=== PATIENT | female | born 1935 | race Hispanic/Latino ===

== ENCOUNTER 2018-03-28 11:49 | Emergency (ER) | payer OTHER ==
--- OUTSIDE RECORDS SUMMARY | 2018-03-28 11:50 | XMS REPORT ---
:1935 Author Organization eClinicalWorks Care Team Providers Name Role Phone Andrew Munoz Provider Role Unavailable Allergies, Adverse Reactions, Alerts Substance Reaction Event Type N.K.D.A. Info Not Available Non Drug Allergy Problems Problem Type Condition Code Onset Dates Condition Status Assessment Chronic diastolic (congestive) heart I50.32 Active failure Assessment Viral upper respiratory tract J06.9 Active infection Problem Atherosclerotic heart disease of I25.10 Active [place] coronary artery without angina pectoris Problem Chronic diastolic (congestive) heart I50.32 Active failure Problem Essential (primary) hypertension I10 Active Problem Bilateral hearing loss, unspecified H91.93 Active hearing loss type Problem Type 2 diabetes mellitus without E11.9 Active complication, unspecified whether detention insulin use Problem Hyperlipidemia, unspecified E78.5 Active hyperlipidemia type Problem Cardiac arrhythmia, unspecified I49.9 Active cardiac arrhythmia type Assessment Essential (primary) hypertension I10 Active Assessment Type 2 diabetes mellitus without E11.9 Active complication, unspecified whether detention insulin use Assessment Bilateral hearing loss, unspecified H91.93 Active hearing loss type Assessment Hyperlipidemia, unspecified E78.5 Active hyperlipidemia type Assessment Abnormal kidney function N28.9 Active Assessment Atherosclerotic heart disease of I25.10 Active [place] coronary artery without angina pectoris Medications Medication Code Code Instructions Start End Status Dosage System Date Date Metformin HCl [facility] [address]-74 1000 MG Orally Active 1 tablet Twice a day with a meal Carvedilol [facility] [address]-68 12.5 MG Orally Active as directed twice a day NovoLog Mix [facility] [address]-27 (70-30) 100 Active 10 units 70/30 Flexpen UNIT/ML Subcutaneous once a day Fluticasone [facility] 21971241489 50 MCG/ACT Feb 09, Active 1 spray in Propionate Nasally Once a 2018 each day nostril Benazepril HCl [facility] 52662114395 20 MG Orally Active 1 tablet Once a day Amlodipine ND 34999345616 10 MG Orally Active 1 tablet Besylate Once a day Simvastatin [facility] 99451071377 20 MG Orally Active 1 tablet in Once a day the evening Megestrol [facility] [address]-98 40 MG/ML Orally Active 20 ml Acetate Once a day Loratadine [facility] 14232342034 10 MG Orally Feb 09, Apr 10, Active 1 capsule Once a day 2017 2017 Alendronate [facility] 89495678702 70 MG Orally Active 1 tablet Sodium every week Results No Known Results Summary Purpose eClinicalWorks Submission
[2018-03-28] MEDS ORDERED: ALBUTEROL 2.5 MG/3 ML NEB SOL ONE (12:54)
--- NOTE | 2018-03-28 13:00 | RAD REPORT ---
EXAM DESCRIPTION: RAD - Chest Single View - 03/28/2018 12:54 pm CLINICAL HISTORY: COUGH Chest pain. COMPARISON: No comparisons FINDINGS: Portable technique limits examination quality. Interstitial markings are prominent bilaterally likely representing pulmonary edema or interstitial p neumonia. The heart is mildly enlarged in size. No displaced fractures.
[2018-03-28 13:29] LABS: Absolute Lymphocytes (CBC) 0.7 K/uL (0.7-4.9); Absolute Monocytes 0.5 K/uL (0.1-1.3); Absolute Neutrophil 4.9 K/uL (1.8-8.0); Eosinophils % 3.1 % (0-4.4); Hematocrit 26.9 % (36.0-45.0); Lymphocytes % 10.7 % (15.3-44.8); MCH 25.8 pg (27.0-35.0); MCV 78.4 fL (80-100); MPV 10.6 fL (7.6-11.3); Monocytes % 7.5 % (3.3-12.3); RBC Red Blood Cell Count 3.44 M/uL (3.86-4.86)
[2018-03-28 13:45] LABS: BUN Blood Urea Nitrogen 26 mg/dL (7-18); Bicarbonate 26 mmol/L (21-32); Glucose Level 263 mg/dL (74-106); NT PRO-BNP 5275 pg/mL (<450); Sodium Level 142 mmol/L (136-145); Troponin (Emerg Dept Use Only) < 0.02 ng/mL (0.0-0.045)
[2018-03-28] MEDS ORDERED: FUROSEMIDE 20 MG/ 2ML VIAL ONE (14:15)
--- NOTE | 2018-03-28 14:44 | EDPHYS ---
Physician Documentation [facility] Name: Dahlia Reyes Age: 82 yrs Sex: Female : 1935 Arrival Date: 03/28/2018 Time: 11:51 Bed 15 Private MD: Andrew Munoz ED Physician Lino Colin HPI: 03/28 14:34 This 82 yrs old Female presents to ER via Ambulatory with complaints of Cough. gs 14:34 The patient or guardian reports cough, that is intermittent. Onset: The gs symptoms/episode began/occurred 2 week(s) ago. Severity of symptoms: At their worst the symptoms were moderate, in the emergency department the symptoms are unchanged. Associated signs and symptoms: Pertinent negatives: chest pain. 14:39 Modifying factors: the symptoms are aggravated by exertion. The patient has experienced gs similar episodes in the past, a few times. The patient has been recently seen by a physician: the patient's primary care provider. Historical: - Allergies: 11:57 No Known Allergies; sg - Home Meds: 11:57 Insulin: Regular Sub-Q [Active]; Metformin Oral [Active]; sg - PMHx: 11:57 Diabetes - NIDDM; High Cholesterol; Hypertension; sg - PSHx: 11:57 Hysterectomy; Cholecystectomy; sg - Immunization history:: Adult Immunizations up to date. - Social history:: Smoking status: Patient/guardian denies using tobacco. - Ebola Screening: : Patient negative for fever greater than or equal to 101.5 degrees Fahrenheit, and additional compatible Ebola Virus Disease symptoms Patient denies exposure to infectious person Patient denies travel to an Ebola-affected area in the 21 days before illness onset No symptoms or risks identified at this time. ROS: 14:39 All other systems are negative. gs Exam: 14:39 Head/Face: Normocephalic, atraumatic. Eyes: Pupils equal round and reactive to light, gs extra-ocular motions intact. Lids and lashes normal. Conjunctiva and sclera are non-icteric and not injected. Cornea within normal limits. Periorbital areas with no swelling, redness, or edema. ENT: Nares patent. No nasal discharge, no septal abnormalities noted. Tympanic membranes are normal and external auditory canals are clear. Oropharynx with no redness, swelling, or masses, exudates, or evidence of obstruction, uvula midline. Mucous membranes moist. Neck: Trachea midline, no thyromegaly or masses palpated, and no cervical lymphadenopathy. Supple, full range of motion without nuchal rigidity, or vertebral point tenderness. No Meningismus. Chest/axilla: Normal chest wall appearance and motion. Nontender with no deformity. No lesions are appreciated. 14:39 Abdomen/GI: Soft, non-tender, with normal bowel sounds. No distension or tympany. No guarding or rebound. No evidence of tenderness throughout. Back: No spinal tenderness. No costovertebral tenderness. Full range of motion. Skin: Warm, dry with normal turgor. Normal color with no rashes, no lesions, and no evidence of cellulitis. Neuro: Awake and alert, GCS 15, oriented to person, place, time, and situation. Cranial nerves II-XII grossly intact. Motor strength 5/5 in all extremities. Sensory grossly intact. Cerebellar exam normal. Normal gait. 14:39 Constitutional: The patient appears alert, awake. 14:39 Cardiovascular: Rate: bradycardic, Rhythm: regular, Pulses: no pulse deficits are appreciated. 14:39 ECG was reviewed by the Attending Physician. 14:39 Respiratory: the patient does not display signs of respiratory distress, Respirations: normal, Breath sounds: rales, that are moderate, are located in both bases, are heard in the left posterior lower lobe, right posterior middle lobe and right posterior lower lobe. 14:39 Musculoskeletal/extremity: Circulation is intact in all extremities. Edema, 1+ to the left ankle, left foot, right ankle and right foot is noted. Vital Signs: 11:58 Pulse 89; Resp 18; Temp 97.6; Pulse Ox 100% ; Weight 55.34 kg (R); Height 4 ft. 11 in. sg (149.86 cm); Pain 3/10; 12:00 BP 144 / 71; sg 14:13 BP 154 / 65; Pulse 55; Resp 19; Pulse Ox 98% on R/A; mh5 11:58 Body Mass Index 24.64 (55.34 kg, 149.86 cm) MDM: 12:32 Patient medically screened. 14:39 Differential Diagnosis: Bronchitis Asthma Exacerbation Pneumonia Other chf. Data gs reviewed: vital signs, nurses notes. Response to treatment: the patient's symptoms have markedly improved after treatment. ED course: pt and family says have had this before do not want admission will take diuretics follow up next week. 03/28 12:38 Order name: Basic Metabolic Panel; Complete Time: 13:55 gs 03/28 12:38 Order name: CBC with Diff; Complete Time: 13:55 03/28 12:38 Order name: Troponin (emerg Dept Use Only); Complete Time: 13:55 03/28 12:38 Order name: XRAY Chest (1 view); Complete Time: 13:04 03/28 12:38 Order name: PROBNP; Complete Time: 13:55 gs 03/28 12:38 Order name: EKG; Complete Time: 12:39 03/28 12:38 Order name: Cardiac monitoring; Complete Time: 13:22 03/28 12:38 Order name: EKG - Nurse/Tech; Complete Time: 13:22 gs 03/28 12:38 Order name: IV Saline Lock; Complete Time: 13:22 03/28 12:38 Order name: Labs collected and sent; Complete Time: 13:22 03/28 12:38 Order name: O2 Per Protocol; Complete Time: 13:22 gs 03/28 12:38 Order name: O2 Sat Monitoring; Complete Time: 13:22 gs EC:39 Rate is 50 beats/min. Rhythm is regular. MT interval is normal. QRS interval is normal. gs QT interval is normal. T waves are Normal. No ST changes noted. Clinical impression: Sinus bradycardia. Interpreted by me. Administered Medications: 13:21 Drug: Albuterol 2.5 mg Route: Inhalation; [facility] 13:45 Follow up: Response: No adverse reaction [facility] 14:16 Drug: Lasix 20 mg Route: IVP; Site: right antecubital; jl7 14:59 Follow up: Response: No adverse reaction jl7 Disposition: 03/28/18 14:43 Discharged to Home. Impression: Heart failure, unspecified. - Condition is Stable. - Discharge Instructions: Heart Failure. - Prescriptions for Lasix 40 mg Oral Tablet - take 1 tablet by ORAL route once daily .; 10 tablet. Potassium Chloride 20 meq Oral Packet - take 1 packet by ORAL route once daily 1 packet in 6 (six) ounces of water or juice; Take after meal start in two days; 5 packet. Albuterol Sulfate 90 mcg/actuation - inhale 1-2 puff by INHALATION route every 4-6 hours; 1 Inhaler. - Medication Reconciliation Form, Thank You Letter, Antibiotic Education, Prescription Opioid Use form. - Follow up: Private Physician; When: 1 - 2 days; Reason: Re-evaluation by your physician. Follow up: Medardo Nickerson MD; When: 2 - 3 days; Reason: Re-evaluation by your physician. Signatures: Dispatcher [employer] EDFlavio Horton RN RN sg Liam Cancino RN RN jl7 Lino Colin MD MD gs Corrections: (The following items were deleted from the chart) 15:01 14:43 03/28/2018 14:43 Discharged to Home. Impression: Heart failure, unspecified. jl7 Condition is Stable. Forms are Medication Reconciliation Form, Thank You Letter, Antibiotic Education, Prescription Opioid Use. Follow up: Private Physician; When: 1 - 2 days; Reason: Re-evaluation by your physician. Follow up: Medardo Nickerson; When: 2 - 3 days; Reason: Re-evaluation by your physician. gs
--- NOTE | 2018-03-28 14:44 | ER ---
Nurse's Notes [facility] Name: Dahlia Reyes Age: 82 yrs Sex: Female : 1935 Arrival Date: 03/28/2018 Time: 11:51 Bed 15 Private MD: Andrew Munoz Diagnosis: Heart failure, unspecified Presentation: 03/28 11:55 Presenting complaint: Child states: Daughter states that she has had a cough for the sg last couple nights, has worsened last night, she sounded like she was choking out last night, has been taking OTC medications for the cough, but it has just been getting worse, denies fever/diarrhea/nausea. Transition of care: patient was not received from another setting of care. Onset of symptoms was March 28, 2018. Risk Assessment: Do you want to hurt yourself or someone else? Patient reports no desire to harm self or others. Care prior to arrival: None. 11:55 Method Of Arrival: Ambulatory sg 11:55 Acuity: NOE 3 sg 12:20 Initial Sepsis Screen: Does the patient meet any 2 criteria? No. Patient's initial jl7 sepsis screen is negative. Does the patient have a suspected source of infection? No. Patient's initial sepsis screen is negative. Historical: - Allergies: 11:57 No Known Allergies; sg - Home Meds: 11:57 Insulin: Regular Sub-Q [Active]; Metformin Oral [Active]; sg - PMHx: 11:57 Diabetes - NIDDM; High Cholesterol; Hypertension; sg - PSHx: 11:57 Hysterectomy; Cholecystectomy; sg - Immunization history:: Adult Immunizations up to date. - Social history:: Smoking status: Patient/guardian denies using tobacco. - Ebola Screening: : Patient negative for fever greater than or equal to 101.5 degrees Fahrenheit, and additional compatible Ebola Virus Disease symptoms Patient denies exposure to infectious person Patient denies travel to an Ebola-affected area in the 21 days before illness onset No symptoms or risks identified at this time. Screenin:30 Abuse screen: Denies threats or abuse. Denies injuries from another. Nutritional jl7 screening: No deficits noted. Tuberculosis screening: No symptoms or risk factors identified. Fall Risk No fall in past 12 months (0 pts). No secondary diagnosis (0 pts). IV access (20 points). Ambulatory Aid- Crutches/Cane/Walker (15 pts). Gait- Normal/Bed Rest/Wheelchair (0 pts) Mental Status- Oriented to own ability (0 pts). Total Benítez Fall Scale indicates Low Risk Score (25-44 pts). Fall prevention measures have been instituted. Side Rails Up X 2 Placed close to Nursing Station Frequent Obs/Assesments occuring Family Present and informed to notify staff if they need to leave bedside As available Patient and Family Educated on Fall Prevention Program and strategies. Assessment: 13:22 General: Appears in no apparent distress. comfortable, Behavior is calm, cooperative, jl7 appropriate for age. Pain: Denies pain. Neuro: Level of Consciousness is awake, alert, obeys commands, Oriented to person, place, time, situation. Cardiovascular: Heart tones present Patient's skin is warm and dry. Respiratory: Reports cough that is hacking, persistent Airway is patent Respiratory effort is even, unlabored, Respiratory pattern is regular, symmetrical, Breath sounds are coarse bilaterally. Breath sounds with crackles bilaterally. GI: No signs and/or symptoms were reported involving the gastrointestinal system. : No signs and/or symptoms were reported regarding the genitourinary system. EENT: Reports Very hard of hearing. Derm: Skin is pink, warm \T\ dry. Musculoskeletal: No signs and/or symptoms reported regarding the musculoskeletal system. 14:30 Reassessment: No changes from previously documented assessment. Patient and/or family jl7 updated on plan of care and expected duration. Pain level reassessed. Patient is alert, oriented x 3, equal unlabored respirations, skin warm/dry/pink. Vital Signs: 11:58 Pulse 89; Resp 18; Temp 97.6; Pulse Ox 100% ; Weight 55.34 kg (R); Height 4 ft. 11 in. sg (149.86 cm); Pain 3/10; 12:00 BP 144 / 71; sg 14:13 BP 154 / 65; Pulse 55; Resp 19; Pulse Ox 98% on R/A; mh5 11:58 Body Mass Index 24.64 (55.34 kg, 149.86 cm) ED Course: 11:51 Patient arrived in ED. mr 11:52 Andrew Munoz MD is Private Physician. mr 11:56 Triage completed. sg 11:56 Arm band placed on. sg 12:07 Colin, Lino, MD is Attending Physician. 12:20 Patient has correct armband on for positive identification. Placed in gown. Bed in low jl7 position. Call light in reach. Side rails up X 1. 12:46 Liam Cancino RN is Primary Nurse. jl7 12:53 X-ray completed. Portable x-ray completed in exam room. Patient tolerated procedure tm4 well. 12:54 XRAY Chest (1 view) In Process Unspecified. EDMS 13:26 Initial lab(s) drawn, by me, sent to lab. Inserted saline lock: 20 gauge in right jl7 antecubital area, using aseptic technique. Blood collected. 14:37 Assisted to bathroom. jl7 14:43 Medardo Nickerson MD is Referral Physician. 15:00 No provider procedures requiring assistance completed. IV discontinued, intact, jl7 bleeding controlled, No redness/swelling at site. Pressure dressing applied. Administered Medications: 13:21 Drug: Albuterol 2.5 mg Route: Inhalation; jl7 13:45 Follow up: Response: No adverse reaction jl7 14:16 Drug: Lasix 20 mg Route: IVP; Site: right antecubital; jl7 14:59 Follow up: Response: No adverse reaction jl7 Outcome: 14:43 Discharge ordered by . 15:00 Discharged to home ambulatory, with family. jl7 15:00 Condition: stable 15:00 Discharge instructions given to patient, family, Instructed on discharge instructions, follow up and referral plans. medication usage, Demonstrated understanding of instructions, follow-up care, medications, Prescriptions given X 3. 15:01 Patient left the ED. jl7 Signatures: Dispatcher [employer] EDMS Flavio Fritz, RN MEL Callahan, Shoshana Olivera tm4 Rhina Kendrick 5 Liam Cancino, MEL LEAL jl7 Lino Colin MD MD
--- NOTE | 2018-03-29 06:47 | EKG ---
Test Date: 2018-03-28 Test Time: 13:27:26 [employer]: [place] MEASUREMENT RESULTS: Intervals: Rate: 50 MS: 128 QRSD: 86 QT: 464 QTc: 423 Alpha: P: 51 MS: 128 QRS: 25 T: 21 INTERPRETIVE STATEMENTS: Sinus bradycardia Otherwise normal ECG No previous ECG available for comparison Electronically Signed On 03-29-18 06:46:10 CDT by Joseph Edwards
== END 2018-03-28 15:01 | disposition home or self-care (01) ==
LOC: ER 11:49
DX: I50.9 Heart failure, unspecified (principal); I10 Essential (primary) hypertension; E11.9 Type 2 diabetes mellitus without complications; Z79.4 Long term (current) use of insulin
CPT/HCPCS: 36415; 71045; 80048; 83880; 84484; 85025; 93005; 96374; 99284; J1940

== ENCOUNTER 2018-04-30 11:03 | Inpatient (IN) | payer OTHER ==
--- OUTSIDE RECORDS SUMMARY | 2018-04-30 11:06 | XMS REPORT ---
[...] Problem Atherosclerotic heart disease of I25.10 Active [place] coronary artery without angina pectoris Problem Chronic diastolic (congestive) heart I50.32 Active failure Problem Essential (primary) hypertension I10 Active Problem Bilateral hearing loss, unspecified H91.93 Active hearing loss type Problem Type 2 diabetes mellitus without E11.9 Active complication, unspecified whether snf insulin use Problem Hyperlipidemia, unspecified E78.5 Active hyperlipidemia type Problem Cardiac arrhythmia, unspecified I49.9 Active cardiac arrhythmia type Assessment Essential (primary) hypertension I10 Active Assessment Type 2 diabetes mellitus without E11.9 Active complication, unspecified whether snf insulin use Assessment Bilateral hearing loss, unspecified H91.93 Active hearing loss type Assessment Hyperlipidemia, unspecified E78.5 Active hyperlipidemia type Assessment Abnormal kidney function N28.9 Active Assessment Atherosclerotic heart disease of I25.10 Active [place] coronary artery without angina pectoris Medications Medication Code Code Instructions Start End Status Dosage System Date Date Metformin HCl [facility] [address]-60 1000 MG Orally Active 1 tablet Twice a day with a meal Carvedilol [facility] [address]-77 12.5 MG Orally Active as directed twice a day NovoLog Mix [facility] [address]-26 (70-30) 100 Active 10 units 70/30 Flexpen UNIT/ML Subcutaneous once a day Fluticasone [facility] 15243628234 50 MCG/ACT Feb 09, Active 1 spray in Propionate Nasally Once a 2018 each day nostril Benazepril HCl [facility] 01168958711 20 MG Orally Active 1 tablet Once a day Amlodipine ND 34049789149 10 MG Orally Active 1 tablet Besylate Once a day Simvastatin [facility] 16703700085 20 MG Orally Active 1 tablet in Once a day the evening Megestrol [facility] [address]-82 40 MG/ML Orally Active 20 ml Acetate Once a day Loratadine [facility] 12938054056 10 MG Orally Feb 09, Apr 10, Active 1 capsule Once a day [address] [facility] 27584176940 70 MG Orally Active 1 tablet Sodium every week Results No Known Results Summary Purpose eClinicalWorks Submission
--- OUTSIDE RECORDS SUMMARY | 2018-04-30 11:06 | XMS REPORT ---
:1935 Author [facility] Team Providers Name Role Phone Andrew Munoz Provider Role Unavailable Allergies No Known Allergies Problems Problem Type Condition Code Onset Dates Condition Status Assessment Hyperlipidemia, unspecified E78.5 Active hyperlipidemia type Problem Bilateral hearing loss, unspecified H91.93 Active hearing loss type Assessment Stage 3 chronic kidney disease N18.3 Active Assessment Essential (primary) hypertension I10 Active Assessment Chronic diastolic (congestive) heart I50.32 Active failure Problem Type 2 diabetes mellitus without E11.9 Active complication, 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 Problem Essential (primary) hypertension I10 Active Problem Stage 3 chronic kidney disease N18.3 Active Problem Hyperlipidemia, unspecified E78.5 Active hyperlipidemia type Problem Cardiac arrhythmia, unspecified I49.9 Active cardiac arrhythmia type Problem Atherosclerotic heart disease of I25.10 Active [place] coronary artery without angina pectoris Problem Chronic diastolic (congestive) heart I50.32 Active failure Medications Medication Code Code Instructions Start End Status Dosage System Date Date Loratadine [facility] 07984395042 10 MG Orally Feb 09, Apr 10, Active 1 capsule Once a day 2017 2017 Carvedilol [facility] 21762768315 12.5 MG Orally Active as directed twice a day Albuterol [facility] [address]-23 108 (90 Base) Active 2 puffs as Sulfate HFA MCG/ACT needed Inhalation every 6 hrs Benazepril HCl [facility] 76930476129 20 MG Orally Active 1 tablet Once a day Fluticasone [facility] 27827027353 50 MCG/ACT Feb 09, Active 1 spray in Propionate Nasally Once a 2018 each day nostril NovoLog Mix [facility] 12910049762 (70-30) 100 Active 10 units 70/30 Flexpen UNIT/ML Subcutaneous once a day Metformin HCl [facility] 04277436422 1000 MG Orally Active 1 tablet Twice a day with a meal Amlodipine [facility] 96865530065 10 MG Orally Active 1 tablet Besylate Once a day Alendronate [facility] 57477555263 70 MG Orally Active 1 tablet Sodium every week Potassium [facility] 35714737157 - Active as directed Chloride Simvastatin [facility] 47770482954 20 MG Orally Active 1 tablet in Once a day the evening ProAir HFA [facility] 94262736479 108 (90 Base) Mar 31, Active 2 puffs as MCG/ACT 2018 needed Inhalation every 6 hrs Megestrol [facility] 75128608140 40 MG/ML Orally Active 20 ml Acetate Once a day Lasix [facility] 64123252668 20 MG Orally Active 1 tablet Once a day Results No Known Results Summary Purpose eClinicalWorks Submission
--- NOTE | 2018-04-30 11:59 | RAD REPORT ---
EXAM DESCRIPTION: CT - Head Brain Wo Cont - 04/30/2018 11:43 am CLINICAL HISTORY: Right facial numbness COMPARISON: None TECHNIQUE: Computed axial tomography of the head was obtained. IV contrast was not requested. All CT scans are performed using dose optimization technique as appropriate and may include automated exposure control or mA/KV adjustment according to patient size. FINDINGS: Couple of tiny areas of increased density are present within the left basal ganglia. . The ventricles are normal in caliber. Small low-density within the right cerebellum may indicate old infarct No extra-axial fluid collection is noted. Mild to moderate low-density areas within periventricular, deep and subcortical white matter likely represent ischemic changes secondary to small vessel disease . Small amount of fluid within the ethmoid sinus may indicate acute sinusitis. IMPRESSION: A couple of punctate areas increased density within the left basal ganglia likely repres ent calcification. No acute intracranial abnormality is seen. Given the history of right facial numbn ess MRI the brain is recommended for further evaluation
[2018-04-30 12:36] LABS: Absolute Lymphocytes (CBC) 0.6 K/uL (0.7-4.9); Absolute Monocytes 0.7 K/uL (0.1-1.3); Basophils % 1.3 % (0-1.3); Eosinophils % 0.5 % (0-4.4); Hematocrit 27.9 % (36.0-45.0); Lymphocytes % 5.1 % (15.3-44.8); MCH 24.4 pg (27.0-35.0); MCV 76.2 fL (80-100); MPV 10.1 fL (7.6-11.3); RBC Red Blood Cell Count 3.67 M/uL (3.86-4.86)
[2018-04-30 12:53] LABS: Potassium 4.4 mmol/L (3.5-5.1)
--- NOTE | 2018-04-30 12:58 | RAD REPORT ---
EXAM DESCRIPTION: Fermni Diaz And Lat (2 Views)04/30/2018 11:55 am CLINICAL HISTORY: Cough COMPARISON: February 2018 FINDINGS: Moderate bilateral reticulonodular opacities are present within the lungs without signifi cant change. The heart is normal size IMPRESSION: Moderate bilateral reticulonodular opacities within the lungs may indicate atypical inf ection
[2018-04-30 13:03] LABS: Urine White Blood Cell Casts OK
[2018-04-30 13:04] LABS: Anisocytosis 1+; Blood Morphology Comment NOTED (NOT SEEN); Hypochromasia 1+; Platelet Estimate ADEQ; Platelets, Giant FEW
[2018-04-30] MEDS ORDERED: METHYLPREDNISOLONE 125 MG INJ ONE (13:50)
[2018-04-30] MEDS ORDERED: LEVALBUTEROL 1.25 MG/3 ML NEB ONE (13:50)
[2018-04-30] MEDS ORDERED: Levofloxacin500mg IV 500 MG/100 ML BAG IV ONE (13:51)
--- NOTE | 2018-04-30 13:53 | ER ---
Nurse's Notes [facility] Name: Dahlia Reyes Age: 82 yrs Sex: Female : 1935 Arrival Date: 04/30/2018 Time: 11:06 Bed 20 Private MD: Andrew Munoz Diagnosis: Interstitial Pneumonia;Chronic obstructive pulmonary disease with acute lower respiratory infection;Acute kidney failure Presentation: 04/30 11:11 Presenting complaint: Patient states: "I've had this cough forever and the doctors aj1 can't do anything for me. I'm not eating, I've lost my appetite." Reports cough for the past 3 months. Reports that she had some numbness to the left side of her face that started 2 days ago and is still there but not as bad. Daughter states that her eye looked "sleepy" 2 days ago, but that has resolved. Reports generalized weakness. Transition of care: patient was not received from another setting of care. No acute neurological deficit is noted. Onset of symptoms was April 28, 2018. Risk Assessment: Do you want to hurt yourself or someone else? Patient reports no desire to harm self or others. Initial Sepsis Screen: Does the patient meet any 2 criteria? No. Patient's initial sepsis screen is negative. Does the patient have a suspected source of infection? Yes: Productive cough/pneumonia. Care prior to arrival: None. 11:11 Method Of Arrival: Ambulatory aj1 11:11 Acuity: NOE 3 aj1 Triage Assessment: 11:17 The onset of the patients symptoms was April 28, 2018 at 06:00. General: Appears in aj1 no apparent distress. comfortable, Behavior is calm, cooperative, appropriate for age. Pain: Complains of pain in generalized pain Pain currently is 7 out of 10 on a pain scale. Neuro: Level of Consciousness is awake, alert, obeys commands, Oriented to person, place, time, situation, Pointing Machine Operator are equal bilaterally Speech is normal, Reports numbness to the face that started 2 days ago generalized weakness. Cardiovascular: Patient's skin is warm and dry. Respiratory: Airway is patent Respiratory effort is even, unlabored, Respiratory pattern is regular, symmetrical. Stroke Activation: Symptom onset > 6 hours Physician: Stroke Attending; Name: ; Notified At: ; Arrived At: Physician: Chief Stroke Resident; Name: ; Notified At: ; Arrived At: Physician: Stroke Resident; Name: ; Notified At: ; Arrived At: Physician: ED Attending; Name: ; Notified At: ; Arrived At: Physician: ED Resident; Name: ; Notified At: ; Arrived At: Historical: - Allergies: :17 No Known Allergies; aj1 - Home Meds: 11:17 Insulin: Regular Sub-Q [Active]; Metformin Oral [Active]; Megestrol Acetate Oral aj1 [Active]; alendronate oral oral [Active]; amlodipine oral [Active]; benazepril oral oral [Active]; carvedilol oral oral [Active]; Simvastatin Oral [Active]; - PMHx: 11:17 Diabetes - NIDDM; High Cholesterol; Hypertension; COPD; aj1 - PSHx: 15:13 Hysterectomy; ; Appendectomy; Knee surgery; Tonsillectomy; em 15:13 Cholecystectomy; em - Immunization history:: Flu vaccine is up to date. - Social history:: Smoking status: Patient/guardian denies using tobacco. - Ebola Screening: : Patient denies travel to an Ebola-affected area in the 21 days before illness onset. - Family history:: not pertinent. - Hospitalizations: : No recent hospitalization is reported. Screenin:30 Abuse screen: Denies threats or abuse. Nutritional screening: No deficits noted. em Tuberculosis screening: No symptoms or risk factors identified. Fall Risk None identified. Assessment: 11:30 General: Appears in no apparent distress. comfortable, Behavior is calm, cooperative. em Pain: Denies pain. Neuro: Level of Consciousness is awake, alert, obeys commands, Oriented to person, place, time, situation, Reports eye and lip numbness that lasted several minutes, but has resolved. Cardiovascular: Heart tones S1 S2 present Capillary refill < 3 seconds Patient's skin is warm and dry. Respiratory: Airway is patent Respiratory effort is even, unlabored, Respiratory pattern is regular, symmetrical, Breath sounds with crackles bilaterally. GI: Abdomen is flat. : No signs and/or symptoms were reported regarding the genitourinary system. EENT: No signs and/or symptoms were reported regarding the EENT system. Derm: Skin is intact, Skin is pink, warm \\T\\ dry. Musculoskeletal: Range of motion: intact in all extremities. 11:40 Reassessment: I agree with previous assessment. hb 12:29 Reassessment: Patient appears in no apparent distress at this time. Patient and/or em family updated on plan of care and expected duration. Pain level reassessed. Patient is alert, oriented x 3, equal unlabored respirations, skin warm/dry/pink. 13:32 Reassessment: Patient appears in no apparent distress at this time. Patient and/or em family updated on plan of care and expected duration. Pain level reassessed. Patient is alert, oriented x 3, equal unlabored respirations, skin warm/dry/pink. Patient denies pain at this time. 14:52 Reassessment: Patient appears in no apparent distress at this time. Patient and/or em family updated on plan of care and expected duration. Pain level reassessed. Patient is alert, oriented x 3, equal unlabored respirations, skin warm/dry/pink. Patient denies pain at this time. Patient states feeling better. Vital Signs: 11:17 BP 130 / 60; Pulse 67; Resp 20; Temp 98.0; Pulse Ox 93% on R/A; Weight 53.52 kg (R); aj1 Height 5 ft. 2 in. (157.48 cm) (R); 12:30 BP 124 / 74; Pulse 66; Resp 19; Pulse Ox 93% on R/A; em 13:31 BP 116 / 79; Pulse 68; Resp 21; Pulse Ox 96% on R/A; Pain 0/10; em 14:53 BP 134 / 78; Pulse 81; Resp 19; Pulse Ox 94% on R/A; Pain 0/10; em 11:17 Body Mass Index 21.58 (53.52 kg, 157.48 cm) aj1 ED Course: 11:06 Patient arrived in ED. sb2 11:07 Andrew Munoz MD is Private Physician. sb2 11:15 Triage completed. aj1 11:17 Arm band placed on Patient placed in an exam room. aj1 11:20 Joe Neal LVN is Primary Nurse. em 11:22 Gamaliel Torres MD is Attending Physician. rn 11:30 Patient has correct armband on for positive identification. Placed in gown. Bed in low em position. Call light in reach. Side rails up X2. Adult w/ patient. 11:42 CT completed. Patient tolerated procedure well. Patient moved to CT via wheelchair. [id number] Patient moved to radiology via wheelchair. Patient moved back from CT. 11:43 CT Head Brain wo Cont In Process Unspecified. EDMS 11:50 X-ray completed. Patient tolerated procedure well. Patient moved back from radiology. kw 11:51 XRAY Chest Pa And Lat (2 Views) In Process Unspecified. EDMS 12:20 Initial lab(s) drawn, by me, sent to lab. Inserted saline lock: 20 gauge in right em forearm, using aseptic technique. Blood collected. 13:52 Andrew Munoz MD is Hospitalizing Provider. rn 15:05 No provider procedures requiring assistance completed. Patient admitted, IV remains in em place. Administered Medications: 13:45 Drug: Xopenex 1.25 mg Route: Inhalation; em 14:30 Follow up: Response: No adverse reaction; Marked relief of symptoms em 13:47 Drug: SOLU-Medrol 125 mg Route: IVP; Site: right forearm; hb 14:30 Follow up: Response: No adverse reaction em 14:05 Drug: LevaQUIN 500 mg Volume: 100 ml; Route: IVPB; Infused Over: 60 mins; Site: right em forearm; 14:58 Follow up: Response: No adverse reaction; IV Status: Completed infusion; IV Intake: em 100ml Intake: 14:58 IV: 100ml; Total: 100ml. em Outcome: 13:53 Decision to Hospitalize by Provider. rn 15:05 Admitted to Tele accompanied by tech, via wheelchair, room 212, with chart, Report em called to MEL Rendon 15:05 Condition: good 15:05 Instructed on the need for admit, Demonstrated understanding of instructions. 15:19 Patient left the ED. Signatures: Dispatcher [employer] EDSwathi King RN RN aj1 Joe Neal, HORIZONTAL BORING MILL OPERATOR HORIZONTAL BORING MILL OPERATOR em Gamaliel Torres MD MD rn Whitley, Kimberlee kw Baxter, Heather, RN RN Angela Lombardi Jessica jg6
--- NOTE | 2018-04-30 13:53 | EDPHYS ---
Physician Documentation [facility] Name: Dahlia Reyes Age: 82 yrs Sex: Female : 1935 Arrival Date: 04/30/2018 Time: 11:06 Bed 20 Private MD: Andrew Munoz ED Physician Gamaliel Torres HPI: 04/30 12:31 This 82 yrs old Female presents to ER via Ambulatory with complaints of Cough, rn Weakness, Numbness Of Face. 12:31 The patient or guardian reports cough. Onset: The symptoms/episode began/occurred 3 rn month(s) ago. Severity of symptoms: At their worst the symptoms were moderate, in the emergency department the symptoms are unchanged. Modifying factors: The symptoms are alleviated by nothing, the symptoms are aggravated by nothing. The patient has experienced similar episodes in the past. Reports chronic cough, no clear diagnosis, has been told has COPD, from second hand smoke, no fever, reports cough is starting to cause her to lose appetite and trouble sleeping. No hemoptysis. Also reports right sided facial weakness yesterday, no longer present, has happened before. No other focal neurological complaint. No acute change in cough. Has been sent to pulmonology and cardiology. On diuretics.. Historical: - Allergies: 11:17 No Known Allergies; aj1 - Home Meds: 11:17 Insulin: Regular Sub-Q [Active]; Metformin Oral [Active]; Megestrol Acetate Oral aj1 [Active]; alendronate oral oral [Active]; amlodipine oral [Active]; benazepril oral oral [Active]; carvedilol oral oral [Active]; Simvastatin Oral [Active]; - PMHx: 11:17 Diabetes - NIDDM; High Cholesterol; Hypertension; COPD; aj1 - PSHx: 15:13 Hysterectomy; ; Appendectomy; Knee surgery; Tonsillectomy; em 15:13 Cholecystectomy; em - Immunization history:: Flu vaccine is up to date. - Social history:: Smoking status: Patient/guardian denies using tobacco. - Ebola Screening: : Patient denies travel to an Ebola-affected area in the 21 days before illness onset. - Family history:: not pertinent. - Hospitalizations: : No recent hospitalization is reported. ROS: 12:31 Constitutional: Negative for fever, chills, and weight loss, Eyes: Negative for injury, rn pain, redness, and discharge, Cardiovascular: Negative for chest pain, palpitations, and edema, Respiratory: Negative for wheezing, and pleuritic chest pain, Abdomen/GI: Negative for abdominal pain, nausea, vomiting, diarrhea, and constipation, MS/Extremity: Negative for injury and deformity, Skin: Negative for injury, rash, and discoloration, Neuro: Negative for headache, and seizure. Exam: 12:31 Constitutional: This is a well developed, well nourished patient who is awake, alert, rn and in no acute distress. + persistent cough. Head/Face: Normocephalic, atraumatic. ENT: no stridor, MMM Cardiovascular: Regular rate and rhythm with a normal S1 and S2. No gallops, murmurs, or rubs. Normal PMI, no JVD. No pulse deficits. Respiratory: + bibasilar crackles, no wheezing, mild tachypnea Abdomen/GI: soft, non-tender Skin: Warm, dry with normal turgor. Normal color with no rashes, no lesions, and no evidence of cellulitis. MS/ Extremity: Pulses equal, no cyanosis. Neurovascular intact. Full, normal range of motion. Equal circumference. Neuro: Awake and alert, GCS 15, oriented to person, place, time, and situation. Cranial nerves II-XII grossly intact. Motor strength 5/5 in all extremities. Sensory grossly intact. Cerebellar exam normal. Vital Signs: 11:17 BP 130 / 60; Pulse 67; Resp 20; Temp 98.0; Pulse Ox 93% on R/A; Weight 53.52 kg (R); aj1 Height 5 ft. 2 in. (157.48 cm) (R); 12:30 BP 124 / 74; Pulse 66; Resp 19; Pulse Ox 93% on R/A; em 13:31 BP 116 / 79; Pulse 68; Resp 21; Pulse Ox 96% on R/A; Pain 0/10; em 14:53 BP 134 / 78; Pulse 81; Resp 19; Pulse Ox 94% on R/A; Pain 0/10; em 11:17 Body Mass Index 21.58 (53.52 kg, 157.48 cm) aj MDM: 11:22 Patient medically screened. rn 13:51 Differential Diagnosis: Bronchitis Upper Respiratory Infection Viral Syndrome rn Pneumonia. Data reviewed: vital signs, nurses notes, lab test result(s), EKG, radiologic studies, plain films, and as a result, I will admit patient. Counseling: I had a detailed discussion with the patient and/or guardian regarding: the historical points, exam findings, and any diagnostic results supporting the discharge/admit diagnosis, lab results, radiology results, the need for further work-up and treatment in the hospital. Response to treatment: the patient's symptoms have mildly improved after treatment, and as a result, I will admit patient. Admission orders: after a detailed discussion of the patient's condition and case, the admit orders are written by me. 04/30 11:32 Order name: CBC with Diff; Complete Time: 13:07 rn 04/30 11:32 Order name: Basic Metabolic Panel; Complete Time: 13:07 rn 04/30 11:32 Order name: XRAY Chest Pa And Lat (2 Views); Complete Time: 13:07 rn 04/30 11:32 Order name: N-Terminal Pro-brain Natriuretic Peptide; Complete Time: 13:07 rn 04/30 12:41 Order name: CBC Smear Scan; Complete Time: 13:07 EDMS 04/30 13:39 Order name: Blood Culture Adult (2) rn 04/30 11:32 Order name: IV Start; Complete Time: 12:22 rn 04/30 11:32 Order name: CT Head Brain wo Cont; Complete Time: 13:07 rn Administered Medications: 13:45 Drug: Xopenex 1.25 mg Route: Inhalation; em 14:30 Follow up: Response: No adverse reaction; Marked relief of symptoms em 13:47 Drug: SOLU-Medrol 125 mg Route: IVP; Site: right forearm; hb 14:30 Follow up: Response: No adverse reaction em 14:05 Drug: LevaQUIN 500 mg Volume: 100 ml; Route: IVPB; Infused Over: 60 mins; Site: right em forearm; 14:58 Follow up: Response: No adverse reaction; IV Status: Completed infusion; IV Intake: em 100ml Disposition: 04/30/18 13:53 Hospitalization ordered by Andrew Munoz for Inpatient Admission. Preliminary diagnosis are Interstitial Pneumonia, Chronic obstructive pulmonary disease with acute lower respiratory infection, Acute kidney failure. - Bed requested for Telemetry/MedSurg (Inpatient). - Status is Inpatient Admission. hb - Condition is Stable. - Problem is new. - Symptoms have improved. UTI on Admission? No Signatures: Dispatcher [employer] Swathi Werner, RN RN aj1 Joe Neal, STRAW HAT PLUNGER OPERATOR STRAW HAT PLUNGER OPERATOR em Gamaliel Torres MD MD rn Baxter, Heather, RN RN Andressa Abreu Corrections: (The following items were deleted from the chart) 13:56 13:53 Hospitalization Ordered by Andrew Munoz MD for Inpatient Admission. Preliminary eb diagnosis is Interstitial Pneumonia; Chronic obstructive pulmonary disease with acute lower respiratory infection; Acute kidney failure. Bed requested for Telemetry/MedSurg (Inpatient). Status is Inpatient Admission. Condition is Stable. Problem is new. Symptoms have improved. UTI on Admission? No. rn 14:37 13:56 04/30/2018 13:53 Hospitalization Ordered by Andrew Munoz MD for Inpatient eb Admission. Preliminary diagnosis is Interstitial Pneumonia; Chronic obstructive pulmonary disease with acute lower respiratory infection; Acute kidney failure. Bed requested for Telemetry/MedSurg (Inpatient). Status is Inpatient Admission. Condition is Stable. Problem is new. Symptoms have improved. UTI on Admission? No. eb 15:19 14:37 04/30/2018 13:53 Hospitalization Ordered by Andrew Munoz MD for Inpatient hb Admission. Preliminary diagnosis is Interstitial Pneumonia; Chronic obstructive pulmonary disease with acute lower respiratory infection; Acute kidney failure. Bed requested for Telemetry/MedSurg (Inpatient). Status is Inpatient Admission. Condition is Stable. Problem is new. Symptoms have improved. UTI on Admission? No. eb
[2018-04-30] MEDS ORDERED: ONDANSETRON 4 MG/2 ML VIAL IV PRN (15:48)
[2018-04-30] MEDS ORDERED: ALBUTEROL 2.5 MG/3 ML NEB SOL NEB PRN (15:48)
[2018-04-30 16:15] VITALS: BMI 39.3
[2018-04-30] MEDS ORDERED: METHYLPREDNISOLONE 40 MG INJ IV SCH (17:00)
[2018-04-30] MEDS ORDERED: GLUCAGON 1 MG/VIAL IM PRN (17:41)
[2018-04-30] MEDS ORDERED: D50W 25 GM/50 ML SYRINGE IV PRN (17:41)
--- NOTE | 2018-04-30 17:44 | P.HP ---
Certification for Inpatient Patient admitted to: Inpatient With expected LOS: >2 Midnights Patient will require the following post-hospital care: None Practitioner: I am a practitioner with admitting privileges, knowledge of patient current condition, hospital course, and medical plan of care. Services: Services provided to patient in accordance with Admission requirements found in Title 42 Section 412.3 of the Code of Federal Regulations Patient History Date of Service: 04/30/18 Primary Care Provider: Alexander Reason for admission: strep pneumonia History of Present Illness: Patient is an office patient of [facility]. History of heart disease for which she see's Dr. Maurice in [place]. Diabetes, htn and ckd. She has been having a cough on and off for 3 months. Has been to the office. States she has not been eating very well, been getting weaker. The patient came to the ER. She was found to have worsening bilateral basilar infiltrates. She had elevated creatine and BUN. She had stable vitals. However based on her advanced age decided to bring her in for iv antibiotics. Allergies No Known Allergies Allergy (Verified 04/30/18 15:33) Home Medications: Alendronate Sodium 70 mg PO Q7D 04/30/18 Amlodipine Besylate 10 mg PO DAILY 04/30/18 Benazepril HCl 20 mg PO DAILY 04/30/18 Carvedilol 12.5 mg PO BIDWM 04/30/18 Furosemide 40 mg PO DAILY 04/30/18 Insulin Aspart Protam & Aspart [Novolog Mix 70-30 Flexpen Syrn] 10 unit SQ DAILY 04/30/18 Megestrol [Megace*] 800 mg PO DAILY 04/30/18 Metformin HCl 1,000 mg PO BIDWM 04/30/18 Simvastatin 20 mg PO BEDTIME 04/30/18 - Past Medical/Surgical History Has patient received pneumonia vaccine in the past: Yes Diabetic: Yes -: 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 -: HTN -: hyperlipidemia, -: Rt knee surg -: lana -: toncilectomy -: hystectomy -: appy - Family History Father -: Cancer Notes: prostrate Mother -: Stroke - Social History Smoking Status: Never smoker Alcohol use: Yes CD- Drugs: No Caffeine use: Yes Place of Residence: Home Review of Systems 10-point ROS is otherwise unremarkable General: Weakness, Malaise Respiratory: Cough, Sputum (states 3tbsp in the am) Physical Examination - Vital Signs Temperature: 98.0 F Blood Pressure: 134/78 Pulse: 81 Respirations: 19 - Physical Exam General: Alert, In no apparent distress HEENT: Atraumatic, PERRLA, Mucous membr. moist/pink, EOMI, Sclerae nonicteric Neck: Supple, 2+ carotid pulse no bruit, No LAD, Without JVD or thyroid abnormality Respiratory: Clear to auscultation bilaterally, Normal air movement Cardiovascular: Regular rate/rhythm, Normal S1 S2 Gastrointestinal: Normal bowel sounds, No tenderness Musculoskeletal: No tenderness Integumentary: No rashes Neurological: Normal gait, Normal speech, Normal strength at 5/5 x4 extr, Normal tone, Normal affect Lymphatics: No axilla or inguinal lymphadenopathy - Studies Laboratory Data (last 24 hrs) 04/30/18 12:20: WBC 12.6 H, Hgb 8.9 L, Hct 27.9 L, Plt Count 287 04/30/18 12:20: Sodium 140, Potassium 4.4, BUN 43 H, Creatinine 2.10 H, Glucose 77 Assessment and Plan - Problems (Diagnosis) (1) Streptococcus pneumoniae Current Visit: Yes Status: Acute Plan: Patient's curb 65 is 2. Which correlates for a 3% mortality. Will start her on fluids. Gently hydration and breathing treatment. Will stop the patient steroids. She is not currently wheezing (2) Diabetes 1.5, managed as type 2 Current Visit: Yes Status: Acute Plan: Will hold the patients metformin due to kidney function. Will cover her on the sliding scale. (3) Acute on chronic renal failure Current Visit: Yes Status: Acute Plan: Patients baseline creatine is 1.5, a stage 3. Will start her on gently hydration. Hold jessica and metformin. Will continue amlodipine. Restart carvedilol as her bp and kidney function recover Qualifiers: Chronic kidney disease stage: stage 4 (severe) (4) CHF (congestive heart failure), NYHA class I Current Visit: Yes Status: Acute Plan: treated by Dr. Maurice. Had a recent outpatient echo. Will hold the beta mai. Restart in the am. Hold the jessica. Continue simvastatin Qualifiers: Congestive heart failure type: unspecified Qualified Code(s): I50.9 - Heart failure, unspecified Discharge Plan: Home Plan to discharge in: 48 Hours - Advance Directives Does patient have a Living Will: Yes Does patient have a Durable POA for Healthcare: Yes - Code Status/Comfort Care Code Status Assessed: No Code Status: Full Code Physician Review: Patient Assessed, Agree with Above Assessment and Plan Critical Care: No Time Spent Managing Pts Care (In Minutes): 50
[2018-04-30] MEDS: ENOXAPARIN 30 MG/0.3 ML SQ SCH (18:08)
[2018-04-30] MEDS: NA CHLORIDE 0.9% 1,000 ML IV SCH (18:10)
[2018-04-30] MEDS: ATORVASTATIN 10 MG TAB PO SCH (20:22)
[2018-04-30] MEDS ORDERED: HOME MED 1 EA UNK (Simvastatin [Simvastatin] 20 MG) PO SCH (21:00)
[2018-04-30] MEDS: INSULIN -REGULAR HUMAN 50 UNIT/0.5 ML ML SQ SCH (21:34)
[2018-05-01 06:10] LABS: Absolute Lymphocytes (CBC) 0.4 K/uL (0.7-4.9); Absolute Monocytes 0.1 K/uL (0.1-1.3); Absolute Neutrophil 9.5 K/uL (1.8-8.0); Hematocrit 25.6 % (36.0-45.0); Lymphocytes % 4.2 % (15.3-44.8); MCH 24.9 pg (27.0-35.0); MCV 77.8 fL (80-100); MPV 10.4 fL (7.6-11.3); Monocytes % 1.1 % (3.3-12.3)
[2018-05-01 06:33] LABS: Potassium 5.6 mmol/L (3.5-5.1)
[2018-05-01] MEDS: NA CHLORIDE 0.9% 1,000 ML IV SCH ×2 (06:35→20:11)
[2018-05-01] MEDS: PANTOPRAZOLE 40MG TABLET PO SCH (08:54)
[2018-05-01] MEDS: ASPIRIN EC 81 MG TAB PO SCH (08:54)
[2018-05-01] MEDS: INSULIN -REGULAR HUMAN 50 UNIT/0.5 ML ML SQ SCH ×4 (08:54→20:11)
[2018-05-01] MEDS: AMLODIPINE 10 MG TAB PO SCH (08:55)
[2018-05-01] MEDS ORDERED: BUPIVACA 0.5%/EPI 0.0005%/PF 30 ML VIAL ONE (11:11)
[2018-05-01] MEDS ORDERED: Ringers Lactate 0 ML IV ONE (11:11)
[2018-05-01] MEDS ORDERED: INSULIN -REGULAR HUMAN 50 UNIT/0.5 ML ML SQ ONE (12:15)
--- NOTE | 2018-05-01 12:15 | P.PN ---
Subjective Date of Service: 05/01/18 Primary Care Provider: Alexander Chief Complaint: strep pneumonia Subjective: No new changes (Patient is in bed having lunch. states she walked the [place]. Has an elevated sugar per nursing) Review of Systems 10-point ROS is otherwise unremarkable Physical Examination - Vital Signs Temperature: 97 F Blood Pressure: 126/59 Pulse: 69 Respirations: 20 Pulse Ox (%): 95 - Physical Exam General: Alert, In no apparent distress HEENT: Atraumatic, PERRLA, EOMI Neck: Supple, JVD not distended Respiratory: Clear to auscultation bilaterally, Normal air movement Cardiovascular: Regular rate/rhythm, Normal S1 S2 Gastrointestinal: Normal bowel sounds, No tenderness Musculoskeletal: No tenderness Integumentary: No rashes Neurological: Normal speech, Normal tone, Normal affect Lymphatics: No axilla or inguinal lymphadenopathy - Studies Laboratory Data (last 24 hrs) 04/30/18 12:20: WBC 12.6 H, Hgb 8.9 L, Hct 27.9 L, Plt Count 287 04/30/18 12:20: Sodium 140, Potassium 4.4, BUN 43 H, Creatinine 2.10 H, Glucose 77 Microbiology Data (last 24 hrs): 04/30/18 13:45 Blood - Blood Anaerobic Blood Culture - Final Assessment & Plan - Problems (Diagnosis) (1) Streptococcus pneumoniae Current Visit: Yes Status: Acute Plan: Patient's curb 65 is 2. Which correlates for a 3% mortality. Will start her on fluids. Gently hydration and breathing treatment. Will stop the patient steroids. She is not currently wheezing (2) Diabetes 1.5, managed as type 2 Current Visit: Yes Status: Acute Plan: Elevated sugar today. Possible due to the steroids. Will give her 10 units of regular times one. Restart her home 70/30 novolog. Will hold the patients metformin due to kidney function. Will cover her on the sliding scale. (3) Acute on chronic renal failure Current Visit: Yes Status: Acute Plan: Patients baseline creatine is 1.5, a stage 3. Has not improved. Sometime with elderly patients recover can take some time. Continue iv fluid hydration Qualifiers: Chronic kidney disease stage: stage 4 (severe) (4) CHF (congestive heart failure), NYHA class I Current Visit: Yes Status: Acute Plan: treated by Dr. Maurice. Had a recent outpatient echo. Will hold the beta mai. Restart in the am. Hold the jessica. Continue simvastatin Qualifiers: Congestive heart failure type: unspecified Qualified Code(s): I50.9 - Heart failure, unspecified Discharge Plan: Home Plan to discharge in: 48 Hours - Code Status/Comfort Care Code Status Assessed: No Code Status: Full Code Physician Review: Patient Assessed, Agree with Above Assessment and Plan Critical Care: No Time Spent Managing Pts Care (In Minutes): 20
[2018-05-01] MEDS: HUMALOG MIX 75/25 100 UNITS/ML SQ SCH (13:00)
[2018-05-01] MEDS: Levofloxacin 250mg IV 250 MG/50 ML BAG IV SCH (13:24)
[2018-05-01] MEDS: ENOXAPARIN 30 MG/0.3 ML SQ SCH (17:57)
[2018-05-01] MEDS: ATORVASTATIN 10 MG TAB PO SCH (20:11)
[2018-05-01] MEDS ORDERED: NA CHLORIDE 0.9% 250 ML IV ONE (21:07)
[2018-05-01] MEDS ORDERED: clonazePAM 0.5 MG TAB PO ONE (21:08)
[2018-05-02] MEDS: NA CHLORIDE 0.9% 1,000 ML IV SCH ×4 (03:14→20:32)
[2018-05-02] MEDS: ASPIRIN EC 81 MG TAB PO SCH (08:41)
[2018-05-02] MEDS: AMLODIPINE 10 MG TAB PO SCH (08:41)
[2018-05-02] MEDS: PANTOPRAZOLE 40MG TABLET PO SCH (08:41)
[2018-05-02] MEDS: INSULIN -REGULAR HUMAN 50 UNIT/0.5 ML ML SQ SCH ×4 (08:42→20:31)
[2018-05-02] MEDS: HUMALOG MIX 75/25 100 UNITS/ML SQ SCH (08:43)
--- NOTE | 2018-05-02 10:09 | P.PN ---
Subjective Date of Service: 05/02/18 Primary Care Provider: Alexander Chief Complaint: strep pneumonia Subjective: Improving (sugars are slowly coming down) Review of Systems 10-point ROS is otherwise unremarkable Respiratory: Cough Physical Examination - Vital Signs Temperature: 97.9 F Blood Pressure: 146/63 Pulse: 67 Respirations: 15 Pulse Ox (%): 97 - Physical Exam General: Alert, In no apparent distress HEENT: Atraumatic, PERRLA, EOMI Neck: Supple, JVD not distended Respiratory: Clear to auscultation bilaterally, Normal air movement Cardiovascular: Regular rate/rhythm, Normal S1 S2 Gastrointestinal: Normal bowel sounds, No tenderness Musculoskeletal: No tenderness Integumentary: No rashes Neurological: Normal speech, Normal tone, Normal affect Lymphatics: No axilla or inguinal lymphadenopathy - Studies Microbiology Data (last 24 hrs): 04/30/18 13:45 Blood - Blood Anaerobic Blood Culture - Final Assessment & Plan - Problems (Diagnosis) (1) Streptococcus pneumoniae Current Visit: Yes Status: Acute Plan: Patient's curb 65 is 2. Which correlates for a 3% mortality. Will start her on fluids. Gently hydration and breathing treatment. Will stop the patient steroids. She is not currently wheezing (2) Diabetes 1.5, managed as type 2 Current Visit: Yes Status: Acute Plan: Elevated sugar today. Has improved with fluids and subcutaneous insulin. Possible due to the steroids. . Restart her home 70/30 novolog. (3) Acute on chronic renal failure Current Visit: Yes Status: Acute Plan: Patients baseline creatine is 1.5, a stage 3. Has not improved. Sometime with elderly patients recover can take some time. Continue iv fluid hydration Qualifiers: Chronic kidney disease stage: stage 4 (severe) (4) CHF (congestive heart failure), NYHA class I Current Visit: Yes Status: Acute Plan: treated by Dr. Maurice. Had a recent outpatient echo. Will hold the beta mai. Restart in the am. Hold the jessica. Continue simvastatin Qualifiers: Congestive heart failure type: unspecified Qualified Code(s): I50.9 - Heart failure, unspecified Discharge Plan: Home Plan to discharge in: 24 Hours - Code Status/Comfort Care Code Status Assessed: No Code Status: Full Code Physician Review: Patient Assessed, Agree with Above Assessment and Plan Critical Care: No Time Spent Managing Pts Care (In Minutes): 20
[2018-05-02] MEDS: LEVALBUTEROL 0.63 MG/3 ML NEB NEB PRN ×2 (11:05→20:38)
[2018-05-02] MEDS: IPRATROPIUM BROM 0.5MG/2.5ML NEB PRN ×2 (11:05→20:38)
[2018-05-02 11:48] LABS: Absolute Lymphocytes (CBC) 0.6 K/uL (0.7-4.9); Absolute Monocytes 1.1 K/uL (0.1-1.3); Absolute Neutrophil 12.9 K/uL (1.8-8.0); Hematocrit 26.9 % (36.0-45.0); Lymphocytes % 4.2 % (15.3-44.8); MCH 24.1 pg (27.0-35.0); MCV 77.4 fL (80-100); MPV 9.7 fL (7.6-11.3); Monocytes % 7.4 % (3.3-12.3); RBC Red Blood Cell Count 3.47 M/uL (3.86-4.86)
[2018-05-02 12:01] LABS: Potassium 4.3 mmol/L (3.5-5.1)
[2018-05-02 12:53] LABS: Blood Morphology Comment NOT SEEN (NOT SEEN); Platelet Estimate ADEQ
[2018-05-02] MEDS: Levofloxacin 250mg IV 250 MG/50 ML BAG IV SCH (13:52)
[2018-05-02] MEDS: ENOXAPARIN 30 MG/0.3 ML SQ SCH (16:47)
[2018-05-02] MEDS ORDERED: ASPART SQ SCH (18:00)
[2018-05-02] MEDS ORDERED: INSULIN ASPART PROTAM SQ SCH (18:00)
[2018-05-02] MEDS ORDERED: [UNRECOGNIZED DRUG - OTHER] SQ SCH (18:00)
[2018-05-02] MEDS: ATORVASTATIN 10 MG TAB PO SCH (20:32)
[2018-05-03] MEDS: NA CHLORIDE 0.9% 1,000 ML IV SCH ×3 (06:25→17:39)
[2018-05-03] MEDS: ASPIRIN EC 81 MG TAB PO SCH (08:36)
[2018-05-03] MEDS: AMLODIPINE 10 MG TAB PO SCH (08:36)
[2018-05-03] MEDS: PANTOPRAZOLE 40MG TABLET PO SCH (08:37)
[2018-05-03] MEDS: INSULIN -REGULAR HUMAN 50 UNIT/0.5 ML ML SQ SCH ×4 (08:38→21:07)
[2018-05-03] MEDS: HUMALOG MIX 75/25 100 UNITS/ML SQ SCH (08:39)
[2018-05-03 13:03] LABS: Albumin 2.2 g/dL (3.4-5.0); Bilirubin Total 0.2 mg/dL (0.2-1.0); Potassium 4.2 mmol/L (3.5-5.1); Protein, Total 5.8 g/dL (6.4-8.2)
--- NOTE | 2018-05-03 14:23 | P.PN ---
Subjective Date of Service: 05/03/18 Primary Care Provider: Alexander Chief Complaint: strep pneumonia Subjective: No new changes Review of Systems 10-point ROS is otherwise unremarkable Physical Examination - Vital Signs Temperature: 97.8 F Blood Pressure: 140/67 Pulse: 82 Respirations: 16 Pulse Ox (%): 95 - Physical Exam General: Alert, In no apparent distress HEENT: Atraumatic, PERRLA, EOMI Neck: Supple, JVD not distended Respiratory: Clear to auscultation bilaterally, Normal air movement Cardiovascular: Regular rate/rhythm, Normal S1 S2 Gastrointestinal: Normal bowel sounds, No tenderness Musculoskeletal: No tenderness Integumentary: No rashes Neurological: Normal speech, Normal tone, Normal affect Lymphatics: No axilla or inguinal lymphadenopathy Assessment & Plan - Problems (Diagnosis) (1) Streptococcus pneumoniae Onset Date: 05/03/18 Current Visit: Yes Status: Acute Plan: Patient's curb 65 is 2. Which correlates for a 3% mortality. Will start her on fluids. Gently hydration and breathing treatment. Will stop the patient steroids. She is not currently wheezing (2) Diabetes 1.5, managed as type 2 Onset Date: 05/03/18 Current Visit: Yes Status: Acute Plan: Elevated sugar today. Has improved with fluids and subcutaneous insulin. Possible due to the steroids. . Restart her home 70/30 novolog. (3) Acute on chronic renal failure Onset Date: 05/03/18 Current Visit: Yes Status: Acute Plan: Patients baseline creatine is 1.5, a stage 3. some improvement creatine has gone to 1.9. Would like to see her a little closer to baseline before discharge. Will recheck in the am. Qualifiers: Chronic kidney disease stage: stage 4 (severe) (4) CHF (congestive heart failure), NYHA class I Onset Date: 05/03/18 Current Visit: Yes Status: Acute Plan: treated by Dr. Maurice. Had a recent outpatient echo. Will hold the beta mai. Restart in the am. Hold the jessica. Continue simvastatin Qualifiers: Congestive heart failure type: unspecified Qualified Code(s): I50.9 - Heart failure, unspecified Discharge Plan: Home Plan to discharge in: 24 Hours - Code Status/Comfort Care Code Status Assessed: No Code Status: Full Code Physician Review: Patient Assessed, Agree with Above Assessment and Plan Critical Care: No Time Spent Managing Pts Care (In Minutes): 25
[2018-05-03] MEDS: Levofloxacin 250mg IV 250 MG/50 ML BAG IV SCH (14:57)
[2018-05-03] MEDS: ENOXAPARIN 30 MG/0.3 ML SQ SCH (17:39)
[2018-05-03] MEDS: ACETAMINOPHEN 500 MG TAB PO PRN ×2 (17:39→23:09)
[2018-05-03] MEDS: ATORVASTATIN 10 MG TAB PO SCH (20:25)
[2018-05-04 06:25] LABS: Potassium 4.4 mmol/L (3.5-5.1)
[2018-05-04] MEDS: NA CHLORIDE 0.9% 1,000 ML IV SCH (06:38)
[2018-05-04] MEDS: ASPIRIN EC 81 MG TAB PO SCH (08:37)
[2018-05-04] MEDS: PANTOPRAZOLE 40MG TABLET PO SCH (08:37)
[2018-05-04] MEDS: AMLODIPINE 10 MG TAB PO SCH (08:37)
[2018-05-04] MEDS: INSULIN -REGULAR HUMAN 50 UNIT/0.5 ML ML SQ SCH ×2 (08:38→11:59)
[2018-05-04] MEDS: HUMALOG MIX 75/25 100 UNITS/ML SQ SCH (08:39)
[2018-05-04 08:41] VITALS: BP 175/80
--- NOTE | 2018-05-04 09:13 | P.DS ---
Admission Date: 04/30/18 Discharge Date: 05/04/18 Primary Care Provider: Alexander Disposition: ROUTINE DISCHARGE Discharge Condition: FAIR Reason for Admission: strep pneumonia - Problems (1) Streptococcus pneumoniae Onset Date: 05/03/18 Current Visit: Yes Status: Acute (2) Diabetes 1.5, managed as type 2 Onset Date: 05/03/18 Current Visit: Yes Status: Acute (3) Acute on chronic renal failure Onset Date: 05/03/18 Current Visit: Yes Status: Acute Qualifiers: Chronic kidney disease stage: stage 4 (severe) (4) CHF (congestive heart failure), NYHA class I Onset Date: 05/03/18 Current Visit: Yes Status: Acute Qualifiers: Congestive heart failure type: unspecified Qualified Code(s): I50.9 - Heart failure, unspecified Brief History of Present Illness: Patient is an office patient of [employer]. History of heart disease for which she see's Dr. Maurice in [place]. Diabetes, htn and ckd. She has been having a cough on and off for 3 months. Has been to the office. States she has not been eating very well, been getting weaker. The patient came to the ER. She was found to have worsening bilateral basilar infiltrates. She had elevated creatine and BUN. She had stable vitals. However based on her advanced age decided to bring her in for iv antibiotics. Hospital Course: Patient was admitted and started on iv fluids and antibiotics. She recovered well from a breathing/pneumonia standpoint. However was a little slower to recover from the renal standpoint. She is nearly at her baseline creatine of 1.5(was 1.6 this morning). Blood pressure was elevated today. However may improve at home. Will have her follow up in a week. If no improvement we can adjust her medications at that time. Vital Signs/Physical Exam: Temp Pulse Resp BP Pulse Ox 97.6 F 89 18 175/80 H 93 05/04/18 04:00 05/04/18 08:37 05/04/18 04:00 05/04/18 08:37 05/04/18 04:00 General: Alert, In no apparent distress HEENT: Atraumatic, PERRLA, EOMI Neck: Supple, JVD not distended Respiratory: Clear to auscultation bilaterally, Normal air movement Cardiovascular: Regular rate/rhythm, Normal S1 S2 Gastrointestinal: Normal bowel sounds, No tenderness Musculoskeletal: No tenderness Integumentary: No rashes Neurological: Normal speech, Normal tone, Normal affect Lymphatics: No axilla or inguinal lymphadenopathy Laboratory Data at Discharge: WBC 14.6 K/uL (4.3-10.9) H D 05/02/18 11:34 Hgb 8.4 g/dL (12.0-15.0) L 05/02/18 11:34 Hct 26.9 % (36.0-45.0) L 05/02/18 11:34 Plt Count 324 K/uL (152-406) 05/02/18 11:34 Sodium 143 mmol/L (136-145) 05/04/18 05:45 Potassium 4.4 mmol/L (3.5-5.1) 05/04/18 05:45 BUN 24 mg/dL (7-18) H 05/04/18 05:45 Creatinine 1.60 mg/dL (0.55-1.3) H 05/04/18 05:45 Glucose 242 mg/dL (74-106) H 05/04/18 05:45 Total Bilirubin 0.2 mg/dL (0.2-1.0) 05/03/18 12:38 AST 15 U/L (15-37) 05/03/18 12:38 ALT 11 U/L (12-78) L 05/03/18 12:38 Alkaline Phosphatase 62 U/L (45-117) 05/03/18 12:38 Home Medications: Alendronate Sodium 70 mg PO Q7D 04/30/18 Amlodipine Besylate 10 mg PO DAILY 04/30/18 Benazepril HCl 20 mg PO DAILY 04/30/18 Carvedilol 12.5 mg PO BIDWM 04/30/18 Furosemide 40 mg PO DAILY 04/30/18 Insulin Aspart Protam & Aspart [Novolog Mix 70-30 Flexpen Syrn] 10 unit SQ DAILY 04/30/18 Megestrol [Megace*] 800 mg PO DAILY 04/30/18 Metformin HCl 1,000 mg PO BIDWM 04/30/18 Simvastatin 20 mg PO BEDTIME 04/30/18 Albuterol Sulfate [Proair Hfa] 8.5 gm IH Q6HP PRN #1 hfa.aer.ad 05/04/18 Levofloxacin [Levaquin] 500 mg PO DAILY #7 tablet 05/04/18 New Medications: Albuterol Sulfate [Proair Hfa] 8.5 gm IH Q6HP PRN #1 hfa.aer.ad PRN Reason: Shortness Of Breath Levofloxacin [Levaquin] 500 mg PO DAILY #7 tablet Diet: ADA Followup: Andrew Munoz MD [Primary Care Provider] - Time spent managing pt's care (in minutes): 45
[2018-05-04 10:50] VITALS: TEMP 98.9
[2018-05-04] MEDS: IPRATROPIUM BROM 0.5MG/2.5ML NEB PRN (11:45)
[2018-05-04] MEDS: LEVALBUTEROL 0.63 MG/3 ML NEB NEB PRN (11:45)
[2018-05-04 12:07] VITALS: O2SAT 93
== END 2018-05-04 12:19 | disposition home or self-care (01) | DRG 194 ==
LOC: ER 11:03 → ERHOLD 13:54 → 2ND 15:04
PROVIDERS: ADMIT Internal Medicine; ATTEND Internal Medicine
DX: J13 Pneumonia due to Streptococcus pneumoniae (principal); N18.4 Chronic kidney disease, stage 4 (severe); N17.9 Acute kidney failure, unspecified; I13.0 Hypertensive heart and chronic kidney disease with heart failure and stage 1 through stage 4 chronic kidney disease, or unspecified chronic kidney disease; Z79.4 Long term (current) use of insulin; E78.5 Hyperlipidemia, unspecified; I50.9 Heart failure, unspecified; E11.22 Type 2 diabetes mellitus with diabetic chronic kidney disease
CPT/HCPCS: 36415; 70450; 71046; 80048; 80053; 82962; 83880; 85025; 87040; 87070; 87205; 94760; 96365; 96375; 97163; 99285; J1650; J2920; J2930; J7030

== ENCOUNTER 2018-10-06 01:57 | Inpatient (IN) | payer OTHER ==
--- OUTSIDE RECORDS SUMMARY | 2018-10-06 01:58 | XMS REPORT ---
:1935 [facility] [address] [place] [address] Care Team Providers Name Role Phone Unavailable Unavailable Unavailable Problems This patient has no known problems. Allergies, Adverse Reactions, Alerts This patient has no known allergies or adverse reactions. Medications This patient has no known medications.
--- OUTSIDE RECORDS SUMMARY | 2018-10-06 01:59 | XMS REPORT ---
:1935 Author Organization [employer] Care Team Providers Name Role Phone Andrew Munoz Provider Role Unavailable Allergies No Known Allergies Problems Problem Type Condition Code Onset Dates Condition Status Problem Bilateral hearing loss, unspecified H91.93 Active hearing loss type Problem Type 2 diabetes mellitus without E11.9 Active complication, unspecified whether care home insulin use Problem Essential (primary) hypertension I10 Active Problem Stage 3 chronic kidney disease N18.3 Active Problem Hyperlipidemia, unspecified E78.5 Active hyperlipidemia type Problem Cardiac arrhythmia, unspecified I49.9 Active cardiac arrhythmia type Problem Atherosclerotic heart disease of I25.10 Active [place] coronary artery without angina pectoris Problem Chronic diastolic (congestive) heart I50.32 Active failure Medications Medication Code Code Instructions Start End Date Status Dosage System Date Ventolin HFA [facility] 25726912965 108 (90 Base) Apr 13, Active 2 puffs as MCG/ACT 2018 needed Inhalation every 6 hrs Results No Known Results Summary Purpose [employer]ClinicalSpot[employer] Submission
--- OUTSIDE RECORDS SUMMARY | 2018-10-06 01:59 | XMS REPORT ---
:1935 [facility] Team Providers Name Role Phone Andrew [...] mellitus without E11.9 Active complication, unspecified whether [place] insulin use Problem Essential (primary) hypertension I10 Active Problem Stage 3 chronic kidney disease N18.3 Active Problem Hyperlipidemia, unspecified E78.5 Active hyperlipidemia type Problem Cardiac arrhythmia, unspecified I49.9 Active cardiac arrhythmia type Problem Atherosclerotic heart disease of I25.10 Active [place] coronary artery without angina pectoris Problem Chronic diastolic (congestive) heart I50.32 Active failure Medications Medication Code Code Instructions Start End Status Dosage System Date Date Loratadine [facility] 06628615044 10 MG Orally Feb 09, Apr 10, Active 1 capsule Once a day 2017 2017 Carvedilol [facility] 92333451518 12.5 MG Orally Active as directed twice a day Albuterol [facility] [address]-15 108 (90 Base) Active 2 puffs as Sulfate HFA MCG/ACT needed Inhalation every 6 hrs Benazepril HCl [facility] 18108556796 20 MG Orally Active 1 tablet Once a day Fluticasone [facility] 11562156723 50 MCG/ACT Feb 09, Active 1 spray in Propionate Nasally Once a 2018 each day nostril NovoLog Mix [facility] 87425461464 (70-30) 100 Active 10 units 70/30 Flexpen UNIT/ML Subcutaneous once a day Metformin HCl [facility] 39102713268 1000 MG Orally Active 1 tablet Twice a day with a meal Amlodipine [facility] 25551367890 10 MG Orally Active 1 tablet Besylate Once a day Alendronate [facility] 94718342913 70 MG Orally Active 1 tablet Sodium every week Potassium [facility] 27602043692 - Active as directed Chloride Simvastatin [facility] 19812456607 20 MG Orally Active 1 tablet in Once a day the evening ProAir HFA [facility] 78994640766 108 (90 Base) Mar 31, Active 2 puffs as MCG/ACT 2018 needed Inhalation every 6 hrs Megestrol [facility] 38976441608 40 MG/ML Orally Active 20 ml Acetate Once a day Lasix [facility] 67271065921 20 MG Orally Active 1 tablet Once a day Results No Known Results Summary Purpose eClinicalWorks Submission
--- OUTSIDE RECORDS SUMMARY | 2018-10-06 01:59 | XMS REPORT ---
[...] Problem Atherosclerotic heart disease of I25.10 Active [place] coronary artery without angina pectoris Problem Chronic diastolic (congestive) heart I50.32 Active failure Problem Essential (primary) hypertension I10 Active Problem Bilateral hearing loss, unspecified H91.93 Active hearing loss type Problem Type 2 diabetes mellitus without E11.9 Active complication, unspecified whether group home insulin use Problem Hyperlipidemia, unspecified E78.5 Active hyperlipidemia type Problem Cardiac arrhythmia, unspecified I49.9 Active cardiac arrhythmia type Assessment Essential (primary) hypertension I10 Active Assessment Type 2 diabetes mellitus without E11.9 Active complication, unspecified whether group home insulin use Assessment Bilateral hearing loss, unspecified H91.93 Active hearing loss type Assessment Hyperlipidemia, unspecified E78.5 Active hyperlipidemia type Assessment Abnormal kidney function N28.9 Active Assessment Atherosclerotic heart disease of I25.10 Active [place] coronary artery without angina pectoris Medications Medication Code Code Instructions Start End Status Dosage System Date Date Metformin HCl [facility] [address]-61 1000 MG Orally Active 1 tablet Twice a day with a meal Carvedilol [facility] [address]-36 12.5 MG Orally Active as directed twice a day NovoLog Mix [facility] [address]-54 (70-30) 100 Active 10 units 70/30 Flexpen UNIT/ML Subcutaneous once a day Fluticasone [facility] 37111954790 50 MCG/ACT Feb 09, Active 1 spray in Propionate Nasally Once a 2018 each day nostril Benazepril HCl [facility] 98925951302 20 MG Orally Active 1 tablet Once a day Amlodipine ND 19047524857 10 MG Orally Active 1 tablet Besylate Once a day Simvastatin [facility] 33724302193 20 MG Orally Active 1 tablet in Once a day the evening Megestrol [facility] [address]-23 40 MG/ML Orally Active 20 ml Acetate Once a day Loratadine [facility] 82079018875 10 MG Orally Feb 09, Apr 10, Active 1 capsule Once a day 2017 2017 Alendronate [facility] 31231826735 70 MG Orally Active 1 tablet Sodium every week Results No Known Results Summary Purpose eClinicalWorks Submission
--- OUTSIDE RECORDS SUMMARY | 2018-10-06 01:59 | XMS REPORT ---
:1935 Author Organization [employer] Care Team Providers Name Role Phone Andrew Munoz Provider Role Unavailable Allergies, Adverse Reactions, Alerts Substance Reaction Event Type N.K.D.A. Info Not Available Non Drug Allergy Problems Problem Type Condition Code Onset Dates Condition Status Assessment Type 2 diabetes mellitus without E11.9 Active complication, unspecified whether retirement insulin use Problem Bilateral hearing loss, unspecified H91.93 Active hearing loss type Assessment Respiratory infection J98.8 Active Assessment Chronic diastolic (congestive) heart I50.32 Active failure Problem Type 2 diabetes mellitus without E11.9 Active complication, unspecified whether [place] [employer] insulin use Problem Essential (primary) hypertension I10 [...] Start End Status Dosage System Date Date Fluticasone ND 91764450906 50 MCG/ACT Feb 09, Active 1 spray in Propionate Nasally Once a 2017 each day nostril Simvastatin ND 63037754029 20 MG Orally Active 1 tablet in Once a day the evening Potassium ND 44683976861 - Active as directed Chloride Albuterol ND 42722873439 108 (90 Base) Active 2 puffs as Sulfate HFA MCG/ACT needed Inhalation every 6 hrs Carvedilol ND 48249387288 12.5 MG Orally Active as directed twice a day Megestrol ND 02533565427 40 MG/ML Orally Active 20 ml Acetate Once a day Metformin HCl ND 89020765164 1000 MG Orally Active 1 tablet Twice a day with a meal Ventolin HFA [facility] 04141424922 108 (90 Base) Apr 13, Active 2 puffs as MCG/ACT 2018 needed Inhalation every 6 hrs Fluticasone ND 72342518737 50 MCG/ACT Jun 11, Active 1 spray in Propionate Nasally Once a 2018 each day nostril Lasix [facility] 75043220052 20 MG Orally Active 1 tablet Once a day Amlodipine [facility] 73896648009 10 MG Orally Active 1 tablet Besylate Once a day Alendronate [facility] 37761395160 70 MG Orally Active 1 tablet Sodium every week Benazepril HCl [facility] 55086555425 20 MG Orally Active 1 tablet Once a day NovoLog Mix [facility] 54878561347 (70-30) 100 Active 10 units 70/30 Flexpen UNIT/ML Subcutaneous once a day Results No Known Results Summary Purpose eClinicalWorks Submission
[2018-10-06] MEDS ORDERED: NA CHLORIDE 0.9% 1,000 ML ONE (02:41)
[2018-10-06 02:44] LABS: Absolute Lymphocytes (CBC) 0.9 K/uL (0.7-4.9); Absolute Monocytes 0.7 K/uL (0.1-1.3); Absolute Neutrophil 9.2 K/uL (1.8-8.0); Basophils % 0.9 % (0-1.3); Eosinophils % 2.5 % (0-4.4); Hematocrit 28.2 % (36.0-45.0); Lymphocytes % 8.5 % (15.3-44.8); MPV 11.2 fL (7.6-11.3)
[2018-10-06 02:46] LABS: Protime INR 0.92
[2018-10-06] MEDS ORDERED: IPRATROPIUM BROM 0.5MG/2.5ML ONE ×2 (02:58→07:53)
[2018-10-06] MEDS ORDERED: METHYLPREDNISOLONE 125 MG INJ ONE (02:58)
[2018-10-06] MEDS ORDERED: Levofloxacin500mg IV 500 MG/100 ML BAG IV ONE (02:59)
[2018-10-06] MEDS ORDERED: LEVALBUTEROL 1.25 MG/3 ML NEB ONE (02:59)
[2018-10-06] MEDS ORDERED: MORPHINE 2 MG/ML SYR ONE (03:00)
[2018-10-06] MEDS ORDERED: ONDANSETRON 4 MG/2 ML VIAL ONE (03:01)
[2018-10-06 03:03] LABS: AST/SGOT 8 U/L (15-37); Albumin 2.6 g/dL (3.4-5.0); Alkaline Phosphatase 70 U/L (45-117); BUN Blood Urea Nitrogen 26 mg/dL (7-18); Bicarbonate 26 mmol/L (21-32); Bilirubin Direct < 0.1 mg/dL (0-0.2); Bilirubin Total 0.3 mg/dL (0.2-1.0); Glucose Level 242 mg/dL (74-106); Magnesium 1.7 mg/dL (1.8-2.4); NT PRO-BNP 8024 pg/mL (<450); Protein, Total 6.5 g/dL (6.4-8.2); Sodium Level 143 mmol/L (136-145); Troponin (Emerg Dept Use Only) < 0.02 ng/mL (0.0-0.045)
[2018-10-06 03:17] LABS: ALT/SGPT < 6 U/L (12-78)
--- NOTE | 2018-10-06 03:44 | EDPHYS ---
Physician Documentation [facility] Name: Dahlia Reyes Age: 83 yrs Sex: Female : 1935 Arrival Date: 10/06/2018 Time: 01:58 Bed 14 Private MD: ED Physician Vern Arias HPI: 10/06 02:38 This 83 yrs old Female presents to ER via EMS with complaints of Chest Pain. [facility] 02:38 The patient or guardian reports chest pain that is located primarily in the anterior nanci chest wall, left upper back. Onset: just prior to arrival, this morning. The pain does not radiate. Associated signs and symptoms: The patient has no apparent associated signs or symptoms. The chest pain is described as sharp. Severity of pain: At its worst the pain was mild in the emergency department the pain is unchanged. Historical: - Allergies: 02:05 No Known Allergies; rr5 - Home Meds: 02:05 Simvastatin Oral [Active]; alendronate Oral [Active]; carvedilol Oral [Active]; rr5 amlodipine oral [Active]; Insulin: Regular Sub-Q [Active]; Metformin Oral [Active]; benazepril Oral [Active]; Megestrol Acetate Oral [Active]; - PMHx: 02:05 COPD; Diabetes - NIDDM; Hypertension; High Cholesterol; rr5 - PSHx: 02:05 Knee surgery; eye surgery; Hysterectomy; Tonsillectomy; ear surgery; rr5 - Immunization history:: Adult Immunizations up to date, Flu vaccine is up to date. - Social history:: Smoking status: . - Ebola Screening: : Patient negative for fever greater than or equal to 101.5 degrees Fahrenheit, and additional compatible Ebola Virus Disease symptoms Patient denies exposure to infectious person Patient denies travel to an Ebola-affected area in the 21 days before illness onset. - Family history:: not pertinent. ROS: 02:38 Constitutional: Negative for fever, chills, and weight loss, Eyes: Negative for injury, nanci pain, redness, and discharge, ENT: Negative for injury, pain, and discharge, Neck: Negative for injury, pain, and swelling, Cardiovascular: Negative for chest pain, palpitations, and edema, Abdomen/GI: Negative for abdominal pain, nausea, vomiting, diarrhea, and constipation, Back: Negative for injury and pain, : Negative for injury, bleeding, discharge, and swelling, MS/Extremity: Negative for injury and deformity, Skin: Negative for injury, rash, and discoloration, Neuro: Negative for headache, weakness, numbness, tingling, and seizure. 02:38 Respiratory: Positive for cough, shortness of breath, wheezing, inspiratory, expiratory. 02:38 MS/extremity: Negative for acute changes, injury or acute deformity. Exam: 02:38 Constitutional: This is a well developed, well nourished patient who is awake, alert, nanci and in no acute distress. Head/Face: Normocephalic, atraumatic. Eyes: Pupils equal round and reactive to light, extra-ocular motions intact. Lids and lashes normal. Conjunctiva and sclera are non-icteric and not injected. Cornea within normal limits. Periorbital areas with no swelling, redness, or edema. ENT: Nares patent. No nasal discharge, no septal abnormalities noted. Tympanic membranes are normal and external auditory canals are clear. Oropharynx with no redness, swelling, or masses, exudates, or evidence of obstruction, uvula midline. Mucous membranes moist. Neck: Trachea midline, no thyromegaly or masses palpated, and no cervical lymphadenopathy. Supple, full range of motion without nuchal rigidity, or vertebral point tenderness. No Meningismus. Chest/axilla: Normal chest wall appearance and motion. Nontender with no deformity. No lesions are appreciated. Cardiovascular: Regular rate and rhythm with a normal S1 and S2. No gallops, murmurs, or rubs. Normal PMI, no JVD. No pulse deficits. Back: No spinal tenderness. No costovertebral tenderness. Full range of motion. Skin: Warm, dry with normal turgor. Normal color with no rashes, no lesions, and no evidence of cellulitis. 02:38 Respiratory: mild respiratory distress is noted, Respirations: labored breathing, that is mild, Breath sounds: bronchial sounds, rhonchi, wheezing: inspiratory expiratory Vital Signs: 02:00 BP 158 / 116; Pulse 67; Resp 28; Temp 98.5; Pulse Ox 100% ; Weight 50.8 kg; Height 5 rr5 ft. (152.40 cm); Pain 8/10; 03:00 BP 137 / 62; Pulse 62; Resp 22; Pulse Ox 98% ; rr5 03:48 BP 144 / 59; Pulse 63; Resp 22; Pulse Ox 98% ; rr5 04:47 BP 149 / 60; Pulse 62; Resp 23; Pulse Ox 98% ; rr5 05:20 BP 158 / 108; Pulse 69; Resp 21; Pulse Ox 100% ; Pain 3/10; rr5 02:00 Body Mass Index 21.87 (50.80 kg, 152.40 cm) rr5 MDM: 02:06 Patient medically screened. [facility] 02:42 Data reviewed: vital signs, nurses notes, lab test result(s), EKG, radiologic studies, nanci plain films. 10/06 02:14 Order name: Basic Metabolic Panel [facility] 10/06 02:14 Order name: CBC with Diff; Complete Time: 03:29 mg2 10/06 02:14 Order name: LFT's; Complete Time: 03:29 mg2 10/06 02:14 Order name: Magnesium; Complete Time: 03:29 mg2 10/06 02:14 Order name: NT PRO-BNP [facility] 10/06 02:14 Order name: PT-INR; Complete Time: 03:29 mg2 10/06 02:14 Order name: Troponin (emerg Dept Use Only); Complete Time: 03:29 mg2 10/06 02:15 Order name: Blood Culture Adult (2) [facility] 10/06 02:15 Order name: Procalcitonin; Complete Time: 03:29 nanci 10/06 02:15 Order name: Influenza Screen (a \T\ B); Complete Time: 03:29 nanci 10/06 02:15 Order name: Urine Culture [facility] 10/06 02:15 Order name: Basic Metabolic Panel; Complete Time: 03:29 EDMS 10/06 02:15 Order name: NT PRO-BNP; Complete Time: 03:29 EDMS 10/06 03:30 Order name: Type And Screen [facility] 10/06 05:14 Order name: ABO/RH no charge [facility] 10/06 06:14 Order name: CBC with Automated Diff [facility] 10/06 06:14 Order name: CBC with Automated Diff EDMS 10/06 06:14 Order name: Comprehensive Metabolic Panel [facility] 10/06 06:14 Order name: Comprehensive Metabolic Panel [facility] 10/06 06:14 Order name: Lipid Profile [facility] 10/06 06:14 Order name: Lipid Profile [facility] 10/06 06:14 Order name: Magnesium [facility] 10/06 06:14 Order name: Magnesium [facility] 10/06 02:14 Order name: EKG; Complete Time: 02:16 mg2 10/06 02:15 Order name: XRAY Chest (1 view) [facility] 10/06 02:15 Order name: EKG; Complete Time: 02:16 nanci 10/06 03:41 Order name: CT Chest Wo Con [facility] 10/06 06:14 Order name: Heart Healthy [facility] 10/06 06:14 Order name: Phosphorus [facility] 10/06 06:14 Order name: Phosphorus [facility] 10/06 06:14 Order name: NT PRO-BNP [facility] 10/06 06:14 Order name: NT PRO-BNP [facility] 10/06 06:14 Order name: Troponin I [facility] 10/06 06:14 Order name: Troponin I [facility] 10/06 06:14 Order name: Troponin I [facility] 10/06 07:46 Order name: Urine Dipstick--Ancillary (enter results) 10/06 08:03 Order name: Urine Dipstick-Ancillary [facility] 10/06 02:14 Order name: O2 Sat Monitoring; Complete Time: 02:37 mg2 10/06 02:15 Order name: Cardiac monitoring; Complete Time: 02:36 nanci 10/06 02:15 Order name: EKG - Nurse/Tech; Complete Time: 02:37 nanci 10/06 02:15 Order name: IV Saline Lock; Complete Time: 02:37 nanci 10/06 02:15 Order name: Labs collected and sent; Complete Time: 02:37 nanci 10/06 02:15 Order name: O2 Per Protocol; Complete Time: 02:37 nanci 10/06 02:15 Order name: O2 Sat Monitoring; Complete Time: 02:37 nanci 10/06 02:15 Order name: Urine Dipstick-Ancillary (obtain specimen); Complete Time: 04:50 nanci Administered Medications: 02:44 Drug: NS 0.9% 1000 ml Route: IV; Rate: 125 ml/hr; Site: right antecubital; bb 06:55 Follow up: Response: No adverse reaction; IV Status: Infusion continued upon admission; rr5 IV Intake: 500ml 02:54 Not Given (Physician Discretion): fentaNYL (PF) 25 mcg IVP once mg2 02:54 Drug: Zofran 4 mg Route: IVP; Site: right antecubital; mg2 06:53 Follow up: Response: No adverse reaction rr5 02:54 Drug: morphine 2 mg Route: IVP; Site: right antecubital; mg2 06:53 Follow up: Response: No adverse reaction rr5 02:55 Drug: levofloxacin 500 mg Volume: 100 ml; Route: IVPB; Infused Over: 60 mins; Site: mg2 right antecubital; 03:45 Follow up: Response: No adverse reaction; IV Status: Completed infusion; IV Intake: rr5 100ml 02:55 Drug: Xopenex 3.75 mg Route: Inhalation; mg2 06:54 Follow up: Response: No adverse reaction rr5 02:55 Drug: AtroVENT Aerosol 0.5 mg Route: Inhalation; mg2 06:54 Follow up: Response: No adverse reaction rr5 02:56 Drug: SOLU-Medrol 2 mg/kg Route: IVP; Site: right antecubital; mg2 06:55 Follow up: Response: No adverse reaction rr5 03:45 Drug: Pepcid 20 mg Route: IVP; Site: right antecubital; rr5 06:52 Follow up: Response: No adverse reaction rr5 03:46 Dru grams of (Magnesium Sulfate 1 grams, NS 0.9% 100 ml) Route: IVPB; Infused Over: rr5 1 hrs; Site: right antecubital; 04:45 Follow up: Response: No adverse reaction; IV Status: Completed infusion; IV Intake: rr5 100ml 04:00 Drug: Lasix 20 mg Route: IVP; Site: right antecubital; rr5 06:52 Follow up: Response: No adverse reaction rr5 05:05 Drug: Rocephin 1 grams - ((cefTRIAXone) 1 grams, NS 0.9% 50 ml) Route: IVPB; Infused rr5 Over: 30 mins; Site: right antecubital; 05:35 Follow up: Response: No adverse reaction; IV Status: Completed infusion; IV Intake: [id number] Disposition: 10/06/18 03:43 Hospitalization ordered by Cole Arshad for Inpatient Admission. Preliminary diagnosis are Dyspnea, Pneumonia due to other specified bacteria, Anemia, unspecified, Unspecified kidney failure, Unspecified combined systolic (congestive) and diastolic (congestive) heart failure, Hypomagnesemia. - Bed requested for Telemetry/Medrg (Inpatient). - Status is Inpatient Admission. ph - Condition is Fair. - Problem is new. - Symptoms have improved. UTI on Admission? No Signatures: Dispatcher [employer] [facility] Mamta Mansfield Corey, MD MD cha Ballard, Brenda, RN RN bb Rosemary Gamino RN RN ph Temo Johns RN RN mg2 Zain Lopes RN RN rr5 Marisol Rasmussen [facility] Corrections: (The following items were deleted from the chart) 02:35 02:16 Chest Single View+RAD.RAD.BRZ ordered. [facility] EDOR 02:37 02:14 Cardiac monitoring ordered. mg2 rr5 02:38 02:14 EKG - Nurse/Tech ordered. mg2 rr5 02:38 02:14 IV Saline Lock ordered. mg2 rr5 02:39 02:14 Labs collected and sent ordered. mg2 rr5 02:39 02:14 Oxygen Per Protocol ordered. [facility] rr5 02:48 02:16 BASIC METABOLIC PANEL+C.LAB.BRZ ordered. [facility] EDOR 02:48 02:16 CBC+H.LAB.BRZ ordered. [facility] EDOR 02:48 02:16 HEPATIC FUNCTION+C.LAB.BRZ ordered. [facility] EDOR 02:48 02:16 MAGNESIUM+C.LAB.BRZ ordered. [facility] EDOR 02:48 02:16 PROBNP+C.LAB.BRZ ordered. [facility] 02:48 02:16 PROTIME (+INR)+COAG.LAB.BRZ ordered. [facility] EDOR 02:48 02:16 TROPONIN (EMERG DEPT USE ONLY)+C.LAB.BRZ ordered. [facility] EDOR 04:34 03:43 Hospitalization Ordered by Cole Arshad MD for Inpatient Admission. Preliminary nanci diagnosis is Dyspnea; Pneumonia due to other specified bacteria; Anemia, unspecified; Unspecified kidney failure; Unspecified combined systolic (congestive) and diastolic (congestive) heart failure. Bed requested for Telemetry/MedSurg (Inpatient). Status is Inpatient Admission. Condition is Fair. Problem is new. Symptoms have improved. UTI on Admission? No. nanci 05:22 04:34 10/06/2018 03:43 Hospitalization Ordered by Cole Arshad MD for Inpatient ar5 Admission. Preliminary diagnosis is Dyspnea; Pneumonia due to other specified bacteria; Anemia, unspecified; Unspecified kidney failure; Unspecified combined systolic (congestive) and diastolic (congestive) heart failure; Hypomagnesemia. Bed requested for Telemetry/MedSurg (Inpatient). Status is Inpatient Admission. Condition is Fair. Problem is new. Symptoms have improved. UTI on Admission? No. nanci 10:47 05:22 10/06/2018 03:43 Hospitalization Ordered by Cole Arshad MD for Inpatient bd Admission. Preliminary diagnosis is Dyspnea; Pneumonia due to other specified bacteria; Anemia, unspecified; Unspecified kidney failure; Unspecified combined systolic (congestive) and diastolic (congestive) heart failure; Hypomagnesemia. Bed requested for [facility] ER HOLD. Status is Inpatient Admission. Condition is Fair. Problem is new. Symptoms have improved. UTI on Admission? No. ar5 11:52 10:47 10/06/2018 03:43 Hospitalization Ordered by Cole Arshad MD for Inpatient ph Admission. Preliminary diagnosis is Dyspnea; Pneumonia due to other specified bacteria; Anemia, unspecified; Unspecified kidney failure; Unspecified combined systolic (congestive) and diastolic (congestive) heart failure; Hypomagnesemia. Bed requested for Telemetry/MedSurg (Inpatient). Status is Inpatient Admission. Condition is Fair. Problem is new. Symptoms have improved. UTI on Admission? No. bd
--- NOTE | 2018-10-06 03:44 | ER ---
Nurse's Notes [facility] Name: Dahlia Reyes Age: 83 yrs Sex: Female : 1935 Arrival Date: 10/06/2018 Time: 01:58 Bed 14 Private MD: Diagnosis: Dyspnea;Pneumonia due to other specified bacteria;Anemia, unspecified;Unspecified kidney failure;Unspecified combined systolic (congestive) and diastolic (congestive) heart failure;Hypomagnesemia Presentation: 10/06 02:00 Presenting complaint: EMS states: left sided chest pain. upper back pain started rr5 evening but resolved already. having unproductive cough. sinus rhythm with artifacts in ECG. Glucose 246mg/dl, T 99.1 F. gurgling sound at left lower lobe. 02:00 Transition of care: patient was not received from another setting of care. Onset of rr5 symptoms was October 05, 2018. Risk Assessment: Do you want to hurt yourself or someone else? Patient reports no desire to harm self or others. Care prior to arrival: None. 02:00 Method Of Arrival: EMS: [facility] rr5 02:00 Acuity: NOE 3 rr5 Historical: - Allergies: 02:05 No Known Allergies; rr5 - Home Meds: 02:05 Simvastatin Oral [Active]; alendronate Oral [Active]; carvedilol Oral [Active]; rr5 amlodipine oral [Active]; Insulin: Regular Sub-Q [Active]; Metformin Oral [Active]; benazepril Oral [Active]; Megestrol Acetate Oral [Active]; - PMHx: 02:05 COPD; Diabetes - NIDDM; Hypertension; High Cholesterol; rr5 - PSHx: 02:05 Knee surgery; eye surgery; Hysterectomy; Tonsillectomy; ear surgery; rr5 - Immunization history:: Adult Immunizations up to date, Flu vaccine is up to date. - Social history:: Smoking status: . - Ebola Screening: : Patient negative for fever greater than or equal to 101.5 degrees Fahrenheit, and additional compatible Ebola Virus Disease symptoms Patient denies exposure to infectious person Patient denies travel to an Ebola-affected area in the 21 days before illness onset. - Family history:: not pertinent. Screenin:10 Abuse screen: Denies threats or abuse. Denies injuries from another. Nutritional rr5 screening: No deficits noted. Tuberculosis screening: No symptoms or risk factors identified. Fall Risk IV access (20 points). Total Benítez Fall Scale indicates No Risk (0-24 pts). Assessment: 02:20 General: Appears in no apparent distress. uncomfortable, Behavior is calm, cooperative, rr5 appropriate for age. Pain: Complains of pain in left sided chest more on the back Pain does not radiate. Pain currently is 8 out of 10 on a pain scale. Quality of pain is described as aching, Pain began gradually, Is intermittent. 02:20 Pain:. Neuro: Level of Consciousness is awake, alert, obeys commands, Oriented to rr5 person, place, time, situation, Appropriate for age. Cardiovascular: Reports chest pain, Capillary refill < 3 seconds Patient's skin is warm and dry. Respiratory: Reports cough that is non-productive, Airway is patent Respiratory effort is even, unlabored, Respiratory pattern is regular, symmetrical. GI: No signs and/or symptoms were reported involving the gastrointestinal system. : No signs and/or symptoms were reported regarding the genitourinary system. EENT: No signs and/or symptoms were reported regarding the EENT system. Derm: Skin is intact, Skin temperature is warm. Musculoskeletal: Capillary refill < 3 seconds, Range of motion: intact in all extremities. 02:20 Respiratory: audible wheezing gargling sound. rr5 03:20 Reassessment: Patient appears in no apparent distress at this time. Patient is alert, rr5 oriented x 3, equal unlabored respirations, skin warm/dry/pink. Patient states symptoms have improved. 04:44 Reassessment: Patient appears in no apparent distress at this time. Patient is alert, rr5 oriented x 3, equal unlabored respirations, skin warm/dry/pink. seen and examined by at bedside Patient states symptoms have improved. Vital Signs: 02:00 BP 158 / 116; Pulse 67; Resp 28; Temp 98.5; Pulse Ox 100% ; Weight 50.8 kg; Height 5 rr5 ft. (152.40 cm); Pain 8/10; 03:00 BP 137 / 62; Pulse 62; Resp 22; Pulse Ox 98% ; rr5 03:48 BP 144 / 59; Pulse 63; Resp 22; Pulse Ox 98% ; rr5 04:47 BP 149 / 60; Pulse 62; Resp 23; Pulse Ox 98% ; rr5 05:20 BP 158 / 108; Pulse 69; Resp 21; Pulse Ox 100% ; Pain 3/10; rr5 02:00 Body Mass Index 21.87 (50.80 kg, 152.40 cm) rr5 ED Course: 01:58 Patient arrived in ED. ds1 02:04 Zain Lopes RN is Primary Nurse. rr5 02:05 Arm band placed on right wrist. EKG completed in triage. Results shown to MD. rr5 02:06 Vern Arias MD is Attending Physician. nanci 02:08 Patient has correct armband on for positive identification. Placed in gown. Bed in low rr5 position. Call light in reach. Side rails up X2. school lunch monitor on. Pulse ox on. NIBP on. 02:09 Triage completed. rr5 02:10 Inserted saline lock: 20 gauge in right antecubital area, using aseptic technique. rr5 ,using aseptic technique. by max LEAL Blood collected. 02:35 XRAY Chest (1 view) In Process Unspecified. EDMS 02:36 X-ray completed. Portable x-ray completed in exam room. Patient tolerated procedure kw well. 03:42 Cole Arshad MD is Hospitalizing Provider. nanci 04:13 CT completed. Patient tolerated procedure well. Patient moved to CT via stretcher. Patient moved back from CT. 04:23 CT Chest Wo Con In Process Unspecified. EDMS 10:40 EKG done, by blood or blood bank technician. dt2 Administered Medications: 02:44 Drug: NS 0.9% 1000 ml Route: IV; Rate: 125 ml/hr; Site: right antecubital; bb 06:55 Follow up: Response: No adverse reaction; IV Status: Infusion continued upon admission; rr5 IV Intake: 500ml 02:54 Not Given (Physician Discretion): fentaNYL (PF) 25 mcg IVP once mg2 02:54 Drug: Zofran 4 mg Route: IVP; Site: right antecubital; mg2 06:53 Follow up: Response: No adverse reaction rr5 02:54 Drug: morphine 2 mg Route: IVP; Site: right antecubital; mg2 06:53 Follow up: Response: No adverse reaction rr5 02:55 Drug: levofloxacin 500 mg Volume: 100 ml; Route: IVPB; Infused Over: 60 mins; Site: mg2 right antecubital; 03:45 Follow up: Response: No adverse reaction; IV Status: Completed infusion; IV Intake: rr5 100ml 02:55 Drug: Xopenex 3.75 mg Route: Inhalation; mg2 06:54 Follow up: Response: No adverse reaction rr5 02:55 Drug: AtroVENT Aerosol 0.5 mg Route: Inhalation; mg2 06:54 Follow up: Response: No adverse reaction rr5 02:56 Drug: SOLU-Medrol 2 mg/kg Route: IVP; Site: right antecubital; mg2 06:55 Follow up: Response: No adverse reaction rr5 03:45 Drug: Pepcid 20 mg Route: IVP; Site: right antecubital; rr5 06:52 Follow up: Response: No adverse reaction rr5 03:46 Dru grams of (Magnesium Sulfate 1 grams, NS 0.9% 100 ml) Route: IVPB; Infused Over: rr5 1 hrs; Site: right antecubital; 04:45 Follow up: Response: No adverse reaction; IV Status: Completed infusion; IV Intake: rr5 100ml 04:00 Drug: Lasix 20 mg Route: IVP; Site: right antecubital; rr5 06:52 Follow up: Response: No adverse reaction rr5 05:05 Drug: Rocephin 1 grams - ((cefTRIAXone) 1 grams, NS 0.9% 50 ml) Route: IVPB; Infused rr5 Over: 30 mins; Site: right antecubital; 05:35 Follow up: Response: No adverse reaction; IV Status: Completed infusion; IV Intake: [id number] Intake: 03:45 IV: 100ml; Total: 100ml. rr5 04:45 IV: 100ml; Total: 200ml. rr5 05:35 IV: 50ml; Total: 250ml. rr5 06:55 IV: 500ml; Total: 750ml. rr5 Output: 04:30 Urine: 250ml (Voided); Total: 250ml. rr5 Outcome: 03:43 Decision to Hospitalize by Provider. nanci 11:52 Patient left the ED. ph Signatures: Dispatcher [employer] EDVern Vides MD MD cha Hagler, Ervin Karon Cain ds1 Loraine Munoz, RN RN bb Kala Davis Patricia, RN RN ph Temo Johns, RN RN mg2 Fabiola Umana dt2 Zain Lopes, RN RN rr5
[2018-10-06] MEDS ORDERED: FAMOTIDINE 20 MG/2 ML VIAL IV ONE (03:51)
[2018-10-06] MEDS ORDERED: MAGNESIUM SULFATE 1 gm IVPB 1 GM/100 ML BAG IV ONE (03:51)
[2018-10-06] MEDS ORDERED: FUROSEMIDE 20 MG/ 2ML VIAL ONE (04:04)
[2018-10-06] MEDS ORDERED: CEFTRIAXONE 1000 MG/VIAL ONE (05:16)
[2018-10-06] MEDS ORDERED: NA CHLORIDE 0.9% 50 ML IV ONE (05:16)
[2018-10-06] MEDS ORDERED: ONDANSETRON 4 MG/2 ML VIAL IV PRN (06:10)
[2018-10-06] MEDS ORDERED: BENZONATATE 100 MG CAP PO PRN (06:10)
[2018-10-06 06:28] VITALS: BMI 20.5
[2018-10-06] MEDS: NA CHLORIDE 0.9% 1,000 ML IV SCH ×2 (07:00→20:20)
[2018-10-06] MEDS: IPRATROPIUM BROM 0.5MG/2.5ML NEB SCH ×3 (07:45→20:00)
[2018-10-06] MEDS: ALBUTEROL 2.5 MG/3 ML NEB SOL NEB SCH ×3 (07:45→20:00)
[2018-10-06] MEDS ORDERED: ALBUTEROL 2.5 MG/3 ML NEB SOL ONE (07:53)
[2018-10-06 08:03] LABS: Urine Blood TRACE (NEG); Urine Glucose TRACE (NEG); Urine Protein 2+ (NEG)
--- NOTE | 2018-10-06 08:10 | RAD REPORT ---
EXAM DESCRIPTION: Fermin Single View10/06/2018 2:35 am CLINICAL HISTORY: Chest pain COMPARISON: April 2018 FINDINGS: Moderate bilateral reticulonodular opacities. The heart is mildly enlarged IMPRESSION: Moderate bilateral reticulonodular opacities may indicate an atypical pneumonia
[2018-10-06] MEDS: ENOXAPARIN 30 MG/0.3 ML SQ SCH (09:00)
[2018-10-06] MEDS: AZITHROMYCIN IV 500 MG in NA CHLORIDE 0.9% 250 ML IVPB SCH (09:00)
[2018-10-06] MEDS ORDERED: ENOXAPARIN 30 MG/0.3 ML SQ ONE (09:33)
--- NOTE | 2018-10-06 10:10 | P.HP ---
Certification for Inpatient Patient admitted to: Inpatient With expected LOS: >2 Midnights Patient will require the following post-hospital care: None Practitioner: I am a practitioner with admitting privileges, knowledge of patient current condition, hospital course, and medical plan of care. Services: Services provided to patient in accordance with Admission requirements found in Title 42 Section 412.3 of the Code of Federal Regulations Patient History Date of Service: 10/06/18 Reason for admission: PNEUMONIA AND PLEURITIC CHEST PAIN History of Present Illness: PATIENT IS AN 83-YEAR-OLD FEMALE CAME TO THE HOSPITAL WITH COUGH AND CONGESTION. SHE IS HAVING A LOT OF PAIN ON TAKING A DEEP BREATH. THIS IS MAINLY ON THE LEFT SIDE. SHE CAME INTO THE HOSPITAL FOR FURTHER EVALUATION. IN THE EMERGENCY ROOM SHE HAD A CHEST X-RAY DONE WHICH REVEALED PNEUMONIA. A CT SCAN CONFIRMED THIS THAT ALSO REVEALED THAT SHE HAD MODERATE BILATERAL RETICULAR NODULAR OPACITIES SUGGESTIVE OF ATYPICAL PNEUMONIA. PATIENT WAS HYPOXIC AND DECISION WAS MADE TO ADMIT THE PATIENT TO THE HOSPITAL FOR FURTHER EVALUATION. Allergies No Known Allergies Allergy (Verified 04/30/18 15:33) Home Medications: Alendronate Sodium 70 mg PO Q7D 04/30/18 Amlodipine Besylate 10 mg PO DAILY 04/30/18 Benazepril HCl 20 mg PO DAILY 04/30/18 Carvedilol 12.5 mg PO BIDWM 04/30/18 Furosemide 40 mg PO DAILY 04/30/18 Insulin Aspart Protam & Aspart [Novolog Mix 70-30 Flexpen Syrn] 10 unit SQ DAILY 04/30/18 Megestrol [Megace*] 800 mg PO DAILY 04/30/18 Metformin HCl 1,000 mg PO BIDWM 04/30/18 Simvastatin 20 mg PO BEDTIME 04/30/18 Albuterol Sulfate [Proair Hfa] 8.5 gm IH Q6HP PRN #1 hfa.aer.ad 05/04/18 Levofloxacin [Levaquin] 500 mg PO DAILY #7 tablet 05/04/18 - Past Medical/Surgical History Has patient received pneumonia vaccine in the past: Yes Diabetic: Yes -: 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 moist/pink, EOMI, Sclerae nonicteric Neck: Supple, 2+ carotid pulse no bruit, No LAD, Without JVD or thyroid abnormality Respiratory: Diminished, Expiratory wheezes, Rhonchi/gurgles Cardiovascular: Regular rate/rhythm, Normal S1 S2, No murmurs Gastrointestinal: Normal bowel sounds, Soft and benign, Non-distended, No tenderness Musculoskeletal: No clubbing, No swelling, No tenderness Integumentary: No rashes Neurological: Normal gait, Normal speech, Normal strength at 5/5 x4 extr, Normal tone, Normal affect Lymphatics: No axilla or inguinal lymphadenopathy - Studies Laboratory Data (last 24 hrs) 10/06/18 02:15: PT Cancelled, INR Cancelled 10/06/18 02:15: WBC Cancelled, Hgb Cancelled, Hct Cancelled, Plt Count Cancelled 10/06/18 02:15: Sodium Cancelled, Potassium Cancelled, BUN Cancelled, Creatinine Cancelled, Glucose Cancelled, Magnesium Cancelled, Total Bilirubin Cancelled, AST Cancelled, ALT Cancelled, Alkaline Phosphatase Cancelled 10/06/18 02:00: PT 10.9, INR 0.92 10/06/18 02:00: WBC 11.2 H, Hgb 8.8 L, Hct 28.2 L, Plt Count 188 10/06/18 02:00: Sodium 143, Potassium 5.0, BUN 26 H, Creatinine 1.78 H, Glucose 242 H, Magnesium 1.7 L, Total Bilirubin 0.3, AST 8 L, ALT < 6 L, Alkaline Phosphatase 70 Microbiology Data (last 24 hrs): 10/06/18 02:00 Nasopharnyx Influenza Type A Antigen Screen - Final 10/06/18 02:00 Nasopharnyx Influenza Type B Antigen Screen - Final Assessment & Plan - Problems (Diagnosis) (1) Atypical pneumonia Current Visit: Yes Status: Acute (2) COPD with acute exacerbation Current Visit: Yes Status: Acute (3) Pleurisy Current Visit: Yes Status: Acute - Plan PLAN: 1. CONTINUE WITH IV ANTIBIOTICS 2. AWAITING CULTURE; PROCALCITONIN LEVEL 3. REPEAT CHEST X-RAY IN AM 4. CONTINUE WITH NEBS NEEDED 5. O2 PER PROTOCOL 6. CONTINUE WITH GENTLE HYDRATION 7. REPEAT LABS INCLUDING CBC AND RENAL FUNCTION IN A.M. 8. OUTPT FOLLOW-UP WITH PULMONARY 9. ANTI-INFLAMMATORY AND PAIN CONTROL 10.GI AND DVT PROPHYLAXIS Discharge Plan: Home Plan to discharge in: Greater than 2 days - Advance Directives Does patient have a Living Will: Yes Does patient have a Durable POA for Healthcare: No - Code Status/Comfort Care Code Status Assessed: Yes Code Status: Full Code Critical Care: No Time Spent Managing PTS Care (In Minutes): 45
--- NOTE | 2018-10-06 10:12 | RAD REPORT ---
EXAM DESCRIPTION: CT - Thorax Jeanie Lara - 10/06/2018 4:55 am CLINICAL HISTORY: The patient is 83 years old and is Female; PAIN TECHNIQUE: Axial computed tomography images of the chest without intravenous contrast. Sagittal an d coronal reformatted images were created and reviewed. This CT exam was performed using one or mor e of the following dose reduction techniques: automated exposure control, adjustment of the mA and/ or kV according to patient size, and/or use of iterative reconstruction technique. COMPARISON: No relevant prior studies available. FINDINGS: LUNGS: Scattered nodular and tree-in-bud opacities are noted throughout the lungs. The l argest nodule within the left lower lobe measures approximately 0.9 x 0.6 cm. Minimal dependent ate lectasis is noted. PLEURAL SPACE: A trace left pleural effusion is present. No pneumothorax. HEART: No cardiomegaly. No pericardial effusion. MEDIASTINUM: The tracheobronchial tree is widely patent. BONES/JOINTS: Evidence of vertebroplasty at L1 is present. SOFT TISSUES: The soft tissues are normal. VASCULATURE: Atherosclerosis of the vasculature is present. No thoracic aortic aneurysm. LYMPH NODES: Mild mediastinal hilar adenopathy is noted. IMPRESSION: 1. Multiple pulmonary nodules scattered in a somewhat tree-in-bud fashion. While findi ngs may be secondary to atypical pneumonia, underlying malignancy is high within the differential. ACR White Paper guidelines (MacMahon, et al. Radiology 2017; 284(1):228-43) suggest the following. For low-risk patients recommend follow-up chest CT at 3-6 months. If unchanged consider an addition al follow-up CT at 18-24 months. For high-risk patients initial follow-up chest CT at 3-6 months an d if unchanged, 18-24 months. 2. Trace left pleural effusion. Electronically signed by: Tari Gates MD 10/06/2018 4:30 AM CDT Due to temporary technical issues with the PACS/Fluency reporting system, reports are being signed by the in house radiologist as a courtesy to ensure prompt reporting. The interpreting radiologist is f ully responsible for the content of the report.
--- NOTE | 2018-10-06 10:43 | EKG ---
Test Date: 2018-10-06 Test Time: 02:04:29 Aviation Medicine Specialist: MG MEASUREMENT RESULTS: Intervals: Rate: 62 [place]: 134 QRSD: 76 QT: 408 QTc: 414 [place]: P: 63 [place]: 134 QRS: -4 T: 24 INTERPRETIVE STATEMENTS: Normal sinus rhythm Normal ECG Compared to ECG 03/28/2018 13:27:26 Sinus bradycardia no longer present Electronically Signed On 10-06-18 10:42:30 CDT by Joseph Edwards
[2018-10-06] MEDS ORDERED: D50W 25 GM/50 ML SYRINGE IV PRN ×2 (11:05→11:16)
[2018-10-06] MEDS ORDERED: GLUCAGON 1 MG/VIAL IM PRN ×2 (11:05→11:16)
[2018-10-06] MEDS ORDERED: INSULIN 70/30 100 UNITS/ML SQ ONE (11:07)
[2018-10-06] MEDS: INSULIN -REGULAR HUMAN 50 UNIT/0.5 ML ML SQ SCH ×4 (11:30→21:00)
[2018-10-06] MEDS ORDERED: INSULIN -REGULAR HUMAN 50 UNIT/0.5 ML ML ONE (11:56)
[2018-10-06] MEDS: CEFTRIAXONE/SWI 1gm 1 GM/10 ML SYR IV SCH (16:10)
[2018-10-06] MEDS ORDERED: CEFTRIAXONE 1 GM/NS 50 ML 1 GM/50 ML BAG IV SCH (17:00)
--- NOTE | 2018-10-06 17:47 | EKG ---
Test Date: 2018-10-06 Test Time: 10:26:05 Speech Pathology Supervisor: GAEL MEASUREMENT RESULTS: Intervals: Rate: 71 NE: 168 QRSD: 66 QT: 436 QTc: 473 [place]: P: 77 NE: 168 QRS: 0 T: 121 INTERPRETIVE STATEMENTS: Normal sinus rhythm ST & T wave abnormality, consider lateral ischemia Abnormal ECG Compared to ECG 10/06/2018 02:04:29 ST (T wave) deviation now present Possible ischemia now present Electronically Signed On 10-06-18 17:46:28 CDT by Joseph Edwards
[2018-10-07] MEDS: IPRATROPIUM BROM 0.5MG/2.5ML NEB SCH ×4 (02:00→20:06)
[2018-10-07] MEDS: ALBUTEROL 2.5 MG/3 ML NEB SOL NEB SCH ×2 (02:00→09:05)
[2018-10-07 05:47] LABS: Absolute Lymphocytes (CBC) 0.5 K/uL (0.7-4.9); Absolute Monocytes 0.4 K/uL (0.1-1.3); Absolute Neutrophil 11.6 K/uL (1.8-8.0); Basophils % 0.1 % (0-1.3); Hematocrit 24.7 % (36.0-45.0); MPV 11.7 fL (7.6-11.3); Monocytes % 3.4 % (3.3-12.3)
[2018-10-07 06:04] LABS: AST/SGOT 6 U/L (15-37); Albumin 2.2 g/dL (3.4-5.0); Alkaline Phosphatase 61 U/L (45-117); BUN Blood Urea Nitrogen 36 mg/dL (7-18); Bicarbonate 24 mmol/L (21-32); Bilirubin Total 0.2 mg/dL (0.2-1.0); Glucose Level 213 mg/dL (74-106); HDL Cholesterol 46 mg/dL (40-60); LDL Cholesterol, Calculated 36 (<130); NT PRO-BNP 8846 pg/mL (<450); Phosphorus 2.8 mg/dL (2.5-4.9); Potassium 5.3 mmol/L (3.5-5.1); Protein, Total 5.8 g/dL (6.4-8.2); Sodium Level 139 mmol/L (136-145)
[2018-10-07 06:20] LABS: ALT/SGPT < 6 U/L (12-78)
[2018-10-07] MEDS ORDERED: VANCOMYCIN 1 GM in NA CHLORIDE 0.9% 250 ML IVPB ONE (06:31)
[2018-10-07] MEDS: NA CHLORIDE 0.9% 1,000 ML IV SCH ×2 (07:38→09:48)
[2018-10-07] MEDS: CEFTRIAXONE/SWI 1gm 1 GM/10 ML SYR IV SCH (07:38)
[2018-10-07 08:52] LABS: Urine White Blood Cell Casts OK
[2018-10-07 08:53] LABS: Anisocytosis 1+; Blood Morphology Comment NOTED (NOT SEEN); Platelet Estimate ADEQ; Poikilocytosis 1+
[2018-10-07] MEDS: AZITHROMYCIN IV 500 MG in NA CHLORIDE 0.9% 250 ML IVPB SCH (09:45)
[2018-10-07] MEDS: ENOXAPARIN 30 MG/0.3 ML SQ SCH (09:46)
[2018-10-07] MEDS: INSULIN -REGULAR HUMAN 50 UNIT/0.5 ML ML SQ SCH ×4 (09:46→21:25)
--- NOTE | 2018-10-07 12:28 | P.CNS ---
Date of Consult: 10/07/18 Chief Complaint: Abnormal chest x-ray and chest pain History of Present Illness: Patient is a pleasant 83-year-old lady complaining of sudden onset of left scapula/posterior chest pain this severe and appeared in the hospital the pain has not resolved she has had a chronic cough productive sputum for the past month has never smoked patient was prescribed a bronchodilator again with no relief the slight difficulty swallowing not sure patient was found to be anemic Allergies No Known Allergies Allergy (Verified 10/06/18 13:58) Home Medications: Alendronate Sodium 70 mg PO Q7D 04/30/18 Amlodipine Besylate 10 mg PO DAILY 04/30/18 Carvedilol 12.5 mg PO BIDWM 04/30/18 Insulin Aspart Protam & Aspart [Novolog Mix 70-30 Flexpen Syrn] 10 unit SQ DAILY 04/30/18 Metformin HCl 1,000 mg PO BIDWM 04/30/18 Simvastatin 20 mg PO BEDTIME 04/30/18 Albuterol Sulfate [Proair Hfa] 8.5 gm IH Q6HP PRN #1 hfa.aer.ad 05/04/18 - Past Medical/Surgical History Diabetic: Yes -: 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 -: HTN -: hyperlipidemia, -: Rt knee surg -: lana -: toncilectomy -: hystectomy -: appy - Family History Father Medical History: Cancer Notes: prostrate Mother Medical History: Stroke - Social History Alcohol use: No CD- Drugs: No Caffeine use: Yes Place of Residence: Home Review of Systems 10-point ROS is otherwise unremarkable General: Weakness Respiratory: Cough Cardiovascular: Chest Pain Physical Examination Temp Pulse Resp BP Pulse Ox 99.0 F 72 18 174/74 H 97 10/07/18 08:00 10/07/18 08:00 10/07/18 08:00 10/07/18 08:00 10/07/18 08:00 General: Alert, Oriented x3 HEENT: Atraumatic Neck: Supple Respiratory: Clear to auscultation bilaterally Cardiovascular: No edema, Regular rate/rhythm, Normal S1 S2 - Problems (1) Atypical pneumonia Current Visit: Yes Status: Acute Plan: Patient is 83 years of age admitted with a chronic cough productive sputum for a month and a sudden onset of left-sided chest pain she has chronic renal insufficiency history of diabetes mild hyperkalemia in addition mildly anemic microcytic patient has a history of bleeding ulcers before she denies any hematemesis or melenic stools urinalysis shows protein urea DT scan shows diffuse bilateral patchy infiltrates white count is mildly elevated patient can be discharged home on a low dose of levofloxacin for 7 days 250 mg daily to follow up with me in 2 weeks patient may have reflux contributing to her cough dysphagia I recommended trial of PPI doubt if she has obstructive airways disease patient is never smoked renal ultrasound
[2018-10-07] MEDS ORDERED: ALBUTEROL 2.5 MG/3 ML NEB SOL NEB PRN ×2 (12:30→14:00)
[2018-10-07] MEDS ORDERED: PANTOPRAZOLE 40MG TABLET PO SCH (12:31)
[2018-10-07 12:52] LABS: Ferritin 42.7 ng/mL (8-388)
--- NOTE | 2018-10-07 14:21 | RAD REPORT ---
EXAM DESCRIPTION: US - Renal Ultrasound-Complete - 10/07/2018 2:07 pm CLINICAL HISTORY: Chronic renal failure COMPARISON: RP EXAM COMPLETE dated 06/13/2013 FINDINGS: Both kidneys are highly echogenic. Small benign cortical renal cysts are present bilateral ly. The right kidney measures 9.4 x 4.2 x 3.9 cm. No hydronephrosis, focal mass or perinephric fluid. The left kidney measures 8.5 x 4.4 x 4.2 cm. No hydronephrosis, focal mass or perinephric fluid. The urinary bladder is incompletely distended without gross abnormality seen. IMPRESSION: Highly echogenic kidneys compatible with underlying medical renal disease noted. No hydronephrosis.
[2018-10-07] MEDS ORDERED: NA CHLORIDE 0.9% 250 ML ONE (15:24)
[2018-10-07] MEDS: CARVEDILOL 12.5 MG TAB PO SCH (16:04)
[2018-10-07] MEDS: PANTOPRAZOLE 40MG TABLET PO SCH (16:04)
--- NOTE | 2018-10-07 16:11 | P.PN ---
Subjective Date of Service: 10/07/18 Chief Complaint: Abnormal chest x-ray and chest pain Subjective: No C/O voiced, Tolerating diet, Improving, Doing well Review of Systems 10-point ROS is otherwise unremarkable Physical Examination - Vital Signs Temperature: 99.1 F Blood Pressure: 152/59 Pulse: 107 Respirations: 18 Pulse Ox (%): 98 - Physical Exam General: Alert, In no apparent distress HEENT: Atraumatic, PERRLA, EOMI Neck: Supple, JVD not distended Respiratory: Normal air movement, Expiratory wheezes, Inspiratory wheezes Cardiovascular: Regular rate/rhythm, Normal S1 S2 Gastrointestinal: Normal bowel sounds, No tenderness Musculoskeletal: No tenderness Integumentary: No rashes Neurological: Normal speech, Normal tone, Normal affect Lymphatics: No axilla or inguinal lymphadenopathy - Studies Medications List Reviewed: Yes Assessment And Plan - Current Problems (Diagnosis) (1) COPD with acute exacerbation Current Visit: Yes Status: Acute Plan: COPD exacerbation 2.2 to Atypical PNA vs viral PNA -Duonebs, Steriods and Oxygen -Abx for PNA till culture back (2) Anemia Current Visit: Yes Status: Chronic Plan: Hgb is 7.7 today and Down to 7.5 -Denies Melena and Hememetesis -Will monitor and repeat hgb. -Will transfuse for < 7 Qualifiers: Anemia type: iron deficiency Iron deficiency anemia type: chronic blood loss Qualified Code(s): D50.0 - Iron deficiency anemia secondary to blood loss (chronic) (3) CHF (congestive heart failure), NYHA class I Onset Date: 05/03/18 Current Visit: No Status: Chronic Qualifiers: Congestive heart failure type: diastolic Congestive heart failure chronicity: chronic Qualified Code(s): I50.32 - Chronic diastolic (congestive ) heart failure (4) Diabetes 1.5, managed as type 2 Onset Date: 05/03/18 Current Visit: No Status: Chronic Plan: ISS and accu check Discharge Plan: Home Plan to discharge in: Greater than 2 days - Code Status/Comfort Care Code Status Assessed: Yes Critical Care: No
[2018-10-07] MEDS: ACETAMINOPHEN 500 MG TAB PO PRN ×2 (18:07→23:48)
[2018-10-07] MEDS ORDERED: NA CHLORIDE 0.9% 100 ML ONE (20:18)
[2018-10-07] MEDS ORDERED: ATORVASTATIN 10 MG TAB PO SCH (21:00)
[2018-10-08] MEDS: IPRATROPIUM BROM 0.5MG/2.5ML NEB SCH ×2 (02:15→07:57)
[2018-10-08 02:18] LABS: Hematocrit 31.5 % (36.0-45.0)
[2018-10-08] MEDS: INSULIN -REGULAR HUMAN 50 UNIT/0.5 ML ML SQ SCH ×2 (08:05→12:00)
[2018-10-08] MEDS: PANTOPRAZOLE 40MG TABLET PO SCH (08:07)
[2018-10-08] MEDS: CARVEDILOL 12.5 MG TAB PO SCH (08:07)
[2018-10-08] MEDS ORDERED: AMLODIPINE 10 MG TAB PO SCH (09:00)
[2018-10-08] MEDS ORDERED: levoFLOXacin 250 MG TAB PO SCH (09:00)
[2018-10-08 12:40] VITALS: O2SAT 94
[2018-10-08 13:17] VITALS: BP 167/79; TEMP 97.4
--- NOTE | 2018-10-08 16:00 | P.DS ---
Admission Date: 10/06/18 Discharge Date: 10/08/18 Disposition: ROUTINE DISCHARGE Discharge Condition: FAIR Reason for Admission: Abnormal chest x-ray and chest pain Consultations: Pulmonology - Problems (1) COPD with acute exacerbation Status: Acute (2) Anemia Status: Chronic Qualifiers: Anemia type: iron deficiency Iron deficiency anemia type: chronic blood loss Qualified Code(s): D50.0 - Iron deficiency anemia secondary to blood loss (chronic) (3) CHF (congestive heart failure), NYHA class I Onset Date: 05/03/18 Status: Chronic Qualifiers: Congestive heart failure type: diastolic Congestive heart failure chronicity: chronic Qualified Code(s): I50.32 - Chronic diastolic (congestive ) heart failure (4) Diabetes 1.5, managed as type 2 Onset Date: 05/03/18 Status: Chronic Brief History of Present Illness: PATIENT IS AN 83-YEAR-OLD FEMALE CAME TO THE HOSPITAL WITH COUGH AND CONGESTION. SHE IS HAVING A LOT OF PAIN ON TAKING A DEEP BREATH. THIS IS MAINLY ON THE LEFT SIDE. SHE CAME INTO THE HOSPITAL FOR FURTHER EVALUATION. IN THE EMERGENCY ROOM SHE HAD A CHEST X-RAY DONE WHICH REVEALED PNEUMONIA. A CT SCAN CONFIRMED THIS THAT ALSO REVEALED THAT SHE HAD MODERATE BILATERAL RETICULAR NODULAR OPACITIES SUGGESTIVE OF ATYPICAL PNEUMONIA. PATIENT WAS HYPOXIC AND DECISION WAS MADE TO ADMIT THE PATIENT TO THE HOSPITAL FOR FURTHER EVALUATION. Hospital Course: Overall during the hospital stay patient remained stable Patient was initially admitted to the hospital for COPD exacerbation. Was started on DuoNeb, steroids, oxygen. Had marked improvement in her symptoms. Pulmonology was consulted. Who agreed with the plan and cleared the patient for discharge home. Patient however also had hemoglobin of 7.4 on admission and thus there is a concern for acute blood loss anemia. Patient's after BT a couple stated I would having any melanotic stool or any hematemesis. Patient's hemoglobin was recheck here in the hospital and was at 10.4. Patient's hemoglobin was most likely an effective hemodilution as patient received fluids in the ER. Patient then was discharged home under stable condition was asked to follow up with primary care provider in about 1-2 days was discharged also asked to be taking all her medications as prescribed specifically at her inhalers. Patient was given a prescription for steroids to be taken at home for next 5 days at a tapering dose. Vital Signs/Physical Exam: Temp Pulse Resp BP Pulse Ox 97.4 F 69 24 H 167/79 H 94 10/08/18 12:00 10/08/18 12:00 10/08/18 12:00 10/08/18 12:00 10/08/18 12:00 General: Alert, In no apparent distress HEENT: Atraumatic, PERRLA, EOMI Neck: Supple, JVD not distended Respiratory: Clear to auscultation bilaterally, Normal air movement Cardiovascular: Regular rate/rhythm, Normal S1 S2 Gastrointestinal: Normal bowel sounds, No tenderness Musculoskeletal: No tenderness Integumentary: No rashes Neurological: Normal speech, Normal tone, Normal affect Lymphatics: No axilla or inguinal lymphadenopathy Laboratory Data at Discharge: WBC 12.5 K/uL (4.3-10.9) H 10/07/18 04:40 Hgb 10.4 g/dL (12.0-15.0) L D 10/08/18 01:39 Hct 31.5 % (36.0-45.0) L D 10/08/18 01:39 Plt Count 197 K/uL (152-406) 10/07/18 04:40 PT 10.9 SECONDS (9.5-12.5) 10/06/18 02:00 INR 0.92 10/06/18 02:00 Sodium 139 mmol/L (136-145) 10/07/18 04:40 Potassium 5.3 mmol/L (3.5-5.1) H 10/07/18 04:40 BUN 36 mg/dL (7-18) H 10/07/18 04:40 Creatinine 1.98 mg/dL (0.55-1.3) H 10/07/18 04:40 Glucose 213 mg/dL (74-106) H 10/07/18 04:40 Phosphorus 2.8 mg/dL (2.5-4.9) 10/07/18 04:40 Magnesium 2.0 mg/dL (1.8-2.4) 10/07/18 04:40 Total Bilirubin 0.2 mg/dL (0.2-1.0) 10/07/18 04:40 AST 6 U/L (15-37) L 10/07/18 04:40 ALT < 6 U/L (12-78) L 10/07/18 04:40 Alkaline Phosphatase 61 U/L (45-117) 10/07/18 04:40 Troponin I < 0.02 ng/mL (0.0-0.045) 10/06/18 15:50 Triglycerides 58 mg/dL (<150) 10/07/18 04:40 Cholesterol 94 mg/dL (<200) 10/07/18 04:40 HDL Cholesterol 46 mg/dL (40-60) 10/07/18 04:40 Cholesterol/HDL Ratio 2.04 10/07/18 04:40 Home Medications: Alendronate Sodium 70 mg PO Q7D 04/30/18 Amlodipine Besylate 10 mg PO DAILY 04/30/18 Carvedilol 12.5 mg PO BIDWM 04/30/18 Insulin Aspart Protam & Aspart [Novolog Mix 70-30 Flexpen Syrn] 10 unit SQ DAILY 04/30/18 Metformin HCl 1,000 mg PO BIDWM 04/30/18 Simvastatin 20 mg PO BEDTIME 04/30/18 Albuterol Sulfate [Proair Hfa] 8.5 gm IH Q6HP PRN #1 hfa.aer.ad 05/04/18 Pantoprazole [Protonix Tab*] 40 mg PO DAILYAC #30 tab 10/07/18 levoFLOXacin [Levaquin*] 250 mg PO DAILY #10 tab 10/08/18 New Medications: levoFLOXacin [Levaquin*] 250 mg PO DAILY #10 tab Pantoprazole [Protonix Tab*] 40 mg PO DAILYAC #30 tab Patient Discharge Instructions: Please f.u with PCP and Pulmonology in 1 to 2 week post discharge. New medication as prescribed bu Pulmonoloyg Diet: Regular Activity: Ad loren Followup: Trey Figueroa MD [ACTIVE - CAN ADMIT] - 1-2 Weeks (Call to schedule an appointment)
== END 2018-10-08 14:24 | disposition home or self-care (01) | DRG 190 ==
LOC: ER 01:57 → ERHOLD 06:10 → 4TH 11:41
PROVIDERS: ADMIT Hospitalist; ATTEND Family Medicine
PROC: 30233N1 Transfusion of Nonautologous Red Blood Cells into Peripheral Vein, Percutaneous Approach (ICD-10-PCS; principal; 2018-10-07)
DX: J44.1 Chronic obstructive pulmonary disease with (acute) exacerbation (principal); J18.9 Pneumonia, unspecified organism; I50.32 Chronic diastolic (congestive) heart failure; J44.0 Chronic obstructive pulmonary disease with (acute) lower respiratory infection; R09.1 Pleurisy; E78.5 Hyperlipidemia, unspecified; E13.9 Other specified diabetes mellitus without complications; Z79.4 Long term (current) use of insulin; Z79.84 Long term (current) use of oral hypoglycemic drugs; E87.5 Hyperkalemia; R13.10 Dysphagia, unspecified; D50.0 Iron deficiency anemia secondary to blood loss (chronic); I11.0 Hypertensive heart disease with heart failure; R09.02 Hypoxemia
CPT/HCPCS: 36415; 36430; 71045; 71250; 76770; 80048; 80053; 80061; 80076; 81003; 82728; 82962; 83540; 83735; 83880; 84100; 84145; 84466; 84484; 85014; 85018; 85025; 85610; 86850; 86900; 86901; 87040; 87086; 87088; 87205; 87804; 93005; 94640; 94760; 96361; 96365; 96367; 96375; 99285; J0456; J0696; J1650; J1940; J2270; J2405; J2930; J3475; J7030; P9016

== ENCOUNTER 2019-12-01 14:58 | Emergency (ER) | payer OTHER ==
--- OUTSIDE RECORDS SUMMARY | 2019-12-01 15:00 | XMS REPORT | Continuity of Care Document ---
:1935 Author Organization [facility] t Address 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[facility] - heart heart Memoria disease of disease of l [place] Outpati coronary coronary ent artery artery Clinics without without angina angina pectoris pectoris Essential Essential Problem Active [facility] (primary) (primary) Luke s - hypertensi hypertensi Me moria on on l Outpati ent Clinics Bilateral Bilateral Problem Active [facility] hearing hearing [facility] - loss, loss, Memoria unspecifie unspecifie l d hearing d hearing Outp ati loss type loss type ent Clinics Type 2 Type [address] [facility] diabetes diabetes [facility] - mellitus mellitus Memori a without without l complicati complicati Ou tpati on, on, ent unspecifie unspecifie Cl inics d whether d whether 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 insulin use use Hyperlipid Hyperlipid Problem Active [facility] emia, emia, [facility]ukes - unspecifie unspecifie Me moria d d l hyperlipid hyperlipid Ou tpati emia type emia type ent Clinics Cardiac Cardiac Problem Active [facility] arrhythmia arrhythmia [place] - , , Memoria unspecifie unspecifie l d cardiac d cardiac Outp ati arrhythmia arrhythmia en t type type Clinics Stage 3 Stage [address] [facility] chronic chronic [facility] - kidney kidney Memoria disease disease l [facility] Iron Iron Problem Active [facility] deficiency deficiency [place] - anemia due anemia due Me moria to chronic to chronic l blood loss blood loss [facility] Allergies, Adverse Reactions, Alerts This patient has no known allergies or adverse reactions. Medications Ordered Filled Start Stop Current Ordering Indication Dosage Frequency Signature Comments Components Source Medication Medication Date Date Medication? Clinician (SIG) Name Name Fluticasone Fluticasone 2017-06 Yes Andrew [address] [facility] Propionate Propionate 2-14 Alexander each [place] - 00:00: nostril Memoria 00 l [facility] Ventolin Ventolin 2017-06 Yes Andrew [address] [facility] HFA HFA 0-16 Alexander needed [facility] - 00:00: Memoria 00 l [facility] Potassium Potassium Yes Andrew as [facility] Chloride Chloride Alexander directed [facility] Alendronate Alendronate Yes Andrew [address] [facility] Sodium Sodium [facility] Benazepril Benazepril Yes Andrew [address] [facility] [address] HCl HCl Alexander [facility] Carvedilol Carvedilol Yes Andrew as [facility] Alexander directed [facility] Megestrol Megestrol Yes Andrew [address] Acetate Acetate [facility] ent [facility] Albuterol Albuterol Yes Andrew [address] [facility] Sulfate HFA Sulfate HFA Alexander needed [facility] Amlodipine Amlodipine Yes Andrew [address] [facility] Besylate Besylate [facility] NovoLog Mix NovoLog Mix Yes Andrew [address] [facility] 70/30 70/30 Alexander [facility] - Flexpen Flexpen [facility] Metformin Metformin Yes Andrew [address] [facility] HCl HCl Alexander with a [facility]ukes - meal [facility] Simvastatin Simvastatin Yes Andrew [address] [facility] Alexander in the [facility]ukes - evening [facility] Lasix Lasix Yes Andrew [address] [facility] Alexander [facility] Procedures This patient has no known procedures. Encounters Start End Encounter Admission Attending Care Care Encounter Source Date/Time Date/Time Type Type Clinicians Facility Department ID 2019-11-15 2019-11-15 Telephone [facility] [id number] 00:00:00 00:00:00 Tammy Leung [id number] [place] [id number] Professio [phone] [address] 2019-10-11 2019-10-11 Refill [facility] [id number] 00:00:00 00:00:00 Kristen [facility] [id number] [place] [id number] Professio [phone] nal 044 [facility] 2019-09-30 2019-09-30 Letter [facility] [id number] 00:00:00 00:00:00 (Out) Tammy Leung [id number] [place] [id number] Professio [phone] [address] 2019-09-30 2019-09-30 Refill [facility] [id number] 00:00:00 00:00:00 Tammy Leung [id number] [place] [id number] Professio [phone] [address] 2019-07-14 2019-07-14 Telephone [facility] [id number] 00:00:00 00:00:00 [facility] [employer] [id number] [place] [id number] [facility] [phone] Primary & 059 Specialty Care 2019-03-18 2019-03-18 Refill Chester, [facility] [id number] 00:00:00 00:00:00 [facility] [id number] [place] [id number] Professio [phone] [place] [address] [address] 2019-03-15 2019-03-15 Refill Chester, [facility] [id number] 00:00:00 00:00:00 Kristen [facility] [id number] [place] [id number] Professio [phone] [place] [address] [address] 2019-03-04 2019-03-04 Refill Chester, [facility] [id number] 00:00:00 00:00:00 [facility] [id number] [place] [id number] Professio [phone] [place] [address] [address] 2019-02-01 2019-02-01 Refill Josafat [facility] [id number] 00:00:00 00:00:00 Tammy [place] [id number] [place] [id number] Professio [phone] [address] 2019-01-18 2019-01-18 Orders Doctor BUTLER [id number] 00:00:00 00:00:00 Only Unassigned, GENESIS [id number] [place] [facility] [phone] [id number] 2018-11-18 2018-11-18 [facility] [id number] 11:18:00 11:18:00 [facility] 2018-10-11 2018-10-11 [facility] [id number] 10:00:00 10:00:00 [facility] 2018-06-11 2018-06-11 [facility] [id number] 10:15:00 10:15:00 [facility] Outpat[facility] Clinics 2018-04-13 2018-04-13 [facility] [id number] 14:05:00 14:05:00 [facility] Outpat[facility] Clinics 2018-03-31 2018-03-31 [facility] [id number] 15:00:00 15:00:00 [facility] Medicine Outpati ent Clinics 2018-02-09 2018-02-09 [facility] [id number] 14:00:00 14:00:00 [facility] Results This patient has no known results.
--- OUTSIDE RECORDS SUMMARY | 2019-12-01 15:01 | XMS REPORT | Summary of Care ---
:1935 Author Organization [facility] Address [address] [place] [address] Care Team Providers Name Role Phone Jose Arriaga DO Rac Specialist Dee Dee Cancino Primary Care Provider Encounter Details Date Type Department Care Team Description 09/30/2019 Letter (Out) [facility] Cardiology- Venancio Maurice MD [place] [address] [facility] [address] [facility], [address] [place] [address] [place] [address] [phone] Allergies Active Allergy Reactions Severity Noted Date Comments Lisinopril Cough 05/15/2018 Losartan Cough 04/21/2018 documented as of this encounter (statuses as of 09/30/2019) Medications Medication Sig Dispensed Refills Start Date End Date Status CODEINE Take by mouth as 0 Ac tive PHOSPHATE/GUAIFENESIN needed. (VIRTUSSIN AC ORAL) INSULIN ASPART inject 10 Units 0 Active PROT/INSULN ASP under the skin (NOVOLOG MIX 70-30 daily. FLEXPEN SC) MEGESTROL 20 mL. 0 Active ACETATE,MICRONIZED (MEGESTROL ACETATE,MICRO, BULK, MISC) Insulin [place], Use as directed 0 Active Disposable, (NOVOFINE 32) 32 gauge x 1/4" Ndle ERGOCALCIFEROL, Take by mouth 0 Active VITAMIN D2, (VITAMIN D daily. ORAL) metFORMIN 1,000 mg Take 1 tablet by 180 tablet 2 11/03/2017 Active tabletIndications: mouth 2 (two) Type 2 diabetes times daily with mellitus with meals. hyperglycemia, with long-term current use of insulin benzonatate (TESSALON Take 1 capsule by 20 capsule 0 8 Active PERLES) 100 mg mouth 3 (three) capsuleIndications: times daily. Cough, Abnormal breath sounds BD SINGLE USE SWABS USE THREE TIMES 300 Each 6 03/17/2018 Active REGULAR DAILY PadMIndications: Type 2 diabetes mellitus with hyperglycemia, with long-term current use of insulin ALENDRONATE 70 mg TAKE 1 TABLET 12 tablet 0 05/12/2018 Active tabletIndications: WEEKLY ON Age-related WEDNESDAYS osteoporosis without current pathological fracture ACCU-CHEK BERTA PLUS USE DIRECTED 300 Strip 3 09/28/2018 Active TEST STRP stripIndications: Type 2 diabetes mellitus with hyperglycemia, with long-term current use of insulin amLODIPine 10 mg Take 0.5 tablets 90 tablet 2 02/01/2019 Active tabletIndications: by mouth daily. Essential hypertension simvastatin 20 mg Take 1 tablet by 90 tablet 0 04/14/2019 Active tabletIndications: mouth at bedtime. Mixed hyperlipidemia furosemide 40 mg Take 1 tablet by 30 tablet 0 07/14/2019 Active tabletIndications: mouth as needed. Bilateral lower Daily for leg extremity edema, Mixed edema hyperlipidemia documented as of this encounter (statuses as of 09/30/2019) Active Problems Problem Noted Date Fluid overload 04/23/2017 Bronchitis, acute 11/17/2016 (HFpEF) heart failure with preserved ejection fraction 11/17/2016 Essential hypertension 11/17/2016 Chronic kidney disease, stage III (moderate) 7 Coronary artery disease involving [place] coronary con ry of [place] heart 11/17/2016 without angina pectoris Type 2 diabetes mellitus without complication, with lo ng-term current use 11/17/2016 of insulin Dyspnea 11/16/2016 documented as of this encounter (statuses as of 09/30/2019) Social History Tobacco Use Types Packs/Day Years Used Date Never Smoker Smokeless Tobacco: Never Used Alcohol Use Drinks/Week oz/Week Comments No rarely Sex Assigned at Date Recorded Not on file Job Start Date Occupation Industry Not on file Not on file Not on file Travel History Travel Start Travel End No recent travel history available. documented as of this encounter Last Filed Vital Signs Not on filedocumented in this encounter Plan of Treatment Health Maintenance Due Date Last Done Comments DTaP,Tdap,and Td Vaccines (1 - 1945 Tdap) Zoster Recombinant Vaccine 1984 (SHINGRIX) (1 of 2) Medicare Wellness Visit 09/17/1999 Osteoporosis Screening 09/17/1999 PNEUMOCOCCAL VACCINES 65+ (1 of 2 09/17/1999 - PCV13) EYE EXAM 04/29/2018 04/29/2017 HgA1C 05/06/2018 11/03/2017, 11/03/2017 FOOT EXAM 11/03/2018 11/03/2017, 11/03/2017, 11/03/2017 URINE MICROALBUMIN 11/03/2018 11/03/2017, 11/03/2017 INFLUENZA VACCINE (#1) 2019 CREATININE (SERUM) 07/06/2020 07/06/2019, 09/17/2017, 04/24/2017, Additional history exists LDL-C 07/06/2020 07/06/2019, 11/03/2017 documented as of this encounter Results Not on filedocumented in this encounter Insurance Payer Benefit Plan Subscriber ID Effective Dates Phone Address Type / Group HUMANA - HUMANA GOLD [id number] 2015-[place] dicare Adv MANAGED CHOICE t FFS MEDICARE HUMANA - HUMANA CHOICE [id number] 2019-Prese Medicare Adv MANAGED nt PPO MEDICARE documented as of this encounter
--- OUTSIDE RECORDS SUMMARY | 2019-12-01 15:01 | XMS REPORT | Summary of Care ---
:1935 Author Organization [facility] Address [address] [place] [address] Care Team Providers Name Role Phone Jose Arriaga DO Thread Separator Dee Dee Cancino Primary Care Provider Reason for Visit Reason Comments Refill Request Appointment Encounter Details Date Type Department Care Team Description 09/30/2019 Refill [facility] Cardiology- Venancio Maurice MD Refill Request; [address] Appointment [address] [place] [address] [place] [address] [phone] Allergies Active Allergy Reactions Severity Noted Date Comments Lisinopril Cough 05/15/2018 Losartan Cough 04/21/2018 documented as of this encounter (statuses as of 09/30/2019) Medications Medication Sig Dispensed Refills Start End Date Status Date CODEINE Take by mouth 0 Activ e PHOSPHATE/GUAIFENES as needed. IN (VIRTUSSIN AC ORAL) INSULIN ASPART inject 10 0 Activ e PROT/INSULN ASP Units under (NOVOLOG MIX 70-30 the skin FLEXPEN SC) daily. MEGESTROL 20 mL. 0 Active ACETATE,MICRONIZED (MEGESTROL ACETATE,MICRO, BULK, MISC) Insulin [place], Use as 0 Act peng Disposable, directed (NOVOFINE 32) 32 gauge x 1/4" Ndle ERGOCALCIFEROL, Take by mouth 0 Active VITAMIN D2, daily. (VITAMIN D ORAL) metFORMIN 1,000 mg Take 1 tablet 180 tablet 2 Active tabletIndications: by mouth 2 8 Type 2 diabetes (two) times mellitus with daily with hyperglycemia, with meals. long-term current use of insulin benzonatate Take 1 capsule 20 capsule 0 Ac tive (TESSALON PERLES) by mouth 3 8 100 mg (three) times capsuleIndications: daily. Cough, Abnormal breath sounds BD SINGLE USE SWABS USE THREE 300 Each 6 Active REGULAR TIMES DAILY 8 PadMIndications: Type 2 diabetes mellitus with hyperglycemia, with long-term current use of insulin ALENDRONATE 70 mg TAKE 1 TABLET 12 tablet 0 Active tabletIndications: WEEKLY ON 8 Age-related WEDNESDAYS osteoporosis without current pathological fracture ACCU-CHEK BERTA USE 300 Strip 3 Acti ve PLUS TEST STRP DIRECTED 9 stripIndications: Type 2 diabetes mellitus with hyperglycemia, with long-term current use of insulin simvastatin 20 mg Take 1 tablet 90 tablet 0 Active tabletIndications: by mouth at 9 Mixed bedtime. hyperlipidemia furosemide 40 mg Take 1 tablet 30 tablet 0 Active tabletIndications: by mouth as 0 Bilateral lower needed. Daily extremity edema, for leg edema Mixed hyperlipidemia amLODIPine 10 mg Take 0.5 90 tablet 0 Act peng tabletIndications: tablets by 0 Essential mouth daily. hypertension amLODIPine 10 mg Take 0.5 90 tablet 2 09/30/19 Dis continued tabletIndications: tablets by 9 20 (Reorder) Essential mouth daily. hypertension documented as of this encounter (statuses as of 09/30/2019) Active Problems Problem Noted Date Fluid overload 04/23/2017 Bronchitis, acute 11/17/2016 (HFpEF) heart failure with preserved ejection fraction 11/17/2016 Essential hypertension 11/17/2016 Chronic kidney disease, stage III (moderate) 7 Coronary artery disease involving [place] coronary con ry of [place] heart 11/17/2016 without angina pectoris Type 2 [...] Results Not on filedocumented in this encounter Visit Diagnoses Diagnosis Essential hypertension Unspecified essential hypertension documented in this encounter Insurance Payer Benefit Plan Subscriber ID Effective Dates Phone Address Type / Group HUMANA - HUMANA GOLD [id number] 2015-[place] dicare Adv MANAGED CHOICE t FFS MEDICARE HUMANA - HUMANA CHOICE [id number] 2019-Prese Medicare Adv MANAGED nt PPO MEDICARE documented as of this encounter
--- OUTSIDE RECORDS SUMMARY | 2019-12-01 15:01 | XMS REPORT | Summary of Care ---
:1935 Author Organization [facility] Address [address] [place] [address] Care Team Providers Name Role Phone Jose Arriaga DO Organizational Consultant Dee Dee Cancino Primary Care Provider Reason for Visit Reason Comments Refill Request Encounter Details Date Type Department Care Team Description 10/11/2019 Refill [facility] Kristen Boggs FNP Refill Request - [place] [address] [facility] [address] [place] [address] [place] [address] [phone] Allergies Active Allergy Reactions Severity Noted Date Comments Lisinopril Cough 05/15/2018 Losartan Cough 04/21/2018 documented as of this encounter (statuses as of 10/12/2019) Medications Medication Sig Dispensed Refills Start Date End Date Status CODEINE Take by mouth 0 Activ e PHOSPHATE/GUAIFENES as needed. IN (VIRTUSSIN AC ORAL) INSULIN ASPART inject 10 Units 0 Active PROT/INSULN ASP under the skin (NOVOLOG MIX 70-30 daily. FLEXPEN SC) MEGESTROL 20 mL. 0 Active ACETATE,MICRONIZED (MEGESTROL ACETATE,MICRO, BULK, MISC) Insulin [place], Use as directed 0 Active Disposable, (NOVOFINE 32) 32 gauge x 1/4" Ndle ERGOCALCIFEROL, Take by mouth 0 Active VITAMIN D2, daily. (VITAMIN D ORAL) metFORMIN 1,000 mg Take 1 tablet 180 tablet 2 11/03/2017 Active tabletIndications: by mouth 2 Type 2 diabetes (two) times mellitus with daily with hyperglycemia, with meals. long-term current use of insulin benzonatate Take 1 capsule 20 capsule 0 01/28/2018 A ctive (TESSALON PERLES) by mouth 3 100 mg (three) times capsuleIndications: daily. Cough, Abnormal breath sounds BD SINGLE USE SWABS USE THREE TIMES 300 Each 6 03/17/2018 Active REGULAR DAILY PadMIndications: Type 2 diabetes mellitus with hyperglycemia, with long-term current use of insulin ALENDRONATE 70 mg TAKE 1 TABLET 12 tablet 0 05/12/2018 Active tabletIndications: WEEKLY ON Age-related WEDNESDAYS osteoporosis without current pathological fracture simvastatin 20 mg Take 1 tablet 90 tablet 0 04/14/2019 Active tabletIndications: by mouth at Mixed bedtime. hyperlipidemia furosemide 40 mg Take 1 tablet 30 tablet 0 07/14/2019 Active tabletIndications: by mouth as Bilateral lower needed. Daily extremity edema, for leg edema Mixed hyperlipidemia amLODIPine 10 mg Take 0.5 90 tablet 0 09/30/2019 Ac tive tabletIndications: tablets by Essential mouth daily. hypertension ACCU-CHEK BERTA USE DIRECTED 300 Strip 3 10/12/2019 Active PLUS TEST STRP stripIndications: Type 2 diabetes mellitus with hyperglycemia, with long-term current use of insulin ACCU-CHEK BERTA USE DIRECTED 300 Strip 3 09/28/2018 02 Discontinued PLUS TEST STRP 0 stripIndications: Type 2 diabetes mellitus with hyperglycemia, with long-term current use of insulin documented as of this encounter (statuses as of 10/12/2019) Active Problems Problem Noted Date Fluid overload 04/23/2017 Bronchitis, acute 11/17/2016 (HFpEF) heart failure with preserved ejection fraction 11/17/2016 Essential hypertension 11/17/2016 Chronic kidney disease, stage III (moderate) 7 Coronary artery disease involving [place] coronary con ry of [place] heart 11/17/2016 without angina pectoris Type 2 diabetes mellitus without complication, with lo ng-term current use 11/17/2016 of insulin Dyspnea 11/16/2016 documented as of this encounter (statuses as of 10/12/2019) Social History Tobacco Use Types Packs/Day Years [...] filedocumented in this encounter Visit Diagnoses Diagnosis Type 2 diabetes mellitus with hyperglyce susanne, with long-term current use of insulin documented in this encounter Insurance Payer Benefit Plan Subscriber ID Effective Dates Phone Address Type / Group HUMANA - HUMANA GOLD [id number] 2015-Presleah [place] dicare Adv MANAGED CHOICE t FFS MEDICARE HUMANA - HUMANA CHOICE [id number] 2019-Prese Medicare Adv MANAGED nt PPO MEDICARE documented as of this encounter
--- OUTSIDE RECORDS SUMMARY | 2019-12-01 15:02 | XMS REPORT | Summary of Care ---
:1935 Author Organization [facility] Address [address] [place] [address] Care Team Providers Name Role Phone Jose Arriaga DO Interlocking Pavement Installer Dee Dee Cancino Primary Care Provider Reason for Visit Reason Comments Rx Concern/Question Talk To Nurse Encounter Details Date Type Department Care Team Description 11/15/2019 Telephone [facility] Tammy Maurice M D Rx Concern/Question; Cardiology- [address] Talk To Nurse [address] [place], [place] [phone] Allergies Active Allergy Reactions Severity Noted Date Comments Lisinopril Cough 05/15/2018 Losartan Cough 04/21/2018 documented as of this encounter (statuses as of 11/17/2019) Medications Medication Sig Dispensed Refills Start Date End Date Status CODEINE Take by mouth as 0 Ac tive PHOSPHATE/GUAIFENESIN needed. (VIRTUSSIN AC ORAL) INSULIN ASPART inject 10 Units 0 Active PROT/INSULN ASP under the skin (NOVOLOG MIX 70-30 daily. FLEXPEN SC) MEGESTROL 20 mL. 0 Active ACETATE,MICRONIZED (MEGESTROL ACETATE,MICRO, BULK, MISC) Insulin [place], Use as directed 0 Active Disposable, (NOVOFINE [...] fracture simvastatin 20 mg Take 1 tablet by 90 tablet 0 04/14/2019 Active tabletIndications: mouth at bedtime. Mixed hyperlipidemia furosemide 40 mg Take 1 tablet by 30 tablet 0 07/14/2019 Active tabletIndications: mouth as needed. Bilateral lower Daily for leg extremity edema, Mixed edema hyperlipidemia amLODIPine 10 mg Take 0.5 tablets 90 tablet 0 09/30/2019 Active tabletIndications: by mouth daily. Essential hypertension ACCU-CHEK BERTA PLUS USE DIRECTED 300 Strip 3 10/12/2019 Active TEST STRP stripIndications: Type 2 diabetes mellitus with hyperglycemia, with long-term current use of insulin documented as of this encounter (statuses as of 11/17/2019) Active Problems Problem Noted Date Fluid overload 04/23/2017 Bronchitis, acute 11/17/2016 (HFpEF) heart failure with preserved ejection fraction 11/17/2016 Essential hypertension 11/17/2016 Chronic kidney disease, stage III (moderate) 7 Coronary artery disease involving [place] coronary con ry of [place] heart 11/17/2016 without angina pectoris Type 2 diabetes mellitus without complication, with lo ng-term current use 11/17/2016 of insulin Dyspnea 11/16/2016 documented as of this encounter (statuses as of 11/17/2019) Social History Tobacco Use Types Packs/Day Years [...] URINE MICROALBUMIN 11/03/2018 11/03/2017, 11/03/2017 INFLUENZA VACCINE (Season Ended) 2020 CREATININE (SERUM) 07/06/2020 07/06/2019, 09/17/2017, 04/24/2017, Additional history exists LDL-C 07/06/2020 07/06/2019, 11/03/2017 documented as of this encounter Results Not on filedocumented in this encounter Insurance Payer Benefit Plan Subscriber ID Effective Dates Phone Address Type / Group HUMANA - HUMANA GOLD [id number] 2015-[place] dicare Adv MANAGED CHOICE t FFS MEDICARE HUMANA - HUMANA CHOICE [id number] 2019-Prese Medicare Adv MANAGED nt PPO MEDICARE documented as of this encounter
[2019-12-01 17:24] LABS: Urine Bacteria <20 /HPF (<20); Urine Culture Reflex Order REFLEXED; Urine Mucus 2+ /HPF (NONE SEEN)
[2019-12-01 17:25] LABS: Urine Blood TRACE (NEG); Urine Glucose NEGATIVE (NEG); Urine Protein 3+ (NEG); Urine Specific Gravity 1.025 (1.005-1.030); Urine pH 5.5 (5.0-7.0)
[2019-12-01 18:01] LABS: Absolute Lymphocytes (CBC) 0.8 K/uL (0.7-4.9); Basophils % 0.9 % (0-1.3); Hematocrit 30.8 % (36.0-45.0); Lymphocytes % 13.8 % (15.3-44.8); MPV 10.7 fL (7.6-11.3); RBC Red Blood Cell Count 3.75 M/uL (3.86-4.86)
[2019-12-01 18:06] LABS: Potassium 4.3 mmol/L (3.5-5.1)
--- NOTE | 2019-12-01 19:09 | RAD REPORT ---
EXAM DESCRIPTION: RAD - Chest Pa And Lat (2 Views) - 12/01/2019 6:21 pm CLINICAL HISTORY: FEVER COMPARISON: CT October 06, 2018, portable chest October 06, 2018, two view chest April 2018 TECHNIQUE: Frontal and lateral views of the chest were obtained. FINDINGS: The lungs are extensively fibrotic as a baseline. There is no large mass or consolidations seen. Lung markings are slightly more pronounced in the mid left lung field. Mild or early left midl radhika field pneumonia would be possible. Given the severity of the overall lung pattern additional area s of mild edema or infiltrate could be present. Heart size is normal and central vasculature is within normal limits. No pleural effusion or pneu mothorax seen. No acute bone findings seen. Bones are osteopenic with accentuated thoracic kyphosis. Vertebroplasty changes are present in the L1 body. Approximately 40% compression of the L2 body is seen. Bone change s are similar to comparison imaging. No aortic abnormality. IMPRESSION: Left midlung field interstitial pattern increased over baseline. Finding is suspicious f or early pneumonia. Extent of chronic interstitial pattern could mask other areas of mild edema or infiltrate.
[2019-12-01] MEDS ORDERED: NA CHLORIDE 0.9% 500 ML ONE (19:27)
--- NOTE | 2019-12-01 20:26 | ER ---
Nurse's Notes [facility] Name: Dahlia Reyes Age: 84 yrs Sex: Female : 1935 Arrival Date: 12/01/2019 Time: 15:00 Bed 17 Private MD: Diagnosis: Pneumonia, unspecified organism Presentation: 11/30 15:17 Chief complaint: Patient's son or daughter states: chills since last night, woke up iw this morning and felt more weak, headache, decreased appetite, also feels maybe the beginning of a UTI, has hx of UTIs , no fever. Coronavirus screen: Proceed with normal triage. Patient denies a cough. Patient denies shortness of breath or difficulty breathing. Patient denies measured and/or subjective temperature greater than 100.4F prior to today's visit. Patient denies travel on a cruise ship or to a country the [facility] currently lists as an affected area. Patient denies contact with known and/or suspected case of COVID-19. Ebola Screen: Patient negative for fever greater than or equal to 101.5 degrees Fahrenheit, and additional compatible Ebola Virus Disease symptoms Patient denies exposure to infectious person. Patient denies travel to an Ebola-affected area in the 21 days before illness onset. No symptoms or risks identified at this time. Initial Sepsis Screen: Does the patient meet any 2 criteria? No. Patient's initial sepsis screen is negative. Does the patient have a suspected source of infection? No. Patient's initial sepsis screen is negative. Risk Assessment: Do you want to hurt yourself or someone else? Patient reports no desire to harm self or others. Onset of symptoms was November 30, 2019. 15:17 Method Of Arrival: Wheelchair iw 15:17 Acuity: NOE 3 iw Historical: - Allergies: 15:22 No Known Allergies; iw - Home Meds: 15:22 alendronate 70 mg oral tab once wkly [Active]; amlodipine 10 mg oral tab once daily iw [Active]; carvedilol 12.5 mg oral tab 2 times per day [Active]; metformin 1,000 mg oral tab 2 times per day [Active]; Novolog 100 unit/mL Sub-Q soln 10 units [Active]; simvastatin 20 mg Oral tab 1 tab once daily [Active]; furosemide 40 mg Oral tab 1 tab once daily [Active]; levothyroxine 25 mcg tab 1 tab once daily [Active]; Trelegy inhaler [Active]; - PMHx: 15:22 COPD; High Cholesterol; Hypertension; Diabetes - IDDM; iw - PSHx: 15:22 Knee surgery; eye surgery; Hysterectomy; Tonsillectomy; ear surgery; iw - Immunization history:: Adult Immunizations up to date. - Social history:: Smoking status: Patient denies any tobacco usage or history of. Screenin:47 Abuse screen: Denies threats or abuse. Denies injuries from another. Nutritional ca1 screening: No deficits noted. Tuberculosis screening: No symptoms or risk factors identified. Fall Risk Ambulatory Aid- Crutches/Cane/Walker (15 pts). Gait- Impaired (20 pts.). Total Benítez Fall Scale indicates Low Risk Score (25-44 pts). Fall prevention measures have been instituted. Side Rails Up X 2 As available Patient and Family Educated on Fall Prevention Program and strategies. Assessment: 16:47 General: Appears in no apparent distress. comfortable, Behavior is calm, cooperative, ca1 appropriate for age. Pain: Denies pain. Neuro: Level of Consciousness is awake, alert, obeys commands, Oriented to person, place, time, situation, Appropriate for age. Cardiovascular: Heart tones S1 S2 present Capillary refill < 3 seconds Patient's skin is warm and dry. Respiratory: Airway is patent Respiratory effort is even, unlabored, Respiratory pattern is regular, symmetrical, Breath sounds are clear bilaterally. GI: Abdomen is flat, non-distended, Bowel sounds present X 4 quads. Abd is soft and non tender X 4 quads. : Reports burning with urination, since yesterday. EENT: No signs and/or symptoms were reported regarding the EENT system. Derm: Skin is intact, is healthy with good turgor, Skin is pink, warm \T\ dry. Musculoskeletal: Circulation, motion, and sensation intact. Capillary refill < 3 seconds. 17:26 Reassessment: Patient appears in no apparent distress at this time. Patient is alert, ca1 oriented x 3, equal unlabored respirations, skin warm/dry/pink. 18:15 Reassessment: Patient appears in no apparent distress at this time. Patient is alert, ca1 oriented x 3, equal unlabored respirations, skin warm/dry/pink. PT wheeled to Xray. Vital Signs: 15:17 BP 130 / 53; Pulse 58; Resp 16; Temp 98.8; Pulse Ox 100% on R/A; Weight 54.43 kg; iw Height 5 ft. 2 in. (157.48 cm); Pain 7/10; 16:53 BP 190 / 88; Pulse 54; Resp 16 S; Pulse Ox 100% on R/A; ca1 17:26 BP 154 / 73; Pulse 50; Resp 17 S; Pulse Ox 99% on R/A; ca1 18:25 BP 170 / 86; Pulse 55; Resp 16; Pulse Ox 100% on R/A; dh4 19:25 BP 174 / 88; Pulse 51; Resp 17; Pulse Ox 100% on R/A; ca1 15:17 Body Mass Index 21.95 (54.43 kg, 157.48 cm) iw ED Course: 15:00 Patient arrived in ED. ag5 15:19 Triage completed. iw 15:22 Arm band placed on. iw 16:08 Marisel Donaldson RN is Primary Nurse. ca1 16:10 Roula Chairez FNP-C is PHCP. kb 16:10 Darren Dave MD is Attending Physician. kb 16:47 Patient has correct armband on for positive identification. Placed in gown. Bed in low ca1 position. Call light in reach. Side rails up X2. Pulse ox on. NIBP on. Warm blanket given. 16:52 Urine Microscopic Only Sent. ca1 17:43 Radiology exam delayed due to IV insertion attempt and/or patient not having az appropriate IV at this time. 17:47 No provider procedures requiring assistance completed. Initial lab(s) drawn, by me, ca1 sent to lab. Inserted saline lock: 20 gauge in right antecubital area, using aseptic technique. Blood collected. 18:19 Chest Pa And Lat (2 Views) XRAY In Process Unspecified. EDMS 20:02 Report given to MEL Black. ca1 Administered Medications: 19:23 Drug: NS 0.9% 500 ml Route: IV; Rate: bolus; Site: right antecubital; ca1 19:58 Follow up: Response: No adverse reaction; IV Status: Completed infusion ca1 20:00 Follow up: Response: No adverse reaction; IV Status: Completed infusion ca1 Outcome: 20:25 Discharge ordered by . kb 21:04 Patient left the ED. ls4 Addendum: 12/04/2019 07:14 Addendum: Culture Results: Positive urine culture. No further action required. Bacteria e b sensitive to prescribed antibiotic. Signatures: Dispatcher [employer] EDMS Roula Chairez, DANITA-Santa REAL ESTATE SALES ASSOCIATE-Renetta Cruz, MEL RN Andressa Aden Araceli az Stewart, Lisa, RN RN ls4 Marisel Donaldson RN RN ca1 [place], Ajare [facility] Juan Acosta [facility]
--- NOTE | 2019-12-01 20:26 | EDPHYS ---
Physician Documentation [facility] Name: Dahlia Reyes Age: 84 yrs Sex: Female : 1935 Arrival Date: 12/01/2019 Time: 15:00 Bed 17 Private MD: ED Physician Darren Dave HPI: 12/01 00:51 This 84 yrs old Female presents to ER via Wheelchair with complaints of kb Doesn't Feel Right, Decreased Appetite. 00:51 The patient presents with generalized weakness. Onset: The symptoms/episode kb began/occurred this morning. Context: occurred at home, just prior to the episode the patient experienced no apparent symptoms. Modifying factors: The symptoms are alleviated by nothing, the symptoms are aggravated by nothing. Associated signs and symptoms: Pertinent positives: chills. Severity of symptoms: At their worst the symptoms were mild in the emergency department the symptoms are unchanged. Patient's baseline: Neuro: alert and fully oriented, Motor: no deficits, Ambulation: walks without assistance, Speech: normal. The patient has not experienced similar symptoms in the past. The patient has not recently seen a physician. Pt reports she woke up with chills this morning and she felt like she had sweated at some point during the night because her gown was damp. States she felt a little weak yesterday, "but I'm 84 years old so that is to be expected." States she wanted to make sure she wasn't getting a UTI. Denies fever, cough, congestion and shortness of breath. STates she did use her inhaler this morning for COPD. Historical: - Allergies: 11/30 15:22 No Known Allergies; iw - Home Meds: 15:22 alendronate 70 mg oral tab once wkly [Active]; amlodipine 10 mg oral tab once daily iw [Active]; carvedilol 12.5 mg oral tab 2 times per day [Active]; metformin 1,000 mg oral tab 2 times per day [Active]; Novolog 100 unit/mL Sub-Q soln 10 units [Active]; simvastatin 20 mg Oral tab 1 tab once daily [Active]; furosemide 40 mg Oral tab 1 tab once daily [Active]; levothyroxine 25 mcg tab 1 tab once daily [Active]; Trelegy inhaler [Active]; - PMHx: 15:22 COPD; High Cholesterol; Hypertension; Diabetes - IDDM; iw - PSHx: 15:22 Knee surgery; eye surgery; Hysterectomy; Tonsillectomy; ear surgery; iw - Immunization history:: Adult Immunizations up to date. - Social history:: Smoking status: Patient denies any tobacco usage or history of. ROS: 12/01 00:38 ENT: Negative for injury, pain, and discharge, Neck: Negative for injury, pain, and kb swelling, Cardiovascular: Negative for chest pain, palpitations, and edema, Respiratory: Negative for shortness of breath, cough, wheezing, and pleuritic chest pain, Back: Negative for injury and pain, MS/Extremity: Negative for injury and deformity, Skin: Negative for injury, rash, and discoloration. Constitutional: Positive for chills, Negative for body aches, fatigue, fever, malaise, poor PO intake, weight loss. Abdomen/GI: Positive for decreased appetite. Neuro: Positive for weakness. Exam: 00:38 Constitutional: This is a well developed, well nourished patient who is awake, alert, kb and in no acute distress. Head/Face: Normocephalic, atraumatic. ENT: Nares patent. No nasal discharge, no septal abnormalities noted. Tympanic membranes are normal and external auditory canals are clear. Oropharynx with no redness, swelling, or masses, exudates, or evidence of obstruction, uvula midline. Mucous membranes moist. Neck: Trachea midline, no thyromegaly or masses palpated, and no cervical lymphadenopathy. Supple, full range of motion without nuchal rigidity, or vertebral point tenderness. No Meningismus. Chest/axilla: Normal chest wall appearance and motion. Nontender with no deformity. No lesions are appreciated. Cardiovascular: Regular rate and rhythm with a normal S1 and S2. No gallops, murmurs, or rubs. Normal PMI, no JVD. No pulse deficits. Respiratory: Lungs have equal breath sounds bilaterally, clear to auscultation and percussion. No rales, rhonchi or wheezes noted. No increased work of breathing, no retractions or nasal flaring. Abdomen/GI: Soft, non-tender, with normal bowel sounds. No distension or tympany. No guarding or rebound. No evidence of tenderness throughout. Skin: Warm, dry with normal turgor. Normal color with no rashes, no lesions, and no evidence of cellulitis. MS/ Extremity: Pulses equal, no cyanosis. Neurovascular intact. Full, normal range of motion. Neuro: Awake and alert, GCS 15, oriented to person, place, time, and situation. Cranial nerves II-XII grossly intact. Motor strength 5/5 in all extremities. Sensory grossly intact. Cerebellar exam normal. Normal gait. Vital Signs: 11/30 15:17 BP 130 / 53; Pulse 58; Resp 16; Temp 98.8; Pulse Ox 100% on R/A; Weight 54.43 kg; iw Height 5 ft. 2 in. (157.48 cm); Pain 7/10; 16:53 BP 190 / 88; Pulse 54; Resp 16 S; Pulse Ox 100% on R/A; ca1 17:26 BP 154 / 73; Pulse 50; Resp 17 S; Pulse Ox 99% on R/A; ca1 18:25 BP 170 / 86; Pulse 55; Resp 16; Pulse Ox 100% on R/A; dh4 19:25 BP 174 / 88; Pulse 51; Resp 17; Pulse Ox 100% on R/A; ca1 15:17 Body Mass Index 21.95 (54.43 kg, 157.48 cm) iw MDM: 16:10 Patient medically screened. kb 12/01 00:44 Data reviewed: vital signs, nurses notes. Data interpreted: Pulse oximetry: on room air kb is 100 %. Interpretation: normal. Counseling: I had a detailed discussion with the patient and/or guardian regarding: the historical points, exam findings, and any diagnostic results supporting the discharge/admit diagnosis, lab results, radiology results, the need for outpatient follow up, a family practitioner, to return to the emergency department if symptoms worsen or persist or if there are any questions or concerns that arise at home. ED course: Discussed findings with Dr Walker. Recommended outpatient antibiotics due to 100% O2 sat on room air, no cough, no shortness of breath. Pt has been resting comfortably on stretcher. . 11/30 16:14 Order name: Urine Microscopic Only; Complete Time: 17:35 kb 11/30 17:09 Order name: Urine Dipstick--Ancillary (enter results); Complete Time: 17:35 em1 11/30 17:25 Order name: Urine Culture EDMS 11/30 17:36 Order name: CBC with Diff; Complete Time: 18:49 kb 11/30 17:36 Order name: Basic Metabolic Panel; Complete Time: 18:49 kb 11/30 17:36 Order name: Chest Pa And Lat (2 Views) XRAY; Complete Time: 19:18 kb 11/30 16:14 Order name: Urine Dipstick-Ancillary (obtain specimen); Complete Time: 16:55 kb 11/30 17:36 Order name: IV Start; Complete Time: 17:47 kb Administered Medications: 11/30 19:23 Drug: NS 0.9% 500 ml Route: IV; Rate: bolus; Site: right antecubital; ca1 19:58 Follow up: Response: No adverse reaction; IV Status: Completed infusion ca1 20:00 Follow up: Response: No adverse reaction; IV Status: Completed infusion ca1 Disposition: 12/01/19 20:25 Discharged to Home. Impression: Pneumonia, unspecified organism. - Condition is Stable. - Discharge Instructions: Community-Acquired Pneumonia, Adult, [id number]. - Prescriptions for Levaquin 500 mg Oral Tablet - take 1 tablet by ORAL route once daily for 7 days; 7 tablet. - Medication Reconciliation Form, Thank You Letter, Antibiotic Education, Prescription Opioid Use form. - Follow up: Emergency Department; When: As needed; Reason: Worsening of condition. Follow up: Private Physician; When: 2 - 3 days; Reason: Recheck today's complaints, Continuance of care, Re-evaluation by your physician. Addendum: 12/05/2019 05:21 Co-signature as Attending Physician, Darren Dave MD I agree with the assessment and k dr plan of care. Signatures: Dispatcher [employer] [facility] Roula Chairez, MEDIA MARKETING MANAGER-C MEDIA MARKETING MANAGER-Ckb Darren Dave MD MD [facility] Renetta Spence RN RN iw Stewart, Lisa, RN RN ls4 Marisel Donaldson RN RN ca1 Corrections: (The following items were deleted from the chart) 11/30 21:04 20:25 12/01/2019 20:25 Discharged to Home. Impression: Pneumonia, unspecified organism. ls4 Condition is Stable. Forms are Medication Reconciliation Form, Thank You Letter, Antibiotic Education, Prescription Opioid Use. Follow up: Emergency Department; When: As needed; Reason: Worsening of condition. Follow up: Private Physician; When: 2 - 3 days; Reason: Recheck today's complaints, Continuance of care, Re-evaluation by your physician. kb
[2019-12-01] MEDS ORDERED: CEFTRIAXONE/SWI 1gm 1 GM/10 ML SYR ONE (20:53)
[2019-12-01 21:11] VITALS: TEMP 98.8
[2019-12-01 21:15] VITALS: O2SAT 100
[2019-12-01 21:16] VITALS: BP 174/88
== END 2019-12-01 21:04 | disposition home or self-care (01) ==
LOC: ER 14:58
DX: J18.9 Pneumonia, unspecified organism (principal); E11.9 Type 2 diabetes mellitus without complications
CPT/HCPCS: 87088; 85025; 87086; 80048; 36415; 87077; 87186; 71046; 96360; 99284; J0696; J7040; 81003; 81015

== ENCOUNTER 2019-12-03 23:24 | Emergency (ER) | payer OTHER ==
--- OUTSIDE RECORDS SUMMARY | 2019-12-03 23:27 | XMS REPORT | Continuity of Care Document ---
:1935 Author Organization [facility] t Address 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 Medications Ordered Filled Start Stop Current Ordering Indication Dosage Frequency Signature Comments Components Source Medication Medication Date Date Medication? Clinician (SIG) Name Name Fluticasone Fluticasone 2017-06 Yes Andrew [address] [facility] Propionate Propionate 2-14 Alexander each Patsy kes - 00:00: nostril Memoria 00 l [facility] ent [facility] Ventolin Ventolin 2017-06 Yes Andrew [address] [facility] HFA HFA 0-16 [facility] needed [facility] - 00:[facility]: Memoria 00 l [facility] ent [facility] Potassium Potassium Yes Andrew as [facility] Chloride Chloride Alexander directed [facility] ent [facility] Alendronate Alendronate Yes Andrew [address] [facility] Sodium Sodium Alexander [facility] l [facility] ent [facility] Benazepril Benazepril Yes Andrew [address] [facility] HCl HCl Alexander [facility] ent [facility] Carvedilol Carvedilol Yes Andrew as [facility] Alexander directed [facility] l [facility] ent [facility] Megestrol Megestrol Yes Andrew [address] Acetate Acetate Alexander [facility] ent [facility] Albuterol Albuterol Yes Andrew [address] [facility] Sulfate HFA Sulfate HFA Alexander needed [facility] ent [facility] Amlodipine Amlodipine Yes Andrew [address] [facility] Besylate Besylate Alexander [facility] ent [facility] NovoLog Mix NovoLog Mix Yes Andrew [address] [facility] 70/30 70/30 Alexander [facility] - Flexpen Flexpen [facility] Metformin Metformin Yes Andrew [address] [facility] HCl HCl Alexander with a [facility] - meal [facility] Simvastatin Simvastatin Yes Andrew [address] [facility] Alexander in the [facility] - evening [facility] Lasix Lasix Yes Andrew [address] [facility] Procedures This patient has no known procedures. Encounters Start End Encounter Admission Attending Care Care Encounter Source Date/Time Date/Time Type Type Clinicians Facility Department ID 2019-11-15 2019-11-15 Telephone [facility] [id number] 00:00:00 00:00:00 Tammy Leung [id number] [place] [id number] Professio [phone] [address] 2019-10-11 2019-10-11 Refill [facility] [id number] 00:00:00 00:00:00 [employer] [id number] [place] [id number] Professio [phone] [place] 044 [facility] 2019-09-30 2019-09-30 Letter [facility] [id number] 00:00:00 00:00:00 (Out) Tammy Leung [id number] [place] [id number] Professio [phone] [address] 2019-09-30 2019-09-30 Refill [facility] [id number] 00:00:00 00:00:00 Tammy Leung [id number] [place] [id number] Professio [phone] [address] 2019-07-14 2019-07-14 Telephone [facility] [id number] 00:00:00 00:00:00 [facility] [employer] [id number] [place] [id number] [facility] [phone] Primary & 0[facility] 2019-03-18 2019-03-18 Refill [place], [facility] [id number] 00:00:00 00:00:00 [facility] [id number] [place] [id number] Professio [phone] [place] [address] [address] 2019-03-15 2019-03-15 Refill [place], [facility] [id number] 00:00:00 00:00:00 [facility] [id number] [place] [id number] Professio [phone] [place] [address] [address] 2019-03-04 2019-03-04 Refill [place], [facility] [id number] 00:00:00 00:00:00 [facility] [id number] [place] [id number] Professio [phone] [place] [address] [address] 2019-02-01 2019-02-01 Refill Josafat [facility] [id number] 00:00:00 00:00:00 Tammy [place] [id number] [place] [id number] Professio [phone] [address] 2019-01-18 2019-01-18 Orders Doctor BUTLER [id number] 00:00:00 00:00:00 Only Unassigned, [place] [id number] [place] [facility] [phone] [id number] 2018-11-18 2018-11-18 [facility] [id number] [facility] 11:18:00 11:18:00 [facility] 2018-10-11 2018-10-11 [facility] [id number] [address] 10:00:00 10:00:00 [facility] 2018-06-11 2018-06-11 [facility] [id number] 10:15:00 10:15:00 [facility] Outpati ent Clinics 2018-04-13 2018-04-13 [facility] [id number] 14:05:00 14:05:00 [facility] Outpati ent Clinics 2018-03-31 2018-03-31 [facility] [id number] 15:00:00 15:00:00 [facility] Medicine Outpati ent Clinics 2018-02-09 2018-02-09 [facility] [id number] 14:00:00 14:00:00 [facility] Results This patient has no known results.
[2019-12-04 00:22] LABS: Absolute Lymphocytes (CBC) 0.7 K/uL (0.7-4.9); Basophils % 0.6 % (0-1.3); Hematocrit 29.9 % (36.0-45.0); Lymphocytes % 6.5 % (15.3-44.8); MPV 9.9 fL (7.6-11.3); RBC Red Blood Cell Count 3.66 M/uL (3.86-4.86)
[2019-12-04 00:27] LABS: Protime INR 0.96
[2019-12-04] MEDS ORDERED: ACETAMINOPHEN 500 MG TAB ONE (00:32)
[2019-12-04 00:37] LABS: NT PRO-BNP 9011 pg/mL (<450); Troponin (Emerg Dept Use Only) < 0.02 ng/mL (0.0-0.045)
[2019-12-04 00:39] LABS: ALT/SGPT 9 U/L (12-78); AST/SGOT 12 U/L (15-37); Albumin 2.5 g/dL (3.4-5.0); Alkaline Phosphatase 61 U/L (45-117); BUN Blood Urea Nitrogen 27 mg/dL (7-18); Bicarbonate 22 mmol/L (21-32); Bilirubin Direct < 0.1 mg/dL (0-0.2); Bilirubin Total 0.2 mg/dL (0.2-1.0); Glucose Level 268 mg/dL (74-106); Magnesium 1.6 mg/dL (1.8-2.4); Potassium 4.5 mmol/L (3.5-5.1); Protein, Total 5.9 g/dL (6.4-8.2); Sodium Level 137 mmol/L (136-145)
--- NOTE | 2019-12-04 03:31 | ER ---
Nurse's Notes [facility] Name: Dahlia Reyes Age: 84 yrs Sex: Female : 1935 Arrival Date: 12/03/2019 Time: 23:30 Bed 2 Private MD: Diagnosis: Fall-Mechanical;Contusion of unspecified part of head;Contusion of lower back and pelvis Presentation: 12/02 23:36 Chief complaint: EMS states: SHE FELL AN HOUR AGO AND HIT HER HEAD. IT WAS UNWITNESSED. rv PATIENT HAS HEMATOMA ON THE RIGHT SIDE OF THE TOP OF THE HEAD. COMPLAINS OF PAIN ON HEAD AND BUTTOCKS. DENIES LOC. NOT ON BLOOD THINNER. Care prior to arrival: None. Mechanism of Injury: Fall from standing position. an unknown distance. Trauma event details: Injury occurred in the [facility], Injury occurred: at home. Injury occurred: December 03, 2019 Injury occurred at: 22:30. 23:36 Acuity: NOE 3 rv 23:36 Method Of Arrival: EMS: [facility] rv 23:42 Coronavirus screen: Proceed with normal triage. Ebola Screen: No symptoms or risks rv identified at this time. Initial Sepsis Screen: Does the patient meet any 2 criteria? No. Patient's initial sepsis screen is negative. Does the patient have a suspected source of infection? No. Patient's initial sepsis screen is negative. Risk Assessment: Do you want to hurt yourself or someone else? Patient reports no desire to harm self or others. Onset of symptoms was December 03, 2019 at 22:30. Trauma Activation: Not Applicable Physician: ED Physician; Name: ; Notified At: ; Arrived At: Physician: General Surgeon; Name: ; Notified At: ; Arrived At: Physician: Radiology; Name: ; Notified At: ; Arrived At: Physician: Respiratory; Name: ; Notified At: ; Arrived At: Physician: Lab; Name: ; Notified At: ; Arrived At: Historical: - Allergies: 23:42 No Known Allergies; rv - Home Meds: 23:42 alendronate 70 mg Oral tab once wkly [Active]; amlodipine 10 mg tab once daily rv [Active]; carvedilol 12.5 mg Oral tab 2 times per day [Active]; furosemide 40 mg Oral tab 1 tab once daily [Active]; levothyroxine 25 mcg tab 1 tab once daily [Active]; metformin 1,000 mg Oral tab 2 times per day [Active]; Novolog 100 unit/mL Sub-Q soln 10 units [Active]; simvastatin 20 mg Oral tab 1 tab once daily [Active]; trelegy inhaler [Active]; - PMHx: 23:42 COPD; Diabetes - IDDM; Diabetes - NIDDM; High Cholesterol; Hypertension; rv - PSHx: 23:42 None; rv - Family history: is not pertinent. - Immunization history: Last tetanus immunization: unknown. - Social history:: Smoking status: Patient denies any tobacco usage or history of. Screenin:39 Abuse screen: Denies threats or abuse. Denies injuries from another. Tuberculosis rv screening: No symptoms or risk factors identified. 23:42 Nutritional screening: No deficits noted. Fall Risk Fall in past 12 months (25 points). rv Secondary diagnosis (15 points) impaired mobility, No IV (0 pts). Ambulatory Aid- Crutches/Cane/Walker (15 pts). Gait- Weak (10 pts.). Mental Status- Overestimates/Forgets Limitations (15 pts.). Total Benítez Fall Scale indicates High Risk Score (45 or more points). Fall prevention measures have been instituted. Side Rails Up X 2 Placed Close to Nursing Station Frequent Obs/Assessments Occuring As available patient and family educated on Fall Prevention Program and Strategies. Primary Survey: 23:39 NO uncontrolled hemorrhage observed. Breathing/Chest: Respiratory pattern: regular, rv Respiratory effort: spontaneous. Circulation: Skin temperature: warm. Disability Alert. Exposure/Environment: There is no evidence of uncontrolled external bleeding. No obvious injuries are noted at this time. A warming method has been applied: A warm blanket has been provided to the patient. Secondary Survey: 23:39 HEENT: No deficits noted. HEENT: Head No injury/deformity Face No injury/deformity rv Eyes: No injury or deformity noted. Ears: clear Nose: clear to bilateral nares. Gastrointestinal: No deficits noted. : No deficits noted. No signs and/or symptoms were reported regarding the genitourinary system. Musculoskeletal: Circulation, motion, and sensation intact. Range of motion: intact in all extremities. Assessment: 23:38 General: Appears comfortable, Behavior is calm, cooperative. Pain: Complains of pain in rv HEAD, AND BUTTOCKS. Neuro: Level of Consciousness is awake, alert, obeys commands, Oriented to person, place, time, situation, Moves all extremities. Speech is normal, Pupils are PERRLA, Pupil Size: 2. Cardiovascular: Patient's skin is warm and dry. Rhythm is regular. Respiratory: Airway is patent Respiratory effort is even, unlabored, Respiratory pattern is regular. Derm: Bruising that is bright red, RIGHT SIDE, TOP OF THE HEAD. Musculoskeletal: Circulation, motion, and sensation intact. Range of motion: intact in all extremities. 12/03 02:49 Reassessment: Patient and/or family updated on plan of care and expected duration. Pain rv level reassessed. Patient is alert, oriented x 3, equal unlabored respirations, skin warm/dry/pink. UPDATED ON THE CT SCAN RESULT. AWAITING XRAY RESULTS. Vital Signs: 12/02 23:39 BP 179 / 65; Pulse 65; Resp 16; Temp 97.8; Pulse Ox 100% ; Weight 54.43 kg; Height 5 rv ft. 3 in. (160.02 cm); Pain 4/10; 07 00:28 BP 162 / 66; Pulse 62; Resp 15; Pulse Ox 99% on R/A; rv 01:30 BP 151 / 58; Pulse 61; Resp 18; Pulse Ox 99% on R/A; rv 02:48 BP 143 / 53; Pulse 68; Resp 16; Pulse Ox 97% on R/A; rv 12/02 23:39 Body Mass Index 21.26 (54.43 kg, 160.02 cm) rv Trinity Coma Score: 12/02 23:39 Eye Response: spontaneous(4). Verbal Response: oriented(5). Motor Response: obeys rv commands(6). Total: 15. Trauma Score (Adult): 23:39 Eye Response: spontaneous(1); Verbal Response: oriented(1); Motor Response: obeys rv commands(2); Systolic BP: > 89 mm Hg(4); Respiratory Rate: 10 to 29 per min(4); Esme Score: 15; Trauma Score: 12 ED Course: 23:30 Patient arrived in ED. cl3 23:36 Anson Hernandez, MEL is Primary Nurse. rv 23:38 Triage completed. rv 23:39 Patient has correct armband on for positive identification. Placed in gown. Bed in low rv position. Call light in reach. Side rails up X2. 23:39 Patient maintains SpO2 saturation greater than 95% on room air. rv 23:42 Stefan Coto MD is Attending Physician. [facility] 23:43 Arm band placed on Patient placed in the treatment room, on a stretcher, Patient rv notified of wait time. 23:43 Thermoregulation: warm blanket given to patient. rv 23:55 Inserted saline lock: 18 gauge in right antecubital area, using aseptic technique. rv Blood collected. 23:55 Initial lab(s) drawn, by me, sent to lab. rv [id number] 01:06 CT Head Brain wo Cont In Process Unspecified. EDMS 01:21 XRAY Chest (1 view) In Process Unspecified. EDMS 01:21 Pelvis XRAY In Process Unspecified. EDMS 01:39 Lumbar Spine (3 Views) XRAY In Process Unspecified. EDMS 01:39 Sacrum And Coccyx XRAY In Process Unspecified. EDMS 01:[address] rv 04:14 No provider procedures requiring assistance completed. IV discontinued, intact, rv bleeding controlled, No redness/swelling at site. Pressure dressing applied. Administered Medications: 00:27 Drug: Tylenol 1000 mg Route: PO; rv 02:07 Follow up: Response: No adverse reaction rv 03:30 Drug: Magnesium Sulfate 1 grams Route: IVPB; Infused Over: 1 hrs; Site: right rv antecubital; 04:14 Follow up: IV Status: Completed infusion rv Outcome: 03:30 Discharge ordered by . 7 04:15 Discharged to home ambulatory, with family. rv 04:15 Condition: good 04:15 Discharge instructions given to patient, Instructed on discharge instructions, follow up and referral plans. Demonstrated understanding of instructions, follow-up care. 04:15 Patient left the ED. rv Signatures: Dispatcher [employer] EDAnson Eugene, RN RN rv Nav Galindo cl3 Stefan Coto MD MD [facility]
--- NOTE | 2019-12-04 03:31 | EDPHYS ---
Physician Documentation [facility] Name: Dahlia Reyes Age: 84 yrs Sex: Female : 1935 Arrival Date: 12/03/2019 Time: 23:30 Bed 2 Private MD: ED Physician Stefan Coto HPI: 12/03 00:00 This 84 yrs old Female presents to ER via EMS with complaints of Fall Injury. mh7 00:00 Details of fall: The patient fell from an upright position, while walking. Onset: The 7 symptoms/episode began/occurred just prior to arrival, today. Associated injuries: The patient sustained injury to the head, contusion, hematoma, pain, swelling, injury to the low back, pain. Severity of symptoms: At their worst the symptoms were moderate, just prior to arrival, in the emergency department the symptoms have improved, moderately. Historical: - Allergies: 12/02 23:42 No Known Allergies; rv - Home Meds: 23:42 alendronate 70 mg Oral tab once wkly [Active]; amlodipine 10 mg tab once daily rv [Active]; carvedilol 12.5 mg Oral tab 2 times per day [Active]; furosemide 40 mg Oral tab 1 tab once daily [Active]; levothyroxine 25 mcg tab 1 tab once daily [Active]; metformin 1,000 mg Oral tab 2 times per day [Active]; Novolog 100 unit/mL Sub-Q soln 10 units [Active]; simvastatin 20 mg Oral tab 1 tab once daily [Active]; trelegy inhaler [Active]; - PMHx: 23:42 COPD; Diabetes - IDDM; Diabetes - NIDDM; High Cholesterol; Hypertension; rv - PSHx: 23:42 None; rv - Family history: is not pertinent. - Immunization history: Last tetanus immunization: unknown. - Social history:: Smoking status: Patient denies any tobacco usage or history of. ROS: 12/03 00:00 Constitutional: Negative for fever, chills, and weight loss, Eyes: Negative for injury, mh7 pain, redness, and discharge, ENT: Negative for injury, pain, and discharge, Neck: Negative for injury, pain, and swelling, Cardiovascular: Negative for chest pain, palpitations, and edema, Respiratory: Negative for shortness of breath, cough, wheezing, and pleuritic chest pain, Abdomen/GI: Negative for abdominal pain, nausea, vomiting, diarrhea, and constipation, : Negative for injury, bleeding, discharge, and swelling, MS/Extremity: Negative for injury and deformity, Skin: Negative for injury, rash, and discoloration, Neuro: Negative for headache, weakness, numbness, tingling, and seizure, Psych: Negative for depression, anxiety, suicide ideation, homicidal ideation, and hallucinations, Allergy/Immunology: Negative for hives, rash, and allergies, Endocrine: Negative for neck swelling, polydipsia, polyuria, polyphagia, and marked weight changes, Hematologic/Lymphatic: Negative for swollen nodes, abnormal bleeding, and unusual bruising. Exam: 00:00 Constitutional: This is a well developed, well nourished patient who is awake, alert, mh7 and in no acute distress. 00:00 Eyes: Pupils equal round and reactive to light, extra-ocular motions intact. Lids and lashes normal. Conjunctiva and sclera are non-icteric and not injected. Cornea within normal limits. Periorbital areas with no swelling, redness, or edema. Neck: Trachea midline, no thyromegaly or masses palpated, and no cervical lymphadenopathy. Supple, full range of motion without nuchal rigidity, or vertebral point tenderness. No Meningismus. Chest/axilla: Normal chest wall appearance and motion. Nontender with no deformity. No lesions are appreciated. Cardiovascular: Regular rate and rhythm with a normal S1 and S2. No gallops, murmurs, or rubs. Normal PMI, no JVD. No pulse deficits. Respiratory: Lungs have equal breath sounds bilaterally, clear to auscultation and percussion. No rales, rhonchi or wheezes noted. No increased work of breathing, no retractions or nasal flaring. Abdomen/GI: Soft, non-tender, with normal bowel sounds. No distension or tympany. No guarding or rebound. No evidence of tenderness throughout. 00:00 Skin: Warm, dry with normal turgor. Normal color with no rashes, no lesions, and no evidence of cellulitis. MS/ Extremity: Pulses equal, no cyanosis. Neurovascular intact. Full, normal range of motion. Neuro: Awake and alert, GCS 15, oriented to person, place, time, and situation. Cranial nerves II-XII grossly intact. Motor strength 5/5 in all extremities. Sensory grossly intact. Cerebellar exam normal. Normal gait. Psych: Awake, alert, with orientation to person, place and time. Behavior, mood, and affect are within normal limits. 00:00 Head/face: Noted is hematoma, that is mild, of the right side of the back of head. 00:00 Back: pain, that is moderate, of the lumbar area and sacrum, ROM is normal, normal spinal alignment noted, CVA tenderness, is absent, vertebral tenderness, is appreciated at lumbar area, muscle spasm, is not present. 01:12 ECG was reviewed by the Attending Physician. [facility] Vital Signs: 12/02 23:39 BP 179 / 65; Pulse 65; Resp 16; Temp 97.8; Pulse Ox 100% ; Weight 54.43 kg; Height 5 rv ft. 3 in. (160.02 cm); Pain 4/10; 12/03 00:28 BP 162 / 66; Pulse 62; Resp 15; Pulse Ox 99% on R/A; rv 01:30 BP 151 / 58; Pulse 61; Resp 18; Pulse Ox 99% on R/A; rv 02:48 BP 143 / 53; Pulse 68; Resp 16; Pulse Ox 97% on R/A; rv 12/02 23:39 Body Mass Index 21.26 (54.43 kg, 160.02 cm) rv Esme Coma Score: 12/02 23:39 Eye Response: spontaneous(4). Verbal Response: oriented(5). Motor Response: obeys rv commands(6). Total: 15. Trauma Score (Adult): 23:39 Eye Response: spontaneous(1); Verbal Response: oriented(1); Motor Response: obeys rv commands(2); Systolic BP: > 89 mm Hg(4); Respiratory Rate: 10 to 29 per min(4); Esme Score: 15; Trauma Score: 12 MDM: 23:[address] [facility] 12/03 03:27 Differential diagnosis: abrasion, closed head injury, contusion, fracture, sprain, [facility] strain. Data reviewed: vital signs, nurses notes, old medical records, lab test result(s), cardiac enzymes, CBC, electrolytes, urinalysis, EKG, radiologic studies, CT scan, plain films. Data interpreted: monitoring tech: rate is 68 beats/min, rhythm is normal sinus rhythm, regular, Interpretation: normal rate, normal rhythm, Pulse oximetry: on room air is 97 %. Interpretation: normal. Counseling: I had a detailed discussion with the patient and/or guardian regarding: the historical points, exam findings, and any diagnostic results supporting the discharge/admit diagnosis, the presence of at least one elevated blood pressure reading (>120/80) during this emergency department visit, lab results, radiology results, to return to the emergency department if symptoms worsen or persist or if there are any questions or concerns that arise at home. 12/03 00:00 Order name: Basic Metabolic Panel [facility] 12/03 00:00 Order name: CBC with Diff [facility] 12/03 00:00 Order name: LFT's [facility] 12/03 00:00 Order name: Magnesium; Complete Time: 01:12 [facility] 12/03 00:00 Order name: NT PRO-BNP; Complete Time: 01:12 [facility] 12/03 00:00 Order name: PT-INR; Complete Time: 01:12 [facility] 12/03 00:00 Order name: Troponin (emerg Dept Use Only); Complete Time: 01:12 [facility] 12/03 00:00 Order name: XRAY Chest (1 view) [facility] 12/03 00:00 Order name: Pelvis XRAY [facility] 12/03 00:00 Order name: Lumbar Spine (3 Views) XRAY [facility] 12/03 00:00 Order name: Sacrum And Coccyx XRAY [facility] 12/03 00:02 Order name: Basic Metabolic Panel; Complete Time: 01:12 [facility] 12/03 00:02 Order name: CBC with Automated Diff; Complete Time: 01:12 [facility] 12/03 00:03 Order name: Liver (Hepatic) Function; Complete Time: 01:12 [facility] 12/03 00:00 Order name: EKG; Complete Time: 00:04 [facility] 12/03 00:00 Order name: Cardiac monitoring; Complete Time: 00:32 [facility] 12/03 00:00 Order name: EKG - Nurse/Tech; Complete Time: 00:29 [facility] 12/03 00:00 Order name: IV Saline Lock; Complete Time: 00:29 [facility] 12/03 00:00 Order name: Labs collected and sent; Complete Time: 00:29 [facility] 12/03 00:00 Order name: O2 Per Protocol; Complete Time: 00: 7 12/03 00:00 Order name: O2 Sat Monitoring; Complete Time: : 7 12/03 00:00 Order name: CT Head Brain wo Cont mh7 EC:12 Rate is 62 beats/min. Rhythm is regular. QRS [place] is Normal. IA interval is normal. QRS mh7 interval is normal. QT interval is normal. No Q waves. T waves are Normal. No ST changes noted. Clinical impression: Normal ECG. Administered Medications: 00:27 Drug: Tylenol 1000 mg Route: PO; rv 02:07 Follow up: Response: No adverse reaction rv 03:30 Drug: Magnesium Sulfate 1 grams Route: IVPB; Infused Over: 1 hrs; Site: right rv antecubital; 04:14 Follow up: IV Status: Completed infusion rv Disposition: 12/04/19 03:30 Discharged to Home. Impression: Fall-Mechanical, Contusion of unspecified part of head, Contusion of lower back and pelvis. - Condition is Stable. - Discharge Instructions: Back Injury Prevention, [id number], Back Pain, Adult, [id number], Community-Acquired Pneumonia, Adult, [id number], Fall Prevention in the Home, [id number], Head Injury, Adult, [id number]. - Medication Reconciliation Form, Thank You Letter, Antibiotic Education, Prescription Opioid Use form. - Follow up: Private Physician; When: 1 - 2 days; Reason: Worsening of condition, Recheck today's complaints, Re-evaluation by your physician. - Problem is an ongoing problem. - Symptoms have improved. Signatures: Dispatcher [employer] EDAnson Eugene RN RN rv Stefan Coto MD MD mh7 Corrections: (The following items were deleted from the chart) 04:15 03:30 12/04/2019 03:30 Discharged to Home. Impression: Fall-Mechanical; Contusion of rv unspecified part of head; Contusion of lower back and pelvis. Condition is Stable. Forms are Medication Reconciliation Form, Thank You Letter, Antibiotic Education, Prescription Opioid Use. Follow up: Private Physician; When: 1 - 2 days; Reason: Worsening of condition, Recheck today's complaints, Re-evaluation by your physician. Problem is an ongoing problem. Symptoms have improved. mh7
[2019-12-04] MEDS ORDERED: Magnesium Sulfate 2gm IVPB 2 G/50 ML BAG IV ONE (03:32)
[2019-12-04 04:22] VITALS: TEMP 97.8
[2019-12-04 04:26] VITALS: BP 143/53; O2SAT 97
--- NOTE | 2019-12-04 19:57 | RAD REPORT ---
EXAM DESCRIPTION: XR Sacrum and Coccyx, 2 or more Views CLINICAL HISTORY: The patient is 84 years old and is Female; fall pain TECHNIQUE: Frontal and lateral views of the sacrum and coccyx. COMPARISON: No relevant prior studies available. FINDINGS: SACRUM/COCCYX: Unremarkable as visualized. No acute fracture. VERTEBRAE: Visualized lumbar vertebrae are unremarkable. SOFT TISSUES: Unremarkable. IMPRESSION: Negative sacrum and coccyx radiographs. Electronically signed by: Tari Gates MD 12/04/2019 3:11 AM CDT Due to temporary technical issues with the PACS/Fluency reporting system, reports are being signed by the in house radiologist without review as a courtesy to ensure prompt reporting. The interpreting radiologist is fully responsible for the content of the report.
--- NOTE | 2019-12-04 19:58 | RAD REPORT ---
EXAM DESCRIPTION: XR Lumbosacral Spine, 2 or 3 Views CLINICAL HISTORY: The patient is 84 years old and is Female; fall pain TECHNIQUE: Frontal and lateral views of the lumbar spine and sacrum. COMPARISON: No relevant prior studies available. FINDINGS: VERTEBRAE: Evidence of vertebroplasty at L1 is noted. Chronic compression deformity of t he superior endplate of L2 is noted. Remaining vertebral body heights are maintained. Normal alignm ent. SACRUM/COCCYX: Unremarkable as visualized. No acute fracture. DISC SPACES: Minimal intervertebral disc space narrowing with facet arthropathy is present. SOFT TISSUES: Unremarkable. VASCULATURE: Extensive atherosclerosis of the vasculature is noted. IMPRESSION: No acute findings in the lumbar spine. Electronically signed by: Tari Gates MD 12/04/2019 3:10 AM CDT Due to temporary technical issues with the PACS/Fluency reporting system, reports are being signed by the in house radiologist without review as a courtesy to ensure prompt reporting. The interpreting radiologist is fully responsible for the content of the report.
--- NOTE | 2019-12-04 19:59 | RAD REPORT ---
EXAM DESCRIPTION: XR Pelvis, 1 or 2 Views CLINICAL HISTORY: The patient is 84 years old and is Female; BLUNT TRAUMA pain TECHNIQUE: Frontal view of the pelvis. COMPARISON: No relevant prior studies available. FINDINGS: BONES/JOINTS: The femoral heads are well located. The SI joints and pubic sepsis are intact witho ut evidence of diastases. No acute fracture. No dislocation. SOFT TISSUES: Unremarkable. VASCULATURE: Atherosclerosis of the vasculature is present. IMPRESSION: No acute findings in the pelvis. Electronically signed by: Tari Gates MD 12/04/2019 3:09 AM CDT Due to temporary technical issues with the PACS/Fluency reporting system, reports are being signed by the in house radiologist without review as a courtesy to ensure prompt reporting. The interpreting radiologist is fully responsible for the content of the report.
--- NOTE | 2019-12-04 20:00 | RAD REPORT ---
EXAM DESCRIPTION: XR Sacrum and Coccyx, 2 or more Views CLINICAL HISTORY: The patient is 84 years old and is Female; fall pain TECHNIQUE: Frontal and lateral views of the sacrum and coccyx. COMPARISON: No relevant prior studies available. FINDINGS: SACRUM/COCCYX: Unremarkable as visualized. No acute fracture. VERTEBRAE: Visualized lumbar vertebrae are unremarkable. SOFT TISSUES: Unremarkable. IMPRESSION: Negative sacrum and coccyx radiographs. Electronically signed by: Tari Gates MD 12/04/2019 3:11 AM CDT Due to temporary technical issues with the PACS/Fluency reporting system, reports are being signed by the in house radiologist without review as a courtesy to ensure prompt reporting. The interpreting radiologist is fully responsible for the content of the report.
--- NOTE | 2019-12-04 20:02 | RAD REPORT ---
EXAM DESCRIPTION: XR Chest, 1 View CLINICAL HISTORY: The patient is 84 years old and is Female; fall pain TECHNIQUE: Frontal view of the chest. COMPARISON: No relevant prior studies available. FINDINGS: LUNGS: Subtle opacity within the left lower lobe is present. The lungs are otherwise clear. PLEURAL SPACE: Unremarkable. No pneumothorax. HEART: Unremarkable. No cardiomegaly. MEDIASTINUM: Unremarkable. BONES/JOINTS: Degenerative change of the bones is noted. OTHER FINDINGS: The patient is slightly rotated. IMPRESSION: Subtle opacity in left lower lobe which may be secondary to atelectasis versus developing infiltra te. Electronically signed by: Tari Gates MD 12/04/2019 3:09 AM CDT Due to temporary technical issues with the PACS/Fluency reporting system, reports are being signed by the in house radiologist without review as a courtesy to ensure prompt reporting. The interpreting radiologist is fully responsible for the content of the report.
--- NOTE | 2019-12-05 07:47 | EKG ---
Test Date: 2019-12-04 Test Time: 00:18:33 Technical Research Scientist: RV MEASUREMENT RESULTS: Intervals: Rate: 62 CO: 154 QRSD: 86 QT: 438 QTc: 444 [place]: P: 24 CO: 154 QRS: -4 T: 25 INTERPRETIVE STATEMENTS: Normal sinus rhythm Normal ECG Compared to ECG 10/06/2018 10:26:05 ST (T wave) deviation no longer present Possible ischemia no longer present Electronically Signed On 12-05-19 07:44:47 CDT by Medardo Nickerson
== END 2019-12-04 04:15 | disposition home or self-care (01) ==
LOC: ER 23:24
DX: S00.93XA Contusion of unspecified part of head, initial encounter (principal); S30.0XXA Contusion of lower back and pelvis, initial encounter; W19.XXXA Unspecified fall, initial encounter; Y93.01 Activity, walking, marching and hiking; Y92.9 Unspecified place or not applicable; Z79.4 Long term (current) use of insulin; I10 Essential (primary) hypertension; E11.9 Type 2 diabetes mellitus without complications; J44.9 Chronic obstructive pulmonary disease, unspecified; E78.00 Pure hypercholesterolemia, unspecified
CPT/HCPCS: 96365; 93005; 85025; 80048; 36415; 83735; 85610; 80076; 84484; 83880; 70450; 71045; 72100; 72220; 72170; 99285; J3475

== ENCOUNTER 2020-02-01 14:08 | Emergency (ER) | payer OTHER ==
--- OUTSIDE RECORDS SUMMARY | 2020-02-01 14:10 | XMS REPORT | Continuity of Care Document ---
:1935 Author Organization [facility] t Address 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 Medications Ordered Filled Start Stop Current Ordering Indication Dosage Frequency Signature Comments Components Source Medication Medication Date Date Medication? Clinician (SIG) Name Name Fluticasone Fluticasone 2017-06 Yes Andrew [address] [facility] Propionate Propionate 2-14 Alexander each [place] - 00:00: nostril Memoria 00 l [facility] ent [facility] Ventolin Ventolin 2017-06 Yes Andrew [address] [facility] HFA HFA 0-16 [facility] needed [facility] - [facility]: Memoria 00 l [facility] ent [facility] Potassium Potassium Yes Andrew as [facility] Chloride Chloride Alexander directed [facility] Alendronate Alendronate Yes Andrew [address] [facility] Sodium S[address] [facility] l [facility] ent [facility] Benazepril Benazepril Yes Andrew [address] [facility] HCl HCl Alexander [facility] l [facility] ent [facility] Carvedilol Carvedilol Yes Andrew as [facility] Alexander directed [facility] Megestrol Megestrol Yes Andrew [address] Acetate Acetate Alexander [facility] ent [facility] Albuterol Albuterol Yes Andrew [address] [facility] Sulfate HFA Sulfate HFA [facility] ent [facility] Amlodipine Amlodipine Yes Andrew [address] [facility] Besylate Besylate Alexander [facility] ent [facility] NovoLog Mix NovoLog Mix Yes Andrew [address] [facility] 70/30 70/30 Alexander [facility] - Flexpen Flexpen [facility] Metformin Metformin Yes Andrew [address] [facility] HCl HCl Alexander with a [facility] - meal [facility] Simvastatin Simvastatin Yes Andrew [address] [facility] Alexander in the [facility] - evening [facility] Lasix Lasix Yes Andrew [address] [facility] Procedures This patient has no known procedures. Encounters Start End Encounter Admission Attending Care Care Encounter Source Date/Time Date/Time Type Type Clinicians Facility Department ID 2019-11-15 2019-11-15 Telephone [facility] [id number] 00:00:00 00:00:00 Tammy Leung [id number] [place] [id number] Professio [phone] [address] 2019-10-11 2019-10-11 Refill [facility] [id number] 00:00:00 00:00:00 Kristen [employer] [id number] [place] [id number] Professio [phone] nal 044 [facility] 2019-09-30 2019-09-30 Letter [facility] [id number] 00:00:00 00:00:00 (Out) Tammy Leung [id number] [place] [id number] Professio [phone] [address] 2019-09-30 2019-09-30 Refill [facility] [id number] 00:00:00 00:00:00 Tammy Leung [id number] [place] [id number] Professio [phone] [address] 2019-07-14 2019-07-14 Telephone [facility] [id number] 00:00:00 00:00:00 [facility] [employer] [id number] [place] [id number] [facility] [phone] Primary & 059 [facility] Care 2019-03-18 2019-03-18 Refill [place], [facility] [id number] 00:00:00 00:00:00 [facility] [id number] [place] [id number] Professio [phone] [place] [address] [address] 2019-03-15 2019-03-15 Refill [place], [facility] [id number] 00:00:00 00:00:00 [facility] [id number] [place] [id number] Professio [phone] [place] [address] [address] 2019-03-04 2019-03-04 Refill [place], [facility] [id number] 00:00:00 00:00:00 [facility] [id number] [place] [id number] Professio [phone] [place] [address] [address] 2019-02-01 2019-02-[address] [facility] [id number] 00:00:00 00:00:00 Tammy [place] [id number] [place] [id number] Professio [phone] [address] 2019-01-18 2019-01-18 Orders Doctor BUTLER [id number] 00:00:00 00:00:00 Only Unassigned, GENESIS [id number] Mila Doce [facility] [phone] [id number] 2018-11-18 2018-11-18 [facility] [id number] [facility] [address] 11:18:00 11:18:00 [facility] 2018-10-11 2018-10-11 [facility] [id number] [address] 10:00:00 10:00:00 [facility] 2018-06-11 2018-06-11 [facility] [id number] 10:15:00 10:15:00 [facility] Outpati ent Clinics 2018-04-13 2018-04-13 [facility] [id number] 14:05:00 14:05:00 [facility] Outpati ent Clinics 2018-03-31 2018-03-31 [facility] [id number] 15:00:00 15:00:00 [facility] Medicine Outpati ent Clinics 2018-02-09 2018-02-09 [facility] [id number] [facility] 14:00:00 14:00:00 [facility] Results This patient has no known results.
[2020-02-01 16:06] LABS: Urine Blood 2+ (NEG); Urine Glucose NEGATIVE (NEG); Urine Protein 3+ (NEG); Urine Specific Gravity 1.025 (1.005-1.030)
[2020-02-01 16:12] LABS: Urine Bacteria LOADED /HPF (<20); Urine Culture Reflex Order REFLEXED; Urine RBC <5 /HPF (NONE SEEN)
[2020-02-01] MEDS ORDERED: CEFTRIAXONE/SWI 1gm 1 GM/10 ML SYR ONE (16:58)
[2020-02-01] MEDS ORDERED: NA CHLORIDE 0.9% 250 ML ONE (16:58)
[2020-02-01 17:04] LABS: Basophils % 0.4 % (0-1.3); Hematocrit 30.7 % (36.0-45.0); Lymphocytes % 11.5 % (15.3-44.8); MPV 10.6 fL (7.6-11.3); RBC Red Blood Cell Count 3.72 M/uL (3.86-4.86)
[2020-02-01 17:19] LABS: ALT/SGPT 11 U/L (12-78); AST/SGOT 16 U/L (15-37); Albumin 2.8 g/dL (3.4-5.0); Alkaline Phosphatase 63 U/L (45-117); BUN Blood Urea Nitrogen 42 mg/dL (7-18); Bicarbonate 23 mmol/L (21-32); Bilirubin Direct < 0.1 mg/dL (0-0.2); Bilirubin Total 0.2 mg/dL (0.2-1.0); Glucose Level 209 mg/dL (74-106); Lipase 34 U/L (73-393); Potassium 4.6 mmol/L (3.5-5.1); Protein, Total 6.2 g/dL (6.4-8.2); Sodium Level 137 mmol/L (136-145)
[2020-02-01] MEDS ORDERED: HYDRALAZINE HCL 20 MG/ML VIAL ONE (17:44)
--- NOTE | 2020-02-01 18:13 | RAD REPORT ---
EXAM DESCRIPTION: CT - Head Brain Wo Cont - 02/01/2020 5:36 pm CLINICAL HISTORY: HEADACHE COMPARISON: Head Brain Wo Cont dated 12/04/2019 TECHNIQUE: Axial 5 mm thick images of the head were obtained without IV contrast. All CT scans are performed using dose optimization technique as appropriate and may include automated exposure control or mA/KV adjustment according to patient size. FINDINGS: No intracranial hemorrhage, mass, edema or shift of mid-line structures. No acute infarcti on changes seen. No cortical edema or sulcal effacement. Moderate atrophy and moderate chronic ischem ic changes are present matching comparison. Ventricles are in proportion. Arterial and physiologic ca lcifications are present. Mastoid air cells and visualized portions of the paranasal sinuses are clear. No acute bony findings. IMPRESSION: Moderate severity atrophy and chronic ischemic change similar to December 03 imaging. No hemorrhage or acute intracranial finding identified.
--- NOTE | 2020-02-01 19:04 | ER ---
Nurse's Notes [facility] Name: Dahlia Reyes Age: 84 yrs Sex: Female : 1935 Arrival Date: 02/01/2020 Time: 14:10 Bed 23 Private MD: Diagnosis: Urinary tract infection, site not specified;Hypertensive heart and chronic kidney disease Presentation: 01/31 14:33 Chief complaint: Patient states: Headache and sweaty last night. Took Tylenol, felt ca1 better. BP was high in the morning, but went down after taking BP meds. States, "I still have a headache, and may have a yeast infection". Reports burning with urination and urinary frequency. Coronavirus screen: Client denies travel out of the [place] in the last 14 days. At this time, the client does not indicate any symptoms associated with coronavirus-19. Ebola Screen: Patient negative for fever greater than or equal to 101.5 degrees Fahrenheit, and additional compatible Ebola Virus Disease symptoms Patient denies exposure to infectious person. Patient denies travel to an Ebola-affected area in the 21 days before illness onset. No symptoms or risks identified at this time. Initial Sepsis Screen: Does the patient meet any 2 criteria? No. Patient's initial sepsis screen is negative. Does the patient have a suspected source of infection? No. Patient's initial sepsis screen is negative. Risk Assessment: Do you want to hurt yourself or someone else? Patient reports no desire to harm self or others. Onset of symptoms was February 01, 2020. 14:33 Method Of Arrival: Ambulatory ca1 14:33 Acuity: NOE 3 ca1 Historical: - Allergies: 14:38 No Known Allergies; ca1 - Home Meds: 14:38 alendronate 70 mg Oral TG24 once wkly [Active]; amlodipine 10 mg TG24 once daily ca1 [Active]; benazepril Oral [Active]; carvedilol 12.5 mg Oral TG24 2 times per day [Active]; furosemide 40 mg Oral TG24 1 tab once daily [Active]; levothyroxine 25 mcg TG24 1 tab once daily [Active]; metformin 1,000 mg Oral TG24 2 times per day [Active]; Novolog 100 unit/mL Sub-Q soln 10 units [Active]; simvastatin 20 mg Oral TG24 1 tab once daily [Active]; trelegy inhaler [Active]; - PMHx: 14:38 COPD; Diabetes - IDDM; Diabetes - NIDDM; High Cholesterol; Hypertension; ca1 - Immunization history:: Adult Immunizations up to date. - Social history:: Smoking status: Patient denies any tobacco usage or history of. Screenin:01 Abuse screen: Denies threats or abuse. Denies injuries from another. Nutritional jl7 screening: No deficits noted. Tuberculosis screening: No symptoms or risk factors identified. Fall Risk IV access (20 points). Total Beíntez Fall Scale indicates No Risk (0-24 pts). Assessment: 16:30 General: Appears in no apparent distress. uncomfortable, Behavior is calm, cooperative, jl7 appropriate for age. Pain: Denies pain. Neuro: Level of Consciousness is awake, alert, obeys commands, Oriented to person, place, time, situation. Cardiovascular: Denies chest pain, shortness of breath, Patient's skin is warm and dry. Rhythm is sinus bradycardia. Respiratory: Airway is patent Respiratory effort is even, unlabored, Respiratory pattern is regular, symmetrical. GI: No signs and/or symptoms were reported involving the gastrointestinal system. : Reports burning with urination, pain in suprapubic area Pain is 6 out of 10 on a pain scale. urinary frequency. Derm: Skin is pink, warm \\T\\ dry. 17:45 Reassessment: Pt returned from CT. jl7 18:25 Reassessment: Patient appears in no apparent distress at this time. No changes from jl7 previously documented assessment. Patient and/or family updated on plan of care and expected duration. Pain level reassessed. Patient is alert, oriented x 3, equal unlabored respirations, skin warm/dry/pink. 18:55 Reassessment: ERP at bedside discussing results and POC. jl7 Vital Signs: 14:33 BP 168 / 84; Pulse 52; Resp 15 S; Temp 97.5(TE); Pulse Ox 100% on R/A; Weight 54.43 kg ca1 (R); Height 5 ft. 2 in. (157.48 cm) (R); 17:01 BP 215 / 77; Pulse 49; Resp 17; Pulse Ox 100% ; Pain 6/10; jl7 17:50 BP 223 / 71; Pulse 47; Resp 17; Pulse Ox 100% ; jl7 18:25 BP 206 / 76; Pulse 54; Resp 17; Pulse Ox 100% ; jl7 18:57 BP 173 / 59; Pulse 65; Resp 14; Pulse Ox 100% ; jl7 14:33 Body Mass Index 21.95 (54.43 kg, 157.48 cm) ca1 ED Course: 14:10 Patient arrived in ED. ds1 14:36 Triage completed. ca1 14:38 Arm band placed on right wrist. ca1 16:24 Vern Villeda PA is PHCP. cp 16:24 Darren Dave MD is Attending Physician. cp 16:25 Liam Cancino RN is Primary Nurse. jl7 16:45 Patient has correct armband on for positive identification. Placed in gown. Bed in low jl7 position. Call light in reach. Side rails up X2. monitor tech on. Pulse ox on. NIBP on. 16:45 Warm blanket given. jl7 16:58 Initial lab(s) drawn, by mn, sent to lab. Inserted saline lock: 20 gauge in right jl7 forearm, using aseptic technique. Blood collected. 17:36 CT Head Brain wo Cont In Process Unspecified. EDMS 18:57 Urine Culture Sent. jl7 19:15 No provider procedures requiring assistance completed. IV discontinued, intact, jl7 bleeding controlled, No redness/swelling at site. Pressure dressing applied. Administered Medications: 16:57 Drug: Rocephin 1 grams Route: IV; Rate: calculated rate; Site: right forearm; jl7 17:00 Follow up: Response: No adverse reaction; IV Status: Completed infusion jl7 16:57 Drug: NS 0.9% 250 ml Route: IV; Rate: bolus; Site: right forearm; jl7 17:20 Follow up: Response: No adverse reaction; IV Status: Completed infusion; IV Intake: jl7 250ml 17:52 Drug: hydrALAZINE 10 mg Route: IV; Rate: calculated rate; Site: right forearm; jl7 17:53 Follow up: IV Status: Completed infusion jl7 18:25 Follow up: Response: Blood pressure is unchanged jl7 18:18 Drug: hydrALAZINE 10 mg Route: IV; Rate: calculated rate; Site: right forearm; jl7 18:19 Follow up: IV Status: Completed infusion jl7 19:01 Follow up: Response: No adverse reaction; Blood pressure is lowered jl7 19:01 Not Given (Physician Discretion): HydrALAZINE 25 mg PO once jl7 19:06 Drug: amLODIPine 10 mg Route: PO; jl7 19:16 Follow up: Response: Medication administered at discharge. 7 Intake: 17:20 IV: 250ml; Total: 250ml. 7 Outcome: 19:04 Discharge ordered by . cp 19:15 Discharged to home ambulatory. jl7 19:15 Condition: stable 19:15 Discharge instructions given to patient, Instructed on discharge instructions, follow up and referral plans. medication usage, Demonstrated understanding of instructions, follow-up care, medications, Prescriptions given X 1. 19:15 Patient left the ED. 7 Signatures: Dispatcher [employer] [facility] Karon Cain ds1 Vern Villeda PA PA cp Leal, Jahala, RN RN jl7 Marisel Donaldson RN RN ca1
--- NOTE | 2020-02-01 19:04 | EDPHYS ---
Physician Documentation [facility] Name: Dahlia Reyes Age: 84 yrs Sex: Female : 1935 Arrival Date: 02/01/2020 Time: 14:10 Bed 23 Private MD: ED Physician Darren Dave HPI: 01/31 15:50 This 84 yrs old Female presents to ER via Ambulatory with complaints of cp Chills, Doesn't Feel Well. 15:50 Associated signs and symptoms: Pertinent positives: headache, chills and sweats, cp urinary symptoms. 15:50 Onset: The symptoms/episode began/occurred last night. cp 19:01 Patient reports running out of Amlodipine blood pressure medication. cp Historical: - Allergies: 14:38 No Known Allergies; ca1 - Home Meds: 14:38 alendronate 70 mg Oral TG24 once wkly [Active]; amlodipine 10 mg TG24 once daily ca1 [Active]; benazepril Oral [Active]; carvedilol 12.5 mg Oral TG24 2 times per day [Active]; furosemide 40 mg Oral TG24 1 tab once daily [Active]; levothyroxine 25 mcg TG24 1 tab once daily [Active]; metformin 1,000 mg Oral TG24 2 times per day [Active]; Novolog 100 unit/mL Sub-Q soln 10 units [Active]; simvastatin 20 mg Oral TG24 1 tab once daily [Active]; trelegy inhaler [Active]; - PMHx: 14:38 COPD; Diabetes - IDDM; Diabetes - NIDDM; High Cholesterol; Hypertension; ca1 - Immunization history:: Adult Immunizations up to date. - Social history:: Smoking status: Patient denies any tobacco usage or history of. ROS: 15:55 Constitutional: Positive for chills, Negative for fever, poor PO intake. cp 15:55 Eyes: Negative for injury, pain, redness, and discharge. cp 15:55 Cardiovascular: Negative for chest pain. Exam: 16:00 Constitutional: The patient appears in no acute distress, alert, awake, cp non-diaphoretic, non-toxic, well developed, well nourished. 16:00 Head/Face: Normocephalic, atraumatic. cp 16:00 Eyes: Periorbital structures: appear normal, Conjunctiva: normal, no exudate, no injection, Sclera: no appreciated abnormality, Lids and lashes: appear normal, bilaterally. 16:00 ENT: External ear(s): are unremarkable, Nose: is normal, Mouth: Lips: moist, Oral mucosa: moist, Posterior pharynx: Airway: no evidence of obstruction, patent. 16:00 Neck: ROM/movement: is normal, is supple, without pain, no range of motions limitations. 16:00 Chest/axilla: Inspection: normal. 16:00 Cardiovascular: Rate: bradycardic, Rhythm: regular, Edema: is not appreciated, JVD: is not appreciated. 16:00 Respiratory: the patient does not display signs of respiratory distress, Respirations: normal, no use of accessory muscles, no retractions, labored breathing, is not present, Breath sounds: are clear throughout, no decreased breath sounds. 16:00 Abdomen/GI: Inspection: abdomen appears normal, Palpation: abdomen is soft and non-tender, in all quadrants. 16:00 Back: CVA tenderness, is absent. 16:00 Neuro: Orientation: to person, place \T\ time. Mentation: is normal, Motor: moves all fours, strength is normal. Vital Signs: 14:33 BP 168 / 84; Pulse 52; Resp 15 S; Temp 97.5(TE); Pulse Ox 100% on R/A; Weight 54.43 kg ca1 (R); Height 5 ft. 2 in. (157.48 cm) (R); 17:01 BP 215 / 77; Pulse 49; Resp 17; Pulse Ox 100% ; Pain 6/10; jl7 17:50 BP 223 / 71; Pulse 47; Resp 17; Pulse Ox 100% ; jl7 18:25 BP 206 / 76; Pulse 54; Resp 17; Pulse Ox 100% ; jl7 18:57 BP 173 / 59; Pulse 65; Resp 14; Pulse Ox 100% ; jl7 14:33 Body Mass Index 21.95 (54.43 kg, 157.48 cm) ca1 MDM: 16:30 Patient medically screened. cp 17:00 Differential diagnosis: UTI, pyelonephritis, sepsis, CVA, intracranial bleed, cp hypertensive crisis. 19:03 Data reviewed: vital signs, nurses notes, lab test result(s), radiologic studies, CT cp scan. 19:03 Counseling: I had a detailed discussion with the patient and/or guardian regarding: the cp historical points, exam findings, and any diagnostic results supporting the discharge/admit diagnosis, the presence of at least one elevated blood pressure reading (>120/80) during this emergency department visit, lab results, radiology results, the need for outpatient follow up, an consumer relations specialist, to return to the emergency department if symptoms worsen or persist or if there are any questions or concerns that arise at home. Response to treatment: the patient's symptoms have markedly improved after treatment, VSS. Patient appears non-toxic and in no distress. Blood pressure improved. Will discharge to home for continued monitoring. 01/31 15:46 Order name: Urine Microscopic Only; Complete Time: 16:24 bd 01/31 18:23 Interpretation: Normal except: UWBC LOADED; UBACT LOADED. cp 01/31 15:46 Order name: Urine Dipstick--Ancillary (enter results); Complete Time: 16:24 bd 01/31 16:13 Order name: Urine Culture EDTN 01/31 16:32 Order name: Basic Metabolic Panel; Complete Time: 18:22 cp 01/31 18:22 Interpretation: Normal except: GLUC 209; BUN 42; CRE 2.81; GFR 16. cp 01/31 16:32 Order name: CBC with Diff; Complete Time: 17:16 cp 01/31 17:16 Interpretation: Normal except: RBC 3.72; HGB 10.1; HCT 30.7; PLT 120; RDW 15.4; BILLIE% cp 82.1; LYM% 11.5. 01/31 16:32 Order name: Hepatic Function; Complete Time: 18:22 cp 01/31 16:32 Order name: Lipase; Complete Time: 18:22 cp 01/31 16:32 Order name: Procalcitonin; Complete Time: 18:22 cp 01/31 17:18 Order name: CT Head Brain wo Cont; Complete Time: 18:22 cp 01/31 15:46 Order name: Urine Dipstick-Ancillary (obtain specimen); Complete Time: 15:46 ca1 01/31 16:32 Order name: IV Saline Lock; Complete Time: 16:58 cp 01/31 16:32 Order name: Labs collected and sent; Complete Time: 16:58 cp Administered Medications: 16:57 Drug: Rocephin 1 grams Route: IV; Rate: calculated rate; Site: right forearm; jl7 17:00 Follow up: Response: No adverse reaction; IV Status: Completed infusion jl7 16:57 Drug: NS 0.9% 250 ml Route: IV; Rate: bolus; Site: right forearm; jl7 17:20 Follow up: Response: No adverse reaction; IV Status: Completed infusion; IV Intake: jl7 250ml 17:52 Drug: hydrALAZINE 10 mg Route: IV; Rate: calculated rate; Site: right forearm; jl7 17:53 Follow up: IV Status: Completed infusion jl7 18:25 Follow up: Response: Blood pressure is unchanged jl7 18:18 Drug: hydrALAZINE 10 mg Route: IV; Rate: calculated rate; Site: right forearm; jl7 18:19 Follow up: IV Status: Completed infusion jl7 19:01 Follow up: Response: No adverse reaction; Blood pressure is lowered jl7 19:01 Not Given (Physician Discretion): HydrALAZINE 25 mg PO once 7 19:06 Drug: amLODIPine 10 mg Route: PO; 7 19:16 Follow up: Response: Medication administered at discharge. [facility] Disposition: 02/01 08:11 Co-signature as Attending Physician, Darren Dave MD I agree with the assessment and kdr plan of care. Disposition: 02/01/20 19:04 Discharged to Home. Impression: Urinary tract infection, site not specified, Hypertensive heart and chronic kidney disease. - Condition is Stable. - Discharge Instructions: Hypertension, Urinary Tract Infection, Adult, Managing Your Hypertension. - Prescriptions for Augmentin 875- 125 mg Oral Tablet - take 1 tablet by ORAL route every 12 hours for 10 days; 20 tablet. - Medication Reconciliation Form, Thank You Letter, Antibiotic Education, Prescription Opioid Use form. - Follow up: Private Physician; When: 1 - 2 days; Reason: Recheck today's complaints. - Problem is new. - Symptoms have improved. Signatures: Dispatcher [employer] EDMS Darren Dave MD MD kdr Vern Villeda PA PA cp Leal, Jahala, RN RN jl7 Marisel Donaldson RN RN ca1 Corrections: (The following items were deleted from the chart) 01/31 19:15 19:04 02/01/2020 19:04 Discharged to Home. Impression: Urinary tract infection, site jl7 not specified; Hypertensive heart and chronic kidney disease. Condition is Stable. Forms are Medication Reconciliation Form, Thank You Letter, Antibiotic Education, Prescription Opioid Use. Follow up: Private Physician; When: 1 - 2 days; Reason: Recheck today's complaints. Problem is new. Symptoms have improved. cp
[2020-02-01] MEDS ORDERED: hydroCHLOROthiazide 25 MG TAB ONE (19:08)
[2020-02-01] MEDS ORDERED: AMLODIPINE 10 MG TAB ONE (19:13)
[2020-02-01 19:35] VITALS: TEMP 97.5; O2SAT 100
[2020-02-01 19:41] VITALS: BP 173/59
== END 2020-02-01 19:15 | disposition home or self-care (01) ==
LOC: ER 14:08
DX: N39.0 Urinary tract infection, site not specified (principal); I13.10 Hypertensive heart and chronic kidney disease without heart failure, with stage 1 through stage 4 chronic kidney disease, or unspecified chronic kidney disease; E11.22 Type 2 diabetes mellitus with diabetic chronic kidney disease; N18.9 Chronic kidney disease, unspecified; E78.00 Pure hypercholesterolemia, unspecified; Z79.4 Long term (current) use of insulin
CPT/HCPCS: 87088; 85025; 87086; 80048; 36415; 80076; 83690; 84145; 70450; J0360; J0696; J7050; 81003; 81015; 96365; 96375; 99284

== ENCOUNTER 2020-06-30 14:25 | Emergency (ER) | payer OTHER ==
--- OUTSIDE RECORDS SUMMARY | 2020-06-30 14:27 | XMS REPORT | Continuity of Care Document ---
:1935 Author Organization [facility] t Address [address] [place] [address] Care Team Providers Name Role Phone Josafat [...] heart Memoria disease of disease of [place] coronary coronary ent artery artery Clinics [...] unspecifie Cl inics d whether d whether salvage determiner detention insulin insulin use use Hyperlipid Hyperlipid Problem Active [facility], [facility], [facility] - unspecifie unspecifie Me moria d d l hyperlipid hyperlipid Ou [facility] emia type emia type ent Clinics Cardiac Cardiac Problem Active [facility] arrhythmia arrhythmia [place] - , , Memoria unspecifie unspecifie l d cardiac d cardiac Outp ati arrhythmia arrhythmia en t type type Clinics Stage 3 Stage [address] [facility] chronic chronic [facility] - kidney kidney [facility] Iron Iron Problem Active [facility] deficiency deficiency [place] - 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 Medications Ordered Filled Start Stop Current Ordering Indication Dosage Frequency Signature Comments Components Source Medication Medication Date Date Medication? Clinician (SIG) Name Name Fluticasone Fluticasone 2017-06 Yes Andrew [address] [facility] Propionate Propionate 2-14 Alexander each [place] - 00:00: nostril Memoria 00 l [facility] ent [facility] Ventolin Ventolin 2017-06 Yes Andrew [address] [facility] HFA HFA 0-16 Alexander needed [facility] - 00:00: Memoria 00 l [facility] Potassium Potassium Yes Andrew as [facility] Chloride Chloride Alexander directed [facility] Alendronate Alendronate Yes Andrew [address] [facility] Sodium Sodium [facility] l [facility] Benazepril Benazepril Yes Andrew [address] [address] HCl HCl Alexander [facility] l [facility] Carvedilol Carvedilol Yes Andrew as C [facility] Alexander directed [facility] l [facility] Megestrol Megestrol Yes Andrew [address] Acetate Acetate Alexander [facility] Albuterol Albuterol Yes Andrew [address] [facility] Sulfate HFA Sulfate HFA Alexander needed [facility] l [facility] Amlodipine Amlodipine Yes Andrew [address] [facility] [address] Besylate Besylate [facility] NovoLog Mix NovoLog Mix Yes Andrew [address] 70/30 70/30 Alexander [facility] - Flexpen Flexpen [facility] Metformin Metformin Yes Andrew [address] [facility] [address] HCl HCl Alexander with a [facility] - meal [facility] Simvastatin Simvastatin Yes Andrew [address] [facility] Alexander in the [facility] - evening [facility] Lasix Lasix Yes Andrew [address] [facility] Procedures This patient has no known procedures. Encounters Start End Encounter Admission Attending Care Care Encounter Source Date/Time Date/Time Type Type Clinicians Facility Department ID 2020-05-30 2020-05-30 Refill [facility] [id number] 00:00:00 00:00:00 Tammy Leung [id number] [place] [id number] Professio [phone] [address] 2019-11-15 2019-11-15 Telephone [facility] [id number] 00:00:00 00:00:00 Tammy Leung [id number] [place] [id number] Professio [phone] [address] 2019-10-11 2019-10-11 Refill [facility] [id number] 00:00:00 00:00:00 [facility] [id number] [place] [id number] Professio [phone] [place] [address] [facility] 2019-09-30 2019-09-30 Letter [facility] [id number] 00:00:00 00:00:00 (Out) Ven[place]iomarshaermias [place] [id number] [place] [id number] Professio [phone] [address] 2019-09-30 2019-09-30 Refill [facility] [id number] 00:00:00 00:00:00 Venanciomarshaermias [place] [id number] [place] [id number] Professio [phone] [facility] 2019-07-14 2019-07-14 Telephone [facility] [id number] 00:00:00 00:00:00 [facility] [id number] [place] [id number] [facility] [phone] Primary & 059 Specialty Care 2019-03-18 2019-03-18 Refill [facility] [id number] 00:00:00 00:00:00 [facility] [id number] [place] [id number] Professio [phone] [place] [address] Office Building One 2019-03-15 2019-03-15 [facility] [id number] 00:00:00 00:00:00 [facility] [id number] [place] [id number] Professio [phone] [place] [address] [address] One 2019-03-04 2019-03-04 Refill [facility] [id number] 00:00:00 00:00:00 [facility] [id number] [place] [id number] Professio [phone] [place] [address] Office [address] One 2019-02-01 2019-02-01 Refill [facility] [id number] 00:00:00 00:00:00 [facility] [id number] [place] [id number] Professio [phone] [facility] 2019-01-18 2019-01-18 Orders Doctor LUKE [id number] 00:00:00 00:00:00 Only Unassigned, [facility] [id number] [place] [facility] [id number] 009 2018-11-18 2018-11-18 [facility] [id number] 11:18:00 11:18:00 [facility] Medicine Outpati ent Clinics 2018-10-11 2018-10-11 [facility] [id number] 10:00:00 10:00:00 [facility] Medicine Outpati ent Clinics 2018-06-11 2018-06-11 [facility] [id number] 10:15:00 10:15:00 [facility] Medicine Outpati ent Clinics 2018-04-13 2018-04-13 [facility] [id number] 14:05:00 14:05:00 [facility] Medicine Outpati ent Clinics 2018-03-31 2018-03-31 [facility] [id number] 15:00:00 15:00:00 [facility] Medicine Outpati ent Clinics 2018-02-09 2018-02-09 [facility] [id number] 14:00:00 14:00:00 [facility] Medicine Outpati ent Clinics Results This patient has no known results.
--- OUTSIDE RECORDS SUMMARY | 2020-06-30 14:27 | XMS REPORT | Summary of Care ---
:1935 Author Organization [facility] Address [address] [place] [id number] Care Team Providers Name Role Phone Jose Arriaga DO Client Renewal Specialist Dee Dee Cancino Primary Care Provider Reason for Visit Reason Comments Refill Request Encounter Details Date Type Department Care Team Description 05/30/2020 Refill [facility] Cardiology- Venancio Maurice MD Refill Request [place] [address] [facility] [address] [facility], [address] [place] [address] [place] [address] [phone] Allergies Active Allergy Reactions Severity Noted Date Comments Lisinopril Cough 05/15/2018 Losartan Cough 04/21/2018 documented as of this encounter (statuses as of 06/01/2020) Medications Medication Sig Dispensed Refills Start Date End Date Status CODEINE Take by mouth as 0 Ac tive PHOSPHATE/GUAIFENESIN needed. (VIRTUSSIN AC ORAL) INSULIN ASPART inject 10 Units 0 Active PROT/INSULN ASP under the skin (NOVOLOG MIX 70-30 daily. FLEXPEN SC) MEGESTROL 20 mL. 0 Active ACETATE,MICRONIZED (MEGESTROL ACETATE,MICRO, BULK, MISC) Insulin [place], Use as directed 0 Active Disposable, (NOVOFINE [...] as of this encounter (statuses as of 06/01/2020) Active Problems Problem Noted Date Fluid overload 04/23/2017 Bronchitis, acute 11/17/2016 (HFpEF) heart failure with preserved ejection fraction 11/17/2016 Essential hypertension 11/17/2016 Chronic kidney disease, stage III (moderate) 7 Coronary artery disease involving [place] coronary con ry of [place] heart 11/17/2016 without angina pectoris Type 2 diabetes mellitus without complication, with lo ng-term current use 11/17/2016 of insulin Dyspnea 11/16/2016 documented as of this encounter (statuses as of 06/01/2020) Social History Tobacco Use Types Packs/Day Years Used Date Never Smoker Smokeless Tobacco: Never Used Alcohol Use Drinks/Week oz/Week Comments No rarely Sex Assigned at Date Recorded Not on file documented as of this encounter Last Filed Vital Signs Not on filedocumented in this encounter Plan of Treatment Health Maintenance Due Date Last Done Comments Depression Screening 1947 DTaP,Tdap,and Td Vaccines (1 - 1953 Tdap) Zoster Recombinant Vaccine 1984 (SHINGRIX) (1 of 2) Medicare Wellness Visit 09/17/1999 Osteoporosis Screening 09/17/1999 PNEUMOCOCCAL VACCINES 65+ (1 of 1 09/17/1999 - PPSV23) EYE EXAM 04/29/2018 04/29/2017 HgA1C 05/06/2018 11/03/2017, 11/03/2017 FOOT EXAM 11/03/2018 11/03/2017, 11/03/2017, 11/03/2017 URINE MICROALBUMIN 11/03/2018 11/03/2017, 11/03/2017 INFLUENZA VACCINE (#1) 2020 CREATININE (SERUM) 07/06/2020 07/06/2019, 09/17/2017, 04/24/2017, Additional history exists LDL-C 07/06/2020 07/06/2019, 11/03/2017 documented as of this encounter Results Not on filedocumented in this encounter Visit Diagnoses Diagnosis Bilateral lower extremity edema Edema Mixed hyperlipidemia documented in this encounter Insurance Payer Benefit Plan Subscriber ID Effective Dates Phone Address Type / Group HUMANA - HUMANA GOLD [id number] 2015-Presleah barton Adv MANAGED CHOICE t FFS MEDICARE HUMANA - HUMANA CHOICE [id number] 2019-Prese Medicare Adv MANAGED nt PPO MEDICARE documented as of this encounter
--- NOTE | 2020-06-30 16:33 | RAD REPORT ---
EXAM DESCRIPTION: Fermin Brown (2 Views)06/30/2020 3:58 pm CLINICAL HISTORY: Cough COMPARISON: 2019 FINDINGS: Mild to moderate bilateral reticulonodular opacities. Lungs are hyperaerated The heart is normal size IMPRESSION: Mild to moderate bilateral reticulonodular opacities may represent an atypical pneumonia
[2020-06-30 18:36] LABS: SARS-COV-2 RT PCR NEGATIVE (NEGATIVE)
[2020-06-30] MEDS ORDERED: LIDOCAINE 1% MPF 5 ML VIAL ONE (18:38)
[2020-06-30] MEDS ORDERED: CEFTRIAXONE 1000 MG/VIAL ONE (18:39)
[2020-06-30] MEDS ORDERED: dexAMETHasone 10 MG/ML VIAL ONE (18:39)
[2020-06-30] MEDS ORDERED: AZITHROMYCIN 250 MG TAB ONE (18:39)
--- NOTE | 2020-06-30 18:40 | EDPHYS ---
Physician Documentation [facility] Name: Dahlia Reyes Age: 84 yrs Sex: Female : 1935 Arrival Date: 06/30/2020 Time: 14:27 Bed 18 Private MD: ED Physician Vern Arias HPI: 06/30 18:17 This 84 yrs old Female presents to ER via Ambulatory with complaints of Cough. pm1 18:17 The patient or guardian reports cough, with productive sputum, that is white. Onset: pm1 The symptoms/episode began/occurred 10 day(s) ago. Severity of symptoms: in the emergency department the symptoms are unchanged. Modifying factors: The symptoms are alleviated by nothing, the symptoms are aggravated by nothing. Associated signs and symptoms: Pertinent negatives: chest pain, diarrhea, ear ache, fever, nausea, rhinorrhea, sore throat, vomiting, shortness of breath. The patient has experienced similar episodes in the past, several times, usually gets pneumonia around this time of year. Patient with a history of COPD. Patient would like to be swabbed for covid. Historical: - Allergies: 15:04 No Known Allergies; ss - PMHx: 15:04 COPD; High Cholesterol; Diabetes - IDDM; Hypertension; ss - Immunization history:: Adult Immunizations up to date. - Social history:: Smoking status: Patient denies any tobacco usage or history of. ROS: 18:17 Constitutional: Negative for fever, chills, and weight loss, ENT: Negative for injury, pm1 pain, and discharge, Neck: Negative for injury, pain, and swelling, Cardiovascular: Negative for chest pain, palpitations, and edema. 18:17 Abdomen/GI: Negative for abdominal pain, nausea, vomiting, diarrhea, and constipation, Back: Negative for injury and pain, MS/Extremity: Negative for injury and deformity, Skin: Negative for injury, rash, and discoloration, Neuro: Negative for headache, weakness, numbness, tingling, and seizure. 18:17 Respiratory: Positive for cough, with white sputum, Negative for dyspnea on exertion, shortness of breath, wheezing. Exam: 18:17 Constitutional: This is a well developed, well nourished patient who is awake, alert, pm1 and in no acute distress. Head/Face: Normocephalic, atraumatic. 18:17 Back: No spinal tenderness. No costovertebral tenderness. Full range of motion. Skin: Warm, dry with normal turgor. Normal color with no rashes, no lesions, and no evidence of cellulitis. MS/ Extremity: Pulses equal, no cyanosis. Neurovascular intact. Full, normal range of motion. 18:17 Cardiovascular: Exam negative for acute changes, Rate: bradycardic, actual rate is 53 bpm, Rhythm: regular, Pulses: no pulse deficits are appreciated, Edema: is not appreciated. 18:17 Respiratory: Exam negative for acute changes, respiratory distress, shortness of breath, Breath sounds: are clear throughout. 18:17 Abdomen/GI: Inspection: abdomen appears normal, Palpation: abdomen is soft and non-tender, in all quadrants. 18:17 Neuro: Exam negative for acute changes, Orientation: is normal, Mentation: is normal, Motor: is normal, moves all fours. Vital Signs: 15:02 BP 124 / 60; Pulse 53; Resp 19; Temp 97.8(TE); Pulse Ox 99% on R/A; Weight 56.7 kg; ss Height 5 ft. 2 in. (157.48 cm); Pain 0/10; 16:19 BP 151 / 64; Pulse 53; Resp 18; Pulse Ox 100% on R/A; ll1 19:18 BP 145 / 47; Pulse 50; Resp 18; Pulse Ox 100% on R/A; jb4 15:02 Body Mass Index 22.86 (56.70 kg, 157.48 cm) ss MDM: 16:39 [facility] 18:38 Data reviewed: vital signs. Data interpreted: Pulse oximetry: on room air is 100 %. pm1 Interpretation: normal. 18:38 Counseling: I had a detailed discussion with the patient and/or guardian regarding: the pm1 historical points, exam findings, and any diagnostic results supporting the discharge/admit diagnosis, lab results, radiology results, the need for outpatient follow up, to return to the emergency department if symptoms worsen or persist or if there are any questions or concerns that arise at home. 06/30 16:54 Order name: COVID-19 pm1 06/30 16:54 Order name: Flu pm1 06/30 16:54 Order name: Strep pm1 06/30 16:55 Order name: Group A Streptococcus Rapid Sc; Complete Time: 18:09 EDMS 06/30 15:06 Order name: XRAY Chest Pa And Lat (2 Views); Complete Time: 16:52 ss 06/30 16:54 Order name: Droplet/Contact Precautions; Complete Time: 17:03 pm1 06/30 16:54 Order name: O2 Per Protocol; Complete Time: 17:03 pm1 06/30 18:10 Order name: Throat Culture EDMS 06/30 18:36 Order name: COVID-19/FLU A+B; Complete Time: 18:38 EDMS Administered Medications: 18:33 Drug: Rocephin (cefTRIAXone) 1 grams Route: IM; Site: right gluteus; ll1 19:20 Follow up: Response: No adverse reaction; RASS: Alert and Calm (0) [facility] 18:33 Drug: Decadron 10 mg Route: IM; Site: right vastus lateralis; ll1 19:20 Follow up: Response: No adverse reaction; RASS: Alert and Calm (0) [facility] 18:33 Drug: Zithromax 500 mg Route: PO; ll1 19:20 Follow up: Response: No adverse reaction; RASS: Alert and Calm (0) jb Disposition: 07/01 07:31 Co-signature as Attending Physician, Vern Arias MD I agree with the assessment and nanci plan of care. Disposition: 06/30/20 18:39 Discharged to Home. Impression: Pneumonia, unspecified organism, Chronic obstructive pulmonary disease, unspecified. - Condition is Stable. - Discharge Instructions: Chronic Obstructive Pulmonary Disease, Community-Acquired Pneumonia, Adult. - Prescriptions for Prednisone 20 mg Oral Tablet - take 3 tablet by ORAL route once daily for 5 days; 15 tablet. Zithromax Z- Venkata 250 mg Oral Tablet - take 1 tablet by ORAL route as directed for 5 days Day 1 - take two (2) tablets one time. Day 2, 3, 4 , 5 take one (1) tablet once daily.; 6 tablet. Guaifenesin AC 10- 100 mg/5 mL Oral Liquid - take 10 milliliter by ORAL route every 4 hours As needed; 240 milliliter. Augmentin 875- 125 mg Oral Tablet - take 1 tablet by ORAL route every 12 hours for 10 days; 20 tablet. - Medication Reconciliation Form, Thank You Letter, Antibiotic Education, Prescription Opioid Use form. - Follow up: Emergency Department; When: As needed; Reason: Worsening of condition. Follow up: Private Physician; When: 2 - 3 days; Reason: Recheck today's complaints, Continuance of care, Re-evaluation by your physician. - Problem is new. - Symptoms have improved. Signatures: Dispatcher [employer] EDTX Vern Arias MD MD cha Smirch, Shelby, RN RN ss Kirit Camacho, PNEUMATIC HOIST OPERATOR PNEUMATIC HOIST OPERATOR pm1 Pedro Beckman RN RN jb4 Annie Galindo RN RN ll1 Corrections: (The following items were deleted from the chart) 06/30 17:23 16:55 CORONAVIRUS ordered. [facility] 17:23 16:55 Influenza Screen (A ordered. [facility] 19:20 18:39 06/30/2020 18:39 Discharged to Home. Impression: Pneumonia, unspecified organism; jb4 Chronic obstructive pulmonary disease, unspecified. Condition is Stable. Forms are Medication Reconciliation Form, Thank You Letter, Antibiotic Education, Prescription Opioid Use. Follow up: Emergency Department; When: As needed; Reason: Worsening of condition. Follow up: Private Physician; When: 2 - 3 days; Reason: Recheck today's complaints, Continuance of care, Re-evaluation by your physician. Problem is new. Symptoms have improved. pm1
--- NOTE | 2020-06-30 18:40 | ER ---
Nurse's Notes [facility] Name: Dahlia Reyes Age: 84 yrs Sex: Female : 1935 Arrival Date: 06/30/2020 Time: 14:27 Bed 18 Private MD: Diagnosis: Pneumonia, unspecified organism;Chronic obstructive pulmonary disease, unspecified Presentation: 06/30 15:02 Chief complaint: Patient's son or daughter states: cough that began 06/20. Pt wants to ss make sure that she does not have COVID or pneumonia. Coronavirus screen: cough unrelated to allergies, Client presents with at least one sign or symptom that may indicate coronavirus-19. Standard/surgical mask placed on the client. Ebola Screen: Patient denies exposure to infectious person. Patient denies travel to an Ebola-affected area in the 21 days before illness onset. Initial Sepsis Screen: Does the patient meet any 2 criteria? No. Patient's initial sepsis screen is negative. Does the patient have a suspected source of infection? No. Patient's initial sepsis screen is negative. Risk Assessment: Do you want to hurt yourself or someone else? Patient reports no desire to harm self or others. Onset of symptoms was June 20, 2020. 15:02 Method Of Arrival: Ambulatory ss 15:02 Acuity: NOE 3 ss Triage Assessment: 19:18 General: Appears in no apparent distress. Behavior is calm, cooperative, appropriate jb4 for age. Neuro: No deficits noted. Cardiovascular: No deficits noted. Respiratory: Reports cough that is non-productive, Airway is patent Trachea midline Respiratory effort is even, unlabored, Respiratory pattern is regular, symmetrical, Breath sounds are clear bilaterally. Onset: The symptoms/episode began/occurred the patient has mild shortness of breath. Historical: - Allergies: 15:04 No Known Allergies; ss - PMHx: 15:04 COPD; High Cholesterol; Diabetes - IDDM; Hypertension; ss - Immunization history:: Adult Immunizations up to date. - Social history:: Smoking status: Patient denies any tobacco usage or history of. Screenin:19 Abuse screen: Denies threats or abuse. Nutritional screening: No deficits noted. ll1 Tuberculosis screening: No symptoms or risk factors identified. 19:19 Fall Risk None identified. Total Benítez Fall Scale indicates No Risk (0-24 pts). jb4 Assessment: 16:20 Pain: Denies pain. Cardiovascular: No deficits noted. Rhythm is regular. Respiratory: ll1 Airway is patent Trachea midline Respiratory effort is even, unlabored, Respiratory pattern is regular, symmetrical. Vital Signs: 15:02 BP 124 / 60; Pulse 53; Resp 19; Temp 97.8(TE); Pulse Ox 99% on R/A; Weight 56.7 kg; ss Height 5 ft. 2 in. (157.48 cm); Pain 0/10; 16:19 BP 151 / 64; Pulse 53; Resp 18; Pulse Ox 100% on R/A; ll1 19:18 BP 145 / 47; Pulse 50; Resp 18; Pulse Ox 100% on R/A; jb4 15:02 Body Mass Index 22.86 (56.70 kg, 157.48 cm) ED Course: 14:27 Patient arrived in ED. rg4 15:04 Triage completed. ss 15:04 Arm band placed on right wrist. ss 15:54 XRAY Chest Pa And Lat (2 Views) In Process Unspecified. EDMS 16:11 Annie Galindo, MEL is Primary Nurse. ll1 16:39 Kirit Camacho NP is PHCP. pm1 16:39 Vern Arias MD is Attending Physician. pm1 17:07 COVID swab sent to lab. Flu and/or RSV swab sent to lab. Strep swab sent to lab. jp3 17:07 COVID-19 Sent, Flu, Strep Sent. vg1 19:19 Patient has correct armband on for positive identification. Bed in low position. Call jb4 light in reach. Side rails up X 1. Pulse ox on. NIBP on. 19:19 No provider procedures requiring assistance completed. Patient did not have IV access jb4 during this emergency room visit. Administered Medications: 18:33 Drug: Rocephin (cefTRIAXone) 1 grams Route: IM; Site: right gluteus; 1 19:20 Follow up: Response: No adverse reaction; RASS: Alert and Calm (0) jb4 18:33 Drug: Decadron 10 mg Route: IM; Site: right vastus lateralis; ll1 19:20 Follow up: Response: No adverse reaction; RASS: Alert and Calm (0) 4 18:33 Drug: Zithromax 500 mg Route: PO; ll1 19:20 Follow up: Response: No adverse reaction; RASS: Alert and Calm (0) jb4 Outcome: 18:39 Discharge ordered by MD. pm1 19:19 Discharged to home via wheelchair. jb4 19:19 Condition: stable 19:19 Discharge instructions given to patient, family, Instructed on discharge instructions, follow up and referral plans. medication usage, Demonstrated understanding of instructions, follow-up care, medications, Prescriptions given X 4. 19:20 Patient left the ED. jb4 Signatures: Dispatcher [employer] EDMS Winsome Gross, RN RN ss Kirit Camacho, HIM [facility] pm1 Donna Land rg4 Pedro Beckman RN RN jb4 Smith Fowler jp3 Mya Land RN RN vg1 Annie Galindo RN RN ll1 Corrections: (The following items were deleted from the chart) 17:49 17:48 CORONAVIRUS+MR.LAB.BRZ drawn and sent. 1 [facility] 17:49 17:48 Influenza Screen (A \T\ B)+BA.LAB.BRZ drawn and sent. [place] [id number] 17:49 17:48 Group A Streptococcus Rapid Sc+BA.LAB.BRZ drawn and sent. 1 [facility]
[2020-06-30 19:30] VITALS: TEMP 97.8
[2020-06-30 19:32] VITALS: O2SAT 100
[2020-06-30 19:33] VITALS: BP 145/47
== END 2020-06-30 19:20 | disposition home or self-care (01) ==
LOC: ER 14:25
DX: J18.9 Pneumonia, unspecified organism (principal); J44.9 Chronic obstructive pulmonary disease, unspecified; Z20.828 Contact with and (suspected) exposure to other viral communicable diseases; I10 Essential (primary) hypertension
CPT/HCPCS: 87070; 87081; 0240U; 71046; 96372; 99284; J1100

== ENCOUNTER 2020-07-23 10:12 | Emergency (ER) | payer OTHER ==
--- OUTSIDE RECORDS SUMMARY | 2020-07-23 11:17 | XMS REPORT | Continuity of Care Document ---
:[address] [facility] t Address 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 term care insulin insulin use use Hyperlipid Hyperlipid Problem Active [facility] - unspecifie unspecifie Me moria d d l hyperlipid hyperlipid [facility] Cardiac Cardiac Problem Active [facility] arrhythmia arrhythmia [place] [facility] - , , Memoria unspecifie unspecifie l d cardiac d cardiac Outp ati arrhythmia arrhythmia en t type type Clinics 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 Medications Ordered Filled Start Stop Current Ordering Indication Dosage Frequency Signature Comments Components Source Medication Medication Date Date Medication? Clinician (SIG) Name Name Fluticasone Fluticasone 2017-06 Yes Andrew [address] [facility] Propionate Propionate 2-14 Alexander each [place] - 00:00: nostril [facility] Ventolin Ventolin 2017-06 Yes Andrew [address] [facility] HFA HFA 0-16 Alexander needed [facility] - 00:00: Memoria 00 l [facility] ent Clinics Potassium Potassium Yes Andrew as [facility] Chloride Chloride Alexander directed [place] - Memoria l [facility] ent [facility] Alendronate Alendronate Yes Andrew [address] [facility] Sodium Sodium [facility] - Memoria l [facility] ent Clinics Benazepril Benazepril Yes Andrew [address] [facility] HCl HCl Alexander [facility] - [facility] l [facility] ent Clinics Carvedilol Carvedilol Yes Andrew as C [facility] directed [facility] - Memoria l [facility] ent [facility]ics Megestrol Megestrol Yes Andrew [address] Acetate Acetate [facility] - Memoria l [facility] ent Clinics Albuterol Albuterol Yes Andrew [address] [facility] Sulfate HFA Sulfate HFA Alexander needed [facility] - Memoria l [facility] ent Clinics Amlodipine Amlodipine Yes Andrew [address] [facility] Besylate Besylate [facility] - [facility] NovoLog Mix NovoLog Mix Yes Andrew [address] 70/30 70/30 Alexander [facility] - Flexpen Flexpen [facility] Metformin Metformin Yes Andrew [address] [facility] HCl HCl Alexander with a [facility] - meal [facility] Simvastatin Simvastatin Yes Andrew [address] [facility] Alexander in the [facility] - evening [facility] Lasix Lasix Yes Andrew [address] [facility] Procedures This patient has no known procedures. Encounters Start End Encounter Admission Attending Care Care Encounter Source Date/Time Date/Time Type Type Clinicians Facility Department ID 2020-05-30 2020-05-30 Refill [facility] [id number] 00:00:00 00:00:00 Venanciomarshaermias [place] [id number] [place] [id number] Professio [phone] [address] 2019-11-15 2019-11-15 Telephone [facility] [id number] 00:00:00 00:00:00 Tammy [place] [id number] [place] [id number] Professio [phone] [address] 2019-10-11 2019-10-11 Refill [facility] [id number] 00:00:00 00:00:00 [facility] [id number] [place] [id number] Professio [phone] [place] [address] Office [facility] One 2019-09-30 2019-09-30 [facility] [id number] 00:00:00 00:00:00 (Out) Tammy Leung [id number] [place] [id number] Professio [phone] [address] 2019-09-30 2019-09-30 Refill [facility] [id number] 00:00:00 00:00:00 Tammy Leung [id number] [place] [id number] Professio [phone] [facility] 2019-07-14 2019-07-14 Telephone [facility] [id number] 00:00:00 00:00:00 [facility] [id number] [place] [id number] [facility] [phone] Primary & 059 Specialty Care 2019-03-18 2019-03-18 Refill [facility] [id number] 00:00:00 00:00:00 [facility] [id number] [place] [id number] Professio [phone] [place] [address] Office Building One 2019-03-15 2019-03-15 [facility] [id number] 00:00:00 00:00:00 [facility] [id number] [place] [id number] Professio [phone] [place] [address] Office [address] One 2019-03-04 2019-03-04 Refill [facility] [id number] 00:00:00 00:00:00 [facility] [id number] [place] [id number] Professio [phone] [place] [address] Office [address] One 2019-02-01 2019-02-01 Refill [facility] [id number] 00:00:00 00:00:00 [facility] [id number] [place] [id number] Professio [phone] [address] 2019-01-18 2019-01-18 Orders Doctor LUKE [id number] 00:00:00 00:00:00 Only Unassigned, GENESIS [id number] [place] [facility] [phone] [id number] 2018-11-18 2018-11-18 [facility] [id number] [facility] [address] 11:18:00 11:18:00 [facility] Medicine Outpati ent Clinics 2018-10-11 2018-10-11 [facility] [id number] 10:00:00 10:00:00 [facility] Medicine Outpati ent Clinics 2018-06-11 2018-06-11 [facility] [id number] 10:15:00 10:15:00 [facility] Medicine Outpati ent Clinics 2018-04-13 2018-04-13 [facility] [id number] 14:05:00 14:05:00 [facility] Medicine Outpati ent Clinics 2018-03-31 2018-03-31 [facility] [id number] 15:00:00 15:00:00 [facility] Medicine Outpati ent Clinics 2018-02-09 2018-02-09 [facility] [id number] 14:00:00 14:00:00 [facility] Medicine Outpati ent Clinics Results This patient has no known results.
[2020-07-23 12:30] LABS: SARS-COV-2 RT PCR POSITIVE (NEGATIVE)
--- NOTE | 2020-07-23 13:51 | RAD REPORT ---
EXAM DESCRIPTION: RAD - Chest Single View - 07/23/2020 1:18 pm CLINICAL HISTORY: COUGH, COVID positive COMPARISON: Two view chest June 30, 2020, two view chest December 01, 2019 TECHNIQUE: AP portable chest image was obtained 07/23/2020 1:18 pm . FINDINGS: Lung volumes are low. Interstitial opacification is present with the pattern similar to th e prior study. A few patchy alveolar opacities are present also without overall change from the brianne rison. Heart and vasculature are normal. No measurable pleural effusion and no pneumothorax. No acute bony abnormality seen. No acute aortic findings suspected. IMPRESSION: Interstitial and patchy alveolar opacities are present not substantially different from prior imaging. Extent of chronic disease could mask early infiltrates. Superimposed mild COVID-19 pneumonia is not e xcluded. If it would alter medical management, contrast CT chest imaging could be performed for more sensitive lung parenchymal assessment.
--- NOTE | 2020-07-23 13:54 | ER ---
Nurse's Notes [facility] Name: Dahlia Reyes Age: 84 yrs Sex: Female : 1935 Arrival Date: 07/23/2020 Time: 10:20 Bed 23 Private MD: Hayden Cancino Diagnosis: Coronavirus infection, unspecified Presentation: 07/23 10:48 Chief complaint: Body aches, fatigue, abdominal pain, chest congestion, and cough x 1 hb week. Coronavirus screen: Client presents with at least one sign or symptom that may indicate coronavirus-19. Standard/surgical mask placed on the client. Provider contacted for isolation considerations. Ebola Screen: No symptoms or risks identified at this time. Initial Sepsis Screen: Does the patient meet any 2 criteria? No. Patient's initial sepsis screen is negative. Does the patient have a suspected source of infection? No. Patient's initial sepsis screen is negative. Risk Assessment: Do you want to hurt yourself or someone else? Patient reports no desire to harm self or others. Onset of symptoms was July 26, 2020. 10:48 Method Of Arrival: Ambulatory hb 10:48 Acuity: NOE 3 hb Historical: - Allergies: 10:51 No Known Allergies; hb - PMHx: 10:51 Diabetes - IDDM; COPD; Diabetes - NIDDM; High Cholesterol; Hypertension; hb - Immunization history:: Adult Immunizations up to date. - Social history:: Smoking status: Patient denies any tobacco usage or history of. Screenin:17 Abuse screen: Denies threats or abuse. Denies injuries from another. Nutritional hb screening: No deficits noted. Tuberculosis screening: No symptoms or risk factors identified. Fall Risk None identified. Assessment: 13:16 General: Appears in no apparent distress. Behavior is calm, cooperative. Pain: Pain hb currently is 7 out of 10 on a pain scale. Neuro: Level of Consciousness is awake, alert, obeys commands, Oriented to person, place, time, situation. Cardiovascular: Capillary refill < 3 seconds Patient's skin is warm and dry. Respiratory: Airway is patent Respiratory effort is even, unlabored, Respiratory pattern is regular, symmetrical. GI: Reports lower abdominal pain, upper abdominal pain, nausea. : No signs and/or symptoms were reported regarding the genitourinary system. EENT: No signs and/or symptoms were reported regarding the EENT system. Derm: Skin is pink, warm \T\ dry. Musculoskeletal: Reports body aches. Vital Signs: 10:48 BP 133 / 54; Pulse 62; Resp 20; Temp 97.9(TE); Pulse Ox 98% ; Pain 7/10; hb 13:20 BP 127 / 76; Pulse 66; Resp 15; Pulse Ox 99% on R/A; hb ED Course: 10:20 Patient arrived in ED. am4 10:21 Hayden Cancino MD is Private Physician. am4 10:50 Triage completed. hb 10:51 Roula Chairez FNP-C is [facility]. kb 10:51 Gamaliel Torres MD is Attending Physician. kb 10:51 Arm band placed on. hb 13:12 Dawn Moon, RN is Primary Nurse. hb 13:17 Patient has correct armband on for positive identification. Bed in low position. Call hb light in reach. 13:23 Chest Single View XRAY In Process Unspecified. EDMS 13:54 No provider procedures requiring assistance completed. Patient did not have IV access hb during this emergency room visit. Administered Medications: 13:50 Drug: Decadron 10 mg Route: IM; Site: right deltoid; hb 14:05 Follow up: Response: No adverse reaction hb Outcome: 13:53 Discharge ordered by . kb 13:54 Discharged to home ambulatory. hb 13:54 Condition: stable 13:54 Discharge instructions given to patient, Instructed on discharge instructions, follow up and referral plans. medication usage, Demonstrated understanding of instructions, follow-up care, medications. 14:05 Patient left the ED. hb Signatures: Dispatcher [employer] EDMS Roula Chairez FNP-C FNP-Dawn Chisholm RN RN Gem Diaz am4 Corrections: (The following items were deleted from the chart) 13:18 13:16 GI: No signs and/or symptoms were reported involving the gastrointestinal system. hb hb 13:18 13:16 Musculoskeletal: No signs and/or symptoms reported regarding the musculoskeletal hb system. hb
--- NOTE | 2020-07-23 13:54 | EDPHYS ---
Physician Documentation [facility] Name: Dahlia Reyes Age: 84 yrs Sex: Female : 1935 Arrival Date: 07/23/2020 Time: 10:20 Bed 23 Private MD: Hayden Cancino ED Physician Gamaliel Torres HPI: 07/23 14:06 This 84 yrs old Female presents to ER via Ambulatory with complaints of R/O kb COVID, Cough. 14:06 The patient or guardian reports cough, that is intermittent, described as mild, with no kb sputum, flu symptoms, myalgias. Onset: The symptoms/episode began/occurred 1 week(s) ago. Severity of symptoms: At their worst the symptoms were mild, in the emergency department the symptoms are unchanged. Modifying factors: The symptoms are alleviated by nothing, the symptoms are aggravated by nothing. Associated signs and symptoms: The patient has no apparent associated signs or symptoms. The patient has not experienced similar symptoms in the past. The patient has not recently seen a physician. Pt reports cough, malaise and body aches for a week. Historical: - Allergies: 10:51 No Known Allergies; hb - PMHx: 10:51 Diabetes - IDDM; COPD; Diabetes - NIDDM; High Cholesterol; Hypertension; hb - Immunization history:: Adult Immunizations up to date. - Social history:: Smoking status: Patient denies any tobacco usage or history of. ROS: 14:03 ENT: Negative for injury, pain, and discharge, Neck: Negative for injury, pain, and kb swelling, Cardiovascular: Negative for chest pain, palpitations, and edema, Abdomen/GI: Negative for abdominal pain, nausea, vomiting, diarrhea, and constipation, MS/Extremity: Negative for injury and deformity, Skin: Negative for injury, rash, and discoloration, Neuro: Negative for headache, weakness, numbness, tingling, and seizure. 14:03 Constitutional: Positive for body aches, malaise. 14:03 Respiratory: Positive for cough. Exam: 14:06 Constitutional: This is a well developed, well nourished patient who is awake, alert, kb and in no acute distress. Head/Face: Normocephalic, atraumatic. Chest/axilla: Normal chest wall appearance and motion. Nontender with no deformity. No lesions are appreciated. Cardiovascular: Regular rate and rhythm with a normal S1 and S2. No gallops, murmurs, or rubs. Normal PMI, no JVD. No pulse deficits. Respiratory: Lungs have equal breath sounds bilaterally, clear to auscultation and percussion. No rales, rhonchi or wheezes noted. No increased work of breathing, no retractions or nasal flaring. Abdomen/GI: Soft, non-tender, with normal bowel sounds. No distension or tympany. No guarding or rebound. No evidence of tenderness throughout. Skin: Warm, dry with normal turgor. Normal color with no rashes, no lesions, and no evidence of cellulitis. MS/ Extremity: Pulses equal, no cyanosis. Neurovascular intact. Full, normal range of motion. Neuro: Awake and alert, GCS 15, oriented to person, place, time, and situation. Cranial nerves II-XII grossly intact. Motor strength 5/5 in all extremities. Sensory grossly intact. Cerebellar exam normal. Normal gait. Vital Signs: 10:48 BP 133 / 54; Pulse 62; Resp 20; Temp 97.9(TE); Pulse Ox 98% ; Pain 7/10; hb 13:20 BP 127 / 76; Pulse 66; Resp 15; Pulse Ox 99% on R/A; hb MDM: 10:51 Patient medically screened. kb 13:53 Data reviewed: vital signs, nurses notes. Data interpreted: Pulse oximetry: on room air kb is 98 %. Interpretation: normal. Counseling: I had a detailed discussion with the patient and/or guardian regarding: the historical points, exam findings, and any diagnostic results supporting the discharge/admit diagnosis, lab results, radiology results, the need for outpatient follow up, a family practitioner, to return to the emergency department if symptoms worsen or persist or if there are any questions or concerns that arise at home. 13:57 ED course: Pt requests a steroid shot because that always helps when she has a cough. kb Pt states she knows to come back if she starts having trouble breathing or gets worse. Pt states "my daughter has it so I really just came to get tested because if I didn't have it I was going to stay with my son.". 07/23 10:52 Order name: Chest Single View XRAY; Complete Time: 13:52 kb 07/23 12:30 Order name: COVID-19/FLU A+B; Complete Time: 12:32 EDMS Administered Medications: 13:50 Drug: Decadron 10 mg Route: IM; Site: right deltoid; hb 14:05 Follow up: Response: No adverse reaction hb Disposition: 14:36 Co-signature as Attending Physician, Gamaliel Torres MD. rn Disposition: 07/23/20 13:53 Discharged to Home. Impression: Coronavirus infection, unspecified. - Condition is Stable. - Discharge Instructions: Viral Respiratory Infection, [id number], COVID-19. - Medication Reconciliation Form, Thank You Letter, Antibiotic Education, Prescription Opioid Use form. - Follow up: Emergency Department; When: As needed; Reason: Worsening of condition. Follow up: Private Physician; When: 2 - 3 days; Reason: Recheck today's complaints, Continuance of care, Re-evaluation by your physician. Signatures: Dispatcher [employer] EDAZ Roula Chairez, RN STAFF-C RN STAFF-Ckb Gamaliel Torres MD MD rn Baxter, Heather, RN RN hb Corrections: (The following items were deleted from the chart) 14:05 13:53 07/23/2020 13:53 Discharged to Home. Impression: Coronavirus infection, hb unspecified. Condition is Stable. Forms are Medication Reconciliation Form, Thank You Letter, Antibiotic Education, Prescription Opioid Use. Follow up: Emergency Department; When: As needed; Reason: Worsening of condition. Follow up: Private Physician; When: 2 - 3 days; Reason: Recheck today's complaints, Continuance of care, Re-evaluation by your physician. kb
[2020-07-23 14:10] VITALS: TEMP 97.9
[2020-07-23 14:11] VITALS: BP 127/76; O2SAT 99
[2020-07-23] MEDS ORDERED: dexAMETHasone 10 MG/ML VIAL ONE (14:16)
== END 2020-07-23 14:05 | disposition home or self-care (01) ==
LOC: ER 10:12
DX: U07.1 COVID-19 (principal); E11.9 Type 2 diabetes mellitus without complications; J44.9 Chronic obstructive pulmonary disease, unspecified; E78.00 Pure hypercholesterolemia, unspecified; I10 Essential (primary) hypertension
CPT/HCPCS: 0240U; 71045; 96372; 99283; J1100

== ENCOUNTER → 2020-09-05 | Emergency (ER) | payer OTHER ==
[~2020-09-05] MED LIST: CEFTRIAXONE/SWI 1gm 1 GM/10 ML SYR ONE; METHYLPREDNISOLONE 125 MG INJ ONE; NA CHLORIDE 0.9% 500 ML ONE
--- OUTSIDE RECORDS SUMMARY | 2020-09-05 11:47 | XMS REPORT | Continuity of Care Document ---
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 insulin insulin use use Hyperlipid Hyperlipid Problem Active [facility] - unspecifie unspecifie Me moria d d l hyperlipid hyperlipid [facility] emia type emia type ent Clinics Cardiac Cardiac Problem Active [facility] arrhythmia arrhythmia [place] k[place] - , , Memoria unspecifie unspecifie l d cardiac d cardiac Outp ati arrhythmia arrhythmia en t type type Clinics 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 Medications Ordered Filled Start Stop Current Ordering Indication Dosage Frequency Signature Comments Components Source Medication Medication Date Date Medication? Clinician (SIG) Name Name Fluticasone Fluticasone 2017-06 Yes Andrew [address] [facility] Propionate Propionate 2-14 Alexander each Patsy kes - 00:00: nostril Memoria 00 l [facility] Ventolin Ventolin 2017-06 Yes Andrew [address] [facility] HFA HFA 0-16 Alexander needed [facility] - 00:00: Memoria 00 l [facility] Potassium Potassium Yes Andrew as [facility] Chloride Chloride Alexander directed [facility] Alendronate Alendronate Yes Andrew [address] [facility] Sodium Sodium [facility] l [facility] Benazepril Benazepril Yes Andrew [address] [facility] [address] HCl HCl Alexander [facility] l [facility] Carvedilol Carvedilol Yes Andrew as [facility] Alexander directed [facility] l [facility] Megestrol Megestrol Yes Andrew [address] Acetate Acetate [facility] ent [facility] Albuterol Albuterol Yes Andrew [address] [facility] Sulfate HFA Sulfate HFA Alexander needed [facility] l [facility] Amlodipine Amlodipine Yes Andrew [address] [facility] [address] Besylate Besylate [facility] NovoLog Mix NovoLog Mix Yes Andrew [address] 70/30 70/30 Alexander [facility] - Flexpen Flexpen [facility] Metformin Metformin Yes Andrew [address] [facility] [address] HCl HCl Alexander with a [facility] - meal [facility] Simvastatin Simvastatin Yes Andrew [address] [facility] Alexander in the [facility] - evening [facility] Lasix Lasix Yes Andrew [address] [facility] Procedures This patient has no known procedures. Encounters Start End Encounter Admission Attending Care Care Encounter Source Date/Time Date/Time Type Type Clinicians Facility Department ID 2020-05-30 2020-05-30 Refill [facility] [id number] 00:00:00 00:00:00 Tammy Leung [id number] [place] [id number] Professio [phone] [address] 2019-11-15 2019-11-15 Telephone [facility] [id number] 00:00:00 00:00:00 Tammy Leung [id number] [place] [id number] Professio [phone] [address] 2019-10-11 2019-10-11 Refill [facility] [id number] 00:00:00 00:00:00 [facility] [id number] [place] [id number] Professio [phone] [place] [address] Office [facility] One 2019-09-30 2019-09-30 Letter [facility] [id number] 00:00:00 00:00:00 (Out) [place] [id number] [place] [id number] Professio [phone] [address] 2019-09-30 2019-09-30 Refill [facility] [id number] 00:00:00 00:00:00 Venanciom[place]haermias [place] [id number] [place] [id number] Professio [phone] [facility] 2019-07-14 2019-07-14 Telephone [facility] [id number] 00:00:00 00:00:00 [facility] [id number] [place] [id number] [facility] [phone] Primary & 059 Specialty Care 2019-03-18 2019-03-18 [facility] [id number] 00:00:00 00:00:00 [facility] [id number] [place] [id number] Professio [phone] [place] [address] Office Building One 2019-03-15 2019-03-15 [facility] [id number] 00:00:00 00:00:00 [facility] [id number] [place] [id number] Professio [phone] [place] [address] Office Building One 2019-03-04 2019-03-04 Refill [facility] [id number] 00:00:00 00:00:00 [facility] [id number] [place] [id number] Professio [phone] [place] [address] Office Building One 2019-02-01 2019-02-01 Refill [facility] [id number] 00:00:00 00:00:00 [facility] [id number] [place] [id number] Professio [phone] [facility] 2019-01-18 2019-01-18 Orders Doctor LUKE [id number] 00:00:00 00:00:00 Only Unassigned, GENESIS [id number] [employer] [facility] [phone] 009 2018-11-18 2018-11-18 [facility] [id number] 11:18:00 11:18:00 [facility] 2018-10-11 2018-10-11 [facility] [id number] 10:00:00 10:00:00 [facility] 2018-06-11 2018-06-11 [facility] [id number] 10:15:00 10:15:00 [facility] 2018-04-13 2018-04-13 [facility] [id number] 14:05:00 14:05:00 [facility] 2018-03-31 2018-03-31 [facility] [id number] 15:00:00 15:00:00 [facility] 2018-02-09 2018-02-09 [facility] [id number] 14:00:00 14:00:00 [facility] Results This patient has no known results.
--- NOTE | 2020-09-05 12:51 | RAD REPORT ---
EXAM DESCRIPTION: CT - Head Brain Wo Cont - 09/05/2020 12:37 pm CLINICAL HISTORY: Alteration of awareness/confusion COMPARISON: 2019 TECHNIQUE: Computed axial tomography of the head was obtained. IV contrast was not requested. All CT scans are performed using dose optimization technique as appropriate and may include automated exposure control or mA/KV adjustment according to patient size. FINDINGS: An intracranial bleed is not seen . The ventricles are normal in caliber. No extra-axial fluid collection is noted. Mild to moderate low-density areas within periventricular, deep and subcortical white matter likely r epresent ischemic changes secondary to small vessel disease. Fluid within the sinuses/ mastoids is not seen. Mild chronic ethmoid sinusitis IMPRESSION: No acute intracranial abnormality is seen. If patient's symptoms persist MRI of the bra in would be recommended.
--- NOTE | 2020-09-05 13:25 | RAD REPORT ---
EXAM DESCRIPTION: [place]in Single View09/05/2020 1:08 pm CLINICAL HISTORY: cough COMPARISON: June 2020 FINDINGS: The lungs appear clear of acute infiltrate. The heart is mildly enlarged IMPRESSION: No acute abnormalities displayed
[2020-09-05 13:52] LABS: Urine Blood TRACE (NEG); Urine Glucose NEGATIVE (NEG); Urine Protein 3+ (NEG)
[2020-09-05 14:37] LABS: Absolute Lymphocytes (CBC) 0.4 K/uL (0.7-4.9); Basophils % 0.6 % (0-1.3); Hematocrit 25.5 % (36.0-45.0); Lymphocytes % 4.5 % (15.3-44.8); MPV 11.5 fL (7.6-11.3); RBC Red Blood Cell Count 3.17 M/uL (3.86-4.86)
[2020-09-05 14:40] LABS: Magnesium 1.7 mg/dL (1.8-2.4); Potassium 4.7 mmol/L (3.5-5.1); Thyroid Stimulating Hormone 2.83 uIU/mL (0.360-3.740)
[2020-09-05 14:56] LABS: Urine Bacteria LOADED /HPF (<20); Urine RBC <5 /HPF (NONE SEEN)
[2020-09-05 15:23] LABS: SARS-COV-2 RT PCR POSITIVE (NEGATIVE)
--- NOTE | 2020-09-05 16:14 | ER ---
Nurse's Notes [facility] Name: Dahlia Reyes Age: 84 yrs Sex: Female : 1935 Arrival Date: 09/05/2020 Time: 11:52 Bed 20 Private MD: Diagnosis: Weakness;Coronavirus infection, unspecified;Urinary tract infection, site not specified;Hypothermia Presentation: 09/05 11:52 Chief complaint: EMS states: pt was found standing with walker c/o not being able to aa5 move her legs, FSBG was checked and it was 94 which family reported it was low for her, pt was given twinkie to eat and FSBG increased to 139, family reported confusion and slurred speech. Last known normal was last night at 2330. 11:52 Acuity: NOE 2 aa5 11:52 Method Of Arrival: EMS: [facility] aa5 11:52 Initial Sepsis Screen: Does the patient meet any 2 criteria? Temp <36.0*C (96.8*F)) or aa5 > 38.3*C (100.9*F). Altered Mental Status. Yes Does the patient have a suspected source of infection? Yes:. Risk Assessment: Do you want to hurt yourself or someone else? Patient reports no desire to harm self or others. Onset of symptoms was September 05, 2020. 18:07 Coronavirus screen: Ebola Screen: No symptoms or risks identified at this time. zb Historical: - Allergies: 11:52 No Known Allergies; aa5 - PMHx: 11:52 COPD; Diabetes - IDDM; High Cholesterol; Hypertension; aa5 - Immunization history:: Adult Immunizations unknown. - Family history:: not pertinent. - Social history:: Smoking status: Patient denies any tobacco usage or history of. - Hospitalizations: : No recent hospitalization is reported. Screenin:57 Abuse screen: Denies threats or abuse. Nutritional screening: No deficits noted. tw2 Tuberculosis screening: No symptoms or risk factors identified. Fall Risk Secondary diagnosis (15 points) impaired mobility. Assessment: 12:10 Reassessment: ECP at bedside, family at bedside. zb 13:00 General: Appears in no apparent distress. comfortable, Behavior is calm, cooperative, zb appropriate for age, Reports chills for 0-12 hours. Pain: Denies pain. Neuro: Level of Consciousness is awake, alert, obeys commands, Oriented to person, place, time, situation, Soil Technologist are equal bilaterally Weakness in right leg(s). Cardiovascular: Reports None Heart tones S1 S2 present Capillary refill is > 3 seconds is sluggish in bilateral fingers Rhythm is sinus bradycardia. Respiratory: Airway is patent Respiratory effort is even, unlabored, Respiratory pattern is regular, symmetrical. GI: No signs and/or symptoms were reported involving the gastrointestinal system. : Urine is cloudy. EENT: No signs and/or symptoms were reported regarding the EENT system. Derm: Skin is intact, Skin is dry, Skin is normal, Skin temperature is cool. Musculoskeletal: Range of motion: limited in right knee. 14:00 Reassessment: Patient appears in no apparent distress at this time. Patient and/or zb family updated on plan of care and expected duration. Pain level reassessed. patient remains on bare hugger at this time. family at bedside. 15:00 Reassessment: Patient appears in no apparent distress at this time. Patient and/or zb family updated on plan of care and expected duration. Pain level reassessed. family at bedside. patient appears better more alert and warmer. patient has stopped shaking. 16:00 Reassessment: Patient appears in no apparent distress at this time. Patient and/or zb family updated on plan of care and expected duration. Pain level reassessed. ECP at bedside. patient's family states they want mother to go to a different hospital. family is requesting abx. notified physician and food. discussed patient that temp was low and heart rate has been low so it is in the best interested of the patient to stay in the hospital at this time/. 16:25 Reassessment: talked to patients family and discussed why patient should not leave. zb Patient and family decided to stay. notified ECP. 18:06 Reassessment: Patient appears in no apparent distress at this time. Patient and/or zb family updated on plan of care and expected duration. Pain level reassessed. Patient is alert, oriented x 3, equal unlabored respirations, skin warm/dry/pink. patient ambulate to rolling commode. patient Hospitalist at bedside notified of patients temp. 18:45 Reassessment: spoke with dr. Arshad. wants recheck of temp with bear hugger in about 1 zb hour. notified patient and family member. 19:34 Reassessment: Patient appears in no apparent distress at this time. Patient and/or zb family updated on plan of care and expected duration. Pain level reassessed. Patient is alert, oriented x 3, equal unlabored respirations, skin warm/dry/pink. patient appears well. temp checked w/o bearhugger 98.8 rectal. Vital Signs: 11:52 BP 148 / 79; Pulse 48; Resp 20 S; Temp 92.0(A); Pulse Ox 98% on R/A; aa5 12:00 Temp 91.4(R); aa5 14:00 BP 147 / 55; Pulse 59; Resp 16; Pulse Ox 100% on R/A; zb 15:14 BP 134 / 52; Pulse 60; Resp 18; Temp 95.4(R); Pulse Ox 100% on R/A; zb 16:00 BP 144 / 52; Pulse 60; Resp 18; Pulse Ox 100% on R/A; zb 18:05 BP 139 / 55; Pulse 61; Resp 18; Temp 99.5(R); Pulse Ox 100% ; zb 19:30 BP 141 / 55; Pulse 66; Resp 18; Temp 98.8(R); Pulse Ox 100% on R/A; zb ED Course: 11:52 Patient arrived in ED. am2 11:52 Arm band placed on Patient placed in an exam room, on a stretcher. aa5 12:05 Vern Villeda PA is PHCP. cp 12:05 Gamaliel Torres MD is Attending Physician. cp 12:09 Beryl Paiz, RN is Primary Nurse. tw2 12:09 Beryl Paiz, MEL is Primary Nurse. tw2 12:10 Katerin Jackson, MEL is Primary Nurse. zb 12:27 Triage completed. aa5 12:37 CT Head Brain wo Cont In Process Unspecified. EDMS 12:49 Inserted saline lock: 20 gauge in right antecubital area, using aseptic technique. zb Blood collected. 13:00 Patient has correct armband on for positive identification. secured entrance monitor on. Pulse zb ox on. NIBP on. Door closed. Noise minimized. Warm blanket given. 13:08 XRAY Chest (1 view) In Process Unspecified. EDMS 16:35 Cole Arshad MD is Hospitalizing Provider. rn Administered Medications: 13:00 Drug: NS 0.9% 500 ml Route: IV; Rate: bolus; Site: right antecubital; zb 15:50 Follow up: Response: No adverse reaction; IV Status: Completed infusion; IV Intake: zb 500ml 16:52 Drug: SOLU-Medrol 125 mg Route: IVP; Site: right antecubital; zb 17:26 Follow up: Response: No adverse reaction zb 16:52 Drug: Rocephin 1 grams Route: IV; Rate: calculated rate; Site: right antecubital; zb 17:26 Follow up: Response: No adverse reaction; IV Status: Completed infusion; IV Intake: 20mlzb Intake: 15:50 IV: 500ml; Total: 500ml. zb 17:26 IV: 20ml; Total: 520ml. zb Outcome: 16:36 Decision to Hospitalize by Provider. rn 21:36 Patient left the ED. sf Signatures: Dispatcher [employer] EDMS Gamaliel Torres MD MD rn Calderon, Audri, RN RN aa5 Vern Villeda PA PA cp Wise, Tara, RN RN vidya2 Christal James am2 Katerin Jackson RN RN zb Fitzpatrick, Steven, RN RN sf Corrections: (The following items were deleted from the chart) 16:26 16:25 Reassessment: talked to patients family and discussed why patient should not zb leave. Patient and family decided to stay. zb 17:28 16:00 Reassessment: Patient appears in no apparent distress at this time. Patient zb and/or family updated on plan of care and expected duration. Pain level reassessed. ECP at bedside. patient's family states they want mother to go to a different hospital. family is requesting abx. notified physician and food. zb
--- NOTE | 2020-09-05 16:14 | EDPHYS ---
Physician Documentation [facility] Name: Dahlia Reyes Age: 84 yrs Sex: Female : 1935 Arrival Date: 09/05/2020 Time: 11:52 Bed 20 Private MD: ED Physician Gamaliel Torres HPI: 09/05 12:42 This 84 yrs old Female presents to ER via EMS with complaints of Altered rn Mental Status, weakness. 12:42 The patient presents with weakness, slow speech. Onset: The symptoms/episode rn began/occurred this morning. Possible causes: unknown. Associated signs and symptoms: Pertinent positives: weakness, Pertinent negatives: abdominal pain, chest pain, confusion, diaphoresis, diarrhea, headache, seizure, shortness of breath, vomiting. Current symptoms: In the emergency department the patient's symptoms have improved. It is unknown whether or not the patient has had similar symptoms in the past. The patient has not recently seen a physician. Daughter reports last seen normal around 0530 this AM, was walking to bathroom. Patient called daughter later after she walked to kitchen and reported unable to walk, was able to stand, and denies pain. No headache/chest pain/sob/abd pain/vomiting/diarrhea. Daughter reported slow speech, and weak legs, both legs. Now improved but still not back to baseline. No recent illness, reports cough but not new cough per daughter. + hx of frequent UTI. . Historical: - Allergies: 11:52 No Known Allergies; aa5 - PMHx: 11:52 COPD; Diabetes - IDDM; High Cholesterol; Hypertension; aa5 - Immunization history:: Adult Immunizations unknown. - Family history:: not pertinent. - Social history:: Smoking status: Patient denies any tobacco usage or history of. - Hospitalizations: : No recent hospitalization is reported. ROS: 12:42 Constitutional: Negative for fever, chills, and weight loss, Eyes: Negative for injury, rn pain, redness, and discharge, Neck: Negative for injury, pain, and swelling, Cardiovascular: Negative for chest pain, palpitations, and edema, Respiratory: Negative for shortness of breath, wheezing, and pleuritic chest pain, Abdomen/GI: Negative for abdominal pain, nausea, vomiting, diarrhea, and constipation, Back: Negative for injury and pain, : Negative for injury, bleeding, discharge, and swelling, MS/Extremity: Negative for injury and deformity, Skin: Negative for injury, rash, and discoloration, Neuro: Negative for headache, numbness, tingling, and seizure. 12:42 All other systems are negative. rn Exam: 12:42 Constitutional: This is a well developed, well nourished patient who is awake, alert, rn and in no acute distress. Head/Face: Normocephalic, atraumatic. ENT: dry MM Cardiovascular: Bradycardic, regular Respiratory: Mild tachypnea, no retractions, diminished at bases Abdomen/GI: soft, non-tender Skin: Cool, dry MS/ Extremity: Pulses equal, no cyanosis. 2+ edema bilateral lower ext Neuro: Awake and alert, GCS 15, oriented to person, place, time, and situation. Cranial nerves II-XII grossly intact. Motor strength 4/5 bilateral upper ext, 3+/5 bilateral lower ext. Sensory grossly intact. Vital Signs: 11:52 BP 148 / 79; Pulse 48; Resp 20 S; Temp 92.0(A); Pulse Ox 98% on R/A; aa5 12:00 Temp 91.4(R); aa5 14:00 BP 147 / 55; Pulse 59; Resp 16; Pulse Ox 100% on R/A; zb 15:14 BP 134 / 52; Pulse 60; Resp 18; Temp 95.4(R); Pulse Ox 100% on R/A; zb 16:00 BP 144 / 52; Pulse 60; Resp 18; Pulse Ox 100% on R/A; zb 18:05 BP 139 / 55; Pulse 61; Resp 18; Temp 99.5(R); Pulse Ox 100% ; zb 19:30 BP 141 / 55; Pulse 66; Resp 18; Temp 98.8(R); Pulse Ox 100% on R/A; zb MDM: 12:05 Patient medically screened. rn 16:07 Differential Diagnosis: pneumonia, sepsis, UTI, volume depletion, COVID. Data reviewed: rn vital signs, nurses notes, lab test result(s), EKG, radiologic studies, CT scan, plain films, and as a result, I will admit patient. Counseling: I had a detailed discussion with the patient and/or guardian regarding: the historical points, exam findings, and any diagnostic results supporting the discharge/admit diagnosis, lab results, radiology results, the need for further work-up and treatment in the hospital. Response to treatment: the patient's symptoms have mildly improved after treatment, and as a result, I will admit patient. Admission orders: after a detailed discussion of the patient's condition and case, the admit orders are written by me. Refusal of service: The patient/guardian displays adequate decision making capability and despite a detailed discussion of alternatives, benefits, risks, and consequences refuses: Admission to the hospital for further work-up and treatment. ED course: Daughter refuses admission. Told her patient tested positive for COVID once again, could be from persistent positive but would need antibody testing to differentiate, as well as has UTI. Recommend admission. She consulted with "9 family members" and they want to take her home. They do not believe she has COVID because she "doesn't have symptoms", and they have dealt with UTI's in the past. Recommended admission given hypothermia and weakness and chance of sepsis, family does not believe what I am saying. Given rocephin. Will leave AMA. Nurse and I both spoke with patient and daughter several times. . 16:34 ED course: Spoke with patient and family again, now interested in being admitted here, rn will admit to Dr. Arshad.. 09/05 12:26 Order name: CBC with Diff rn 09/05 12:26 Order name: Basic Metabolic Panel rn 09/05 12:26 Order name: Urine Culture rn 09/05 12:26 Order name: Urine Microscopic Only; Complete Time: 16: rn 09/05 12:26 Order name: Blood Culture Adult (2) rn 09/05 12:26 Order name: Procalcitonin; Complete Time: 16: rn 09/05 12:26 Order name: TSH; Complete Time: 16: rn 09/05 12:26 Order name: T4 Free; Complete Time: 16: rn 09/05 12:26 Order name: Magnesium; Complete Time: 16: rn 09/05 12:27 Order name: CBC with Automated Diff EDMS 09/05 12:27 Order name: Basic Metabolic Panel; Complete Time: 16: EDMS 09/05 13:08 Order name: Lactate; Complete Time: 13:53 rn 09/05 12:26 Order name: CT Head Brain wo Cont; Complete Time: 13:08 rn 09/05 12:26 Order name: IV Start; Complete Time: 13:06 rn 09/05 12:26 Order name: Urine Dipstick-Ancillary (obtain specimen); Complete Time: 13:55 rn 09/05 12:26 Order name: XRAY Chest (1 view); Complete Time: 13:29 rn 09/05 13:24 Order name: Labs - recollect needed: recollect everything except lactate; Complete bd Time: 13:55 09/05 13:33 Order name: Urine Dipstick--Ancillary (enter results); Complete Time: 13:53 bd 09/05 15:10 Order name: COVID-19/FLU A+B; Complete Time: 16:01 EDMS 09/05 17:26 Order name: Diet Ada 2000 Gulshan; Complete Time: 17:26 zb 09/05 20:37 Order name: Glucose, Ancillary Testing EDMS Administered Medications: 13:00 Drug: NS 0.9% 500 ml Route: IV; Rate: bolus; Site: right antecubital; zb 15:50 Follow up: Response: No adverse reaction; IV Status: Completed infusion; IV Intake: zb 500ml 16:52 Drug: SOLU-Medrol 125 mg Route: IVP; Site: right antecubital; zb 17:26 Follow up: Response: No adverse reaction zb 16:52 Drug: Rocephin 1 grams Route: IV; Rate: calculated rate; Site: right antecubital; zb 17:26 Follow up: Response: No adverse reaction; IV Status: Completed infusion; IV Intake: 20mlzb Disposition: 09/05/20 16:36 Hospitalization ordered by Cole Arshad for Inpatient Admission. Preliminary diagnosis are Weakness, Coronavirus infection, unspecified, Urinary tract infection, site not specified, Hypothermia. - Bed requested for [facility] ER HOLD. - Status is Inpatient Admission. sf - Condition is Stable. - Problem is new. - Symptoms have improved. Signatures: Dispatcher [employer] EDMS Mamta Mansfield Roman, MD MD rn Calderon, Audri, RN RN aa5 Katerin Jackson RN RN zb Fitzpatrick, Steven, RN RN sf Corrections: (The following items were deleted from the chart) 13:55 12:27 Influenza Screen (A \\T\\ B)+BA.LAB.BRZ ordered. EDGA EDMS 13:55 12:27 CORONAVIRUS+MR.LAB.BRZ ordered. EDGA EDMS 16:34 16:13 09/05/2020 16:13 Patients has left against medical advice. Impression: rn Coronavirus infection, unspecified; Urinary tract infection, site not specified; Hypothermia; Weakness. Patient states they are going to Home. Condition is Fair. Follow up: Private Physician; When: Upon discharge from the Emergency Department; Reason: Recheck today's complaints, Re-evaluation by your physician. Problem is new. Symptoms have improved. rn 16:47 16:36 Hospitalization Ordered by Cole Arshad MD for Inpatient Admission. Preliminary aa5 diagnosis is Weakness; Coronavirus infection, unspecified; Urinary tract infection, site not specified; Hypothermia. Bed requested for Telemetry/MedSurg (Inpatient). Status is Inpatient Admission. Condition is Stable. Problem is new. Symptoms have improved. rn 21:36 16:47 09/05/2020 16:36 Hospitalization Ordered by Cole Arshad MD for Inpatient sf Admission. Preliminary diagnosis is Weakness; Coronavirus infection, unspecified; Urinary tract infection, site not specified; Hypothermia. Bed requested for [facility] ER HOLD. Status is Inpatient Admission. Condition is Stable. Problem is new. Symptoms have improved. aa5
--- NOTE | 2020-09-05 20:51 | P.SSS ---
Patient History Date of Service: 09/05/20 Reason for admission: HYPOTHERMIA History of Present Illness: Patient is an 85-year-old female who came to the hospital with altered mental status. Patient had weakness and it appears she may have had a CVA a so they brought her into the emergency room. Her workup in the emergency room revealed a urinary tract infection. CT of the brain was negative. Patient will be admitted to the hospital for further evaluation. Allergies No Known Allergies Allergy (Verified 10/06/18 13:58) Home Medications: Alendronate Sodium 70 mg PO Q7D 04/30/18 Amlodipine Besylate 10 mg PO DAILY 04/30/18 Insulin Aspart Prot/Insuln Asp [Novolog Mix 70-30 Flexpen] 10 unit SQ DAILY 04/30/18 Metformin HCl 1,000 mg PO BIDWM 04/30/18 Simvastatin 20 mg PO BEDTIME 04/30/18 carvediloL [Carvedilol] 12.5 mg PO BIDWM 04/30/18 Albuterol Sulfate [Proair Hfa] 8.5 gm IH Q6HP PRN #1 hfa.aer.[email or web address] 05/04/18 Pantoprazole [Protonix Tab*] 40 mg PO DAILYAC #30 tab 10/07/18 levoFLOXacin [Levaquin*] 250 mg PO DAILY #10 tab 10/08/18 Cefdinir [Omnicef] 300 mg PO BID #20 capsule 09/05/20 - Past Medical/Surgical History Diabetic: Yes -: 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 -: HTN -: hyperlipidemia, -: COPD -: Rt knee surg -: lana -: toncilectomy -: hystectomy -: appy - Family History Father -: Cancer Notes: prostrate Mother -: Stroke - Social History Alcohol use: No CD- Drugs: No Caffeine use: Yes Review of Systems 10-point ROS is otherwise unremarkable Physical Examination - Vital Signs Temperature: 98 F Blood Pressure: 140/70 Pulse: 88 Respirations: 18 Pulse Ox (%): 96 - Physical Exam General: Alert, In no apparent distress, Oriented x3 HEENT: Atraumatic, PERRLA, Mucous membr. moist/pink, EOMI, Sclerae nonicteric Neck: Supple, 2+ carotid pulse no bruit, No LAD, Without JVD or thyroid abnormality Respiratory: Clear to auscultation bilaterally, Normal air movement Cardiovascular: Regular rate/rhythm, Normal S1 S2, No murmurs Gastrointestinal: Normal bowel sounds, Soft and benign, Non-distended, No tenderness Musculoskeletal: No clubbing, No swelling, No tenderness Integumentary: No rashes Neurological: Normal gait, Normal speech, Normal strength at 5/5 x4 extr, Normal tone, Normal affect Lymphatics: No axilla or inguinal lymphadenopathy - Studies Laboratory Data (last 24 hrs) 09/05/20 14:00: Sodium 140, Potassium 4.7, BUN 32 H, Creatinine 2.07 H, Glucose 199 H, Magnesium 1.7 L 09/05/20 14:00: WBC 8.80, Hgb 8.1 L, Hct 25.5 L, Plt Count 163 - Diagnosis (Problem(s)) (1) Atypical pneumonia Status: Acute (2) COPD with acute exacerbation Status: Acute (3) CHF (congestive heart failure), NYHA class I Onset Date: 05/03/18 Status: Chronic Qualifiers: Congestive heart failure type: diastolic Congestive heart failure chronicity: chronic Qualified Code(s): I50.32 - Chronic diastolic (congestive) heart failure (4) Diabetes 1.5, managed as type 2 Onset Date: 05/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 Mentation improved strength improved. At this time patient is stable for discharge. We will arrange for Further Operation treatment over the next 7 days. - Disposition Disposition: ROUTINE DISCHARGE Condition: GOOD Prescriptions: Cefdinir [Omnicef] 300 mg PO BID #20 capsule Followup: Hayden Cancino MD [Primary Care Provider] - 1-2 weeks (Call office for apointment.) Diet: AHA Activity: Fall precautions Critical Care: No Time Spent Managing Pts Care (In Minutes): 45
[2020-09-05 22:18] LABS: Anisocytosis 2+; Blood Morphology Comment NOTED (NOT SEEN); Burr Cells FEW; Ovalocytes SLIGHT; Platelet Estimate ADEQ; Poikilocytosis 1+; Teardrop Cell FEW; White Blood Cell Scan OK (OK)
[2020-09-06 01:06] VITALS: O2SAT 100
[2020-09-25 05:37] VITALS: BP 140/70; TEMP 98
== END | disposition home or self-care (01) ==
LOC: ER 11:45
DX: U07.1 COVID-19 (principal); N39.0 Urinary tract infection, site not specified; T68.XXXA Hypothermia, initial encounter; J44.9 Chronic obstructive pulmonary disease, unspecified; E11.9 Type 2 diabetes mellitus without complications; Z79.4 Long term (current) use of insulin; E78.00 Pure hypercholesterolemia, unspecified; I10 Essential (primary) hypertension; E78.5 Hyperlipidemia, unspecified
CPT/HCPCS: 93005; 87040 ×2; 87088; 85025; 87086; 80048; 36415; 83735; 87205 ×2; 82947; 83605; 84443; 84439; 84145; 0240U; 70450; 71045; J0696; J7040; J2930 ×2; 81003; 81015; 87077; 87186; 96361; 96365; 96375; 99284